=== PATIENT | male | born 1960 | race Caucasian/White ===

== ENCOUNTER 2016-10-27 21:18 | Inpatient (IN) | payer OTHER, MEDICARE ==
[~2016-10-27] VITALS: Ht 177.8 cm; Wt 82.0 kg
[~2016-10-27 21:18] MED LIST: ABIL5TAB6 PO; ACLI1AER2 INH; FENO160T PO; FURO20TA PO; GLIP10TA6 PO; INSU100V SQ; LANS30CA PO; LOPE2TAB3 PO; METF500 PO; MOBI15TA PO; OXYM20TA PO; PRAV40TA PO; TAMS5CAP PO; VENL75TA PO; VENTAER INH; ZOFR4TAB3 SL
[2016-10-27 21:38] VITALS: BP 156/78; PULSE 72; RESP 18; TEMP 97.5; O2SAT 95
--- NOTE | 2016-10-27 22:18 | PD ---
HPI Chief Complaint: Psychiatric Symptoms Time Seen by Provider: 22:15 Travel History International Travel<30 days: No Contact w/Intl Traveler<30days: No Traveled to known affect area: No History of Present Illness HPI 56-year-old male that presents to the ED for evaluation of psych. Patient was Valladares acted by police after apparently he made suicidal statements to police. Patient states that he feels that presents is taking medications but it doesn't seem to be helping. Per patient he has more stressors in his life that are worsening his depression. He states that he has a history of hypertension and diabetes. Per patient he takes medications for depression but does seem to be working any more. He also states that he abuses cocaine. He denies any recently. He has no homicidal ideation. He states that his plan is to take all his pills. He denies any recent injury. No falls. No chest pain or shortness of breath. States that his symptoms are moderate. This has been worsening for the past couple of weeks. PFSH Past Medical History Asthma: Yes Anxiety: Yes Depression: Yes Cancer: No Cardiovascular Problems: Yes High Cholesterol: Yes Diabetes: Yes (TYPE 2) Gastrointestinal Disorders: Yes (hernia repair at age 8 ) Genitourinary: No Immune Disorder: No Musculoskeletal: No Neurologic: No Psychiatric: Yes Reproductive: No Respiratory: Yes (ASTHMA) Immunizations Current: Yes Thyroid Disease: No Past Surgical History Abdominal Surgery: Yes (hernia, appendectomy) Appendectomy: Yes Other Surgery: Yes (hernia repair) Social History Alcohol Use: Yes (occasionally) Tobacco Use: Yes (1 ppd) Substance Use: No Allergies-Medications (Allergen,Severity, Reaction): Coded Allergies: Trazodone (Verified Allergy, Unknown, Swelling, 10/27/16) Reported Meds & Prescriptions Reported Meds & Active Scripts Active Loperamide (Loperamide HCl) 2 Mg Tab 2 Mg PO DIRECTED PRN One tablet after each loose stool. Not to exceed 8 tablets per day. Zofran Odt (Ondansetron Odt) 4 Mg Tab 4 Mg SL Q6HR PRN Reported Effexor (Venlafaxine HCl) 75 Mg Tab 75 Mg PO DAILY Lansoprazole 30 Mg Capdr 30 Mg PO DAILY Ventolin Hfa 18 GM Inh (Albuterol Sulfate) 90 Mcg/Act Aer 2 Puff INH Q4H PRN Pravachol (Pravastatin) 40 Mg Tab 40 Mg PO HS Opana ER (Crush Resistant) (Oxymorphone HCl) 20 Mg Tab 20 Mg PO Q12H Mobic (Meloxicam) 15 Mg Tab 15 Mg PO DAILY Glucophage (Metformin HCl) 500 Mg Tab 500 Mg PO TIDPC With meals Glipizide 10 Mg Tab 10 Mg PO BIDAC Take 30 minutes before a meal Furosemide 20 Mg Tab 20 Mg PO DAILY Flomax (Tamsulosin HCl) 0.4 Mg Cap 0.4 Mg PO HS Abilify (Aripiprazole) 5 Mg Tab 5 Mg PO DAILY Tudorza Pressair Inh (Aclidinium [place] Inh) 400 Mcg/Act Aerp 1 Puff INH BID Fenofibrate 160 Mg Tab 160 Mg PO DAILY Humalog Mix 75-25 Inj (Insulin Lispro Protam/Lispro Human) 1,000 Unit/10 Ml Susp 10 Units SQ BID Review of Systems Except as stated in HPI: all other systems reviewed are Neg Physical Exam Narrative GENERAL: SKIN: Warm and dry. HEAD: Atraumatic. Normocephalic. EYES: Pupils equal and round. No scleral icterus. No injection or drainage. ENT: No nasal bleeding or discharge. Mucous membranes pink and moist. Tongue is midline. No uvula deviation. NECK: Trachea midline. No JVD. CARDIOVASCULAR: Regular rate and rhythm. No murmurs, S3, S4. RESPIRATORY: No accessory muscle use. Clear to auscultation. Breath sounds equal bilaterally. GASTROINTESTINAL: Abdomen soft, non-tender, nondistended. Hepatic and splenic margins not palpable. MUSCULOSKELETAL: Extremities without clubbing, cyanosis, or edema. No obvious deformities. Full range of motion of the upper and lower extremities bilaterally. 2+ pulses bilaterally. NEUROLOGICAL: Awake and alert. No obvious cranial nerve deficits. Motor grossly within normal limits. Five out of 5 muscle strength in the arms and legs. Normal speech. PSYCHIATRIC: Depressed mood and affect; insight and judgment normal. Data Data Last Documented VS Vital Signs Date Time Temp Pulse Resp B/P Pulse Ox O2 Delivery O2 Flow Rate FiO2 10/27/16 21:38 97.5 72 18 156/78 95 Orders Complete Blood Count With Diff (10/27/16 21:44) Comprehensive Metabolic Panel (10/27/16 21:44) Psych Screen (10/27/16 21:44) Drug Screen, Random Urine (10/27/16 21:44) Alcohol (Ethanol) (10/27/16 21:44) Labs Laboratory Tests Test 10/27/16 22:15 White Blood Count 10.3 TH/MM3 Red Blood Count 5.06 MIL/MM3 Hemoglobin 15.0 GM/DL Hematocrit 43.6 % Mean Corpuscular Volume 86.2 FL Mean Corpuscular Hemoglobin 29.6 PG Mean Corpuscular Hemoglobin 34.4 % Concent Red Cell Distribution Width 12.9 % Platelet Count 238 TH/MM3 Mean Platelet Volume 8.2 FL Neutrophils (%) (Auto) 62.3 % Lymphocytes (%) (Auto) 27.1 % Monocytes (%) (Auto) 7.7 % Eosinophils (%) (Auto) 2.5 % Basophils (%) (Auto) 0.4 % Neutrophils # (Auto) 6.4 TH/MM3 Lymphocytes # (Auto) 2.8 TH/MM3 Monocytes # (Auto) 0.8 TH/MM3 Eosinophils # (Auto) 0.3 TH/MM3 Basophils # (Auto) 0.0 TH/MM3 CBC Comment DIFF FINAL Differential Comment Sodium Level 134 MEQ/L Potassium Level 3.7 MEQ/L Chloride Level 96 MEQ/L Carbon Dioxide Level 30.0 MEQ/L Anion Gap 8 MEQ/L Blood Urea Nitrogen 10 MG/DL Creatinine 1.00 MG/DL Estimat Glomerular Filtration 78 ML/MIN Rate Random Glucose 283 MG/DL Calcium Level 8.6 MG/DL Total Bilirubin 0.3 MG/DL Aspartate Amino Transf 15 U/L (AST/SGOT) Alanine Aminotransferase 36 U/L (ALT/SGPT) Alkaline Phosphatase 84 U/L Total Protein 7.1 GM/DL Albumin 3.9 GM/DL Ethyl Alcohol Level LESS THAN 3 MG/DL [facility] Medical Decision Making Medical Screen Exam Complete: Yes Emergency Medical Condition: Yes Medical Record Reviewed: Yes Interpretation(s) CBC & BMP Diagram 10/27/16 22:15 tox negative Differential Diagnosis Depression versus suicidal ideation versus anxiety versus adjustment disorder versus mood disorder versus bipolar disorder versus schizophrenia versus paranoid disorder versus psychosis versus substance abuse versus alcohol abuse versus alcohol induced psychosis versus homicidality addition versus cutting versus personality disorder Narrative Course 56-year-old male that presents to the ED for evaluation of psych. Patient was properly examined and was found to have signs and symptoms consistent with psychiatric illness. No sign of acute medical distress. Labs were drawn. Patient will be medically clear. Okay to be seen by psych. Mental health screening was discussed with the patient. Diagnosis Primary Impression: Depression Qualified Code: F33.1 - Moderate episode of recurrent major depressive disorder Flaco Gregg Oct 27, 2016 22:18
[2016-10-27 22:28] LABS: AUTOMATED NEUTROPHIL # 6.4 TH/MM3 (1.8-7.7); BASOPHIL % 0.4 % (0.0-2.0); EOSINOPHIL # 0.3 TH/MM3 (0-0.4); EOSINOPHIL % 2.5 % (0.0-4.0); HEMATOCRIT 43.6 % (39.0-51.0); HEMO FLAGS DIFF FINAL; LYMPH % 27.1 % (9.0-44.0); LYMPHOCYTE # 2.8 TH/MM3 (1.0-4.8); MEAN CELL VOLUME 86.2 FL (80.0-100.0); MEAN CORPUSCULAR HEMOGLOBIN 29.6 PG (27.0-34.0); MEAN CORPUSCULAR HGB CONC 34.4 % (32.0-36.0); MONO % 7.7 % (0.0-8.0); NEUT % 62.3 % (16.0-70.0); PLATELET COUNT 238 TH/MM3 (150-450); RED BLOOD COUNT 5.06 MIL/MM3 (4.50-5.90); RED CELL DISTRIBUTION WIDTH 12.9 % (11.6-17.2); WHITE BLOOD COUNT 10.3 TH/MM3 (4.0-11.0)
[2016-10-27 22:42] LABS: ANION GAP 8 MEQ/L (5-15)
[2016-10-27 22:46] LABS: ALKALINE PHOSPHATASE 84 U/L (45-117); ALT (GPT) 36 U/L (12-78); AST (GOT) 15 U/L (15-37); BLOOD UREA NITROGEN 10 MG/DL (7-18); CHLORIDE 96 MEQ/L (98-107); GLOMERULAR FILTRATION RATE 78 ML/MIN (>89); POTASSIUM 3.7 MEQ/L (3.5-5.1); SODIUM (NA) 134 MEQ/L (136-145); TOTAL BILIRUBIN ADULT 0.3 MG/DL (0.2-1.0)
[2016-10-28 00:12] LABS: AMPHETAMINE, URINE NEG (NEG); BARBITURATES, URINE NEG (NEG); COCAINE, URINE POS (NEG)
[2016-10-28 02:00] VITALS: BP 110/58; PULSE 64; RESP 18; O2SAT 97
[2016-10-28 06:13] VITALS: BP 101/51; PULSE 70; RESP 18; O2SAT 95
--- NOTE | 2016-10-28 12:29 | PD ---
History of Present Illness Chief Complaint: Psychiatric Symptoms Time Seen by Provider: 12:15 Travel History International Travel<30 Days: No Contact w/Intl Traveler<30days: No Known affected area: No Legal Status Legal Status: Valladares Act Valladares Act Signed By: Chuy Valladares Act Comment: 10/27/162039 History of Present Illness: History of Present Illness HPI 56-year-old male with history of depression possibly bipolar disorder who presents to ED under a BA initiated by [facility]. As per the report " subject is depressed and without help he will take all of his prescriptions to kill himself ". The patient reports that he feels his medications aren't working well and last night he was on the phone with his sister and " she called the police". He is vague as to why she possibly called the police and then states " possibly what I said. I don't know". He is vague and only provides minimal information. He is irritable and becomes angry when attempts are made to clarify information. From what I can gather he has been taking Effexor and Abilify for the past 6 years. He stopped taking the Abilify 4 weeks ago and for the past 3 or so weeks has been feeling more depressed with reported low energy and anhedonia, difficulty falling asleep or oversleeping as well as decreased appetite. Patient has also been using cocaine Patient was monitored in [place]. He presented no behavioral concerns besides his lack of effort at providing information. No suicidality." to help me with my depression". He went to see his psychiatrist who advised him to restart the Abilify. He is unable to tell me who the psychiatrist is although he reports he has been under his care for at least the past 2 and half years. He is alert and oriented. Mood is irritable with low frustration tolerance. Speech is clear and logical. Does not appear to be responding to internal stimuli. He continues to endorse suicidal ideation with intent to overdose on his prescription medication. he has access to multiple medications. EMR reviewed and this is his first contact with [facility] [place] [facility]. Current toxicology is positive for cocaine as well as opiates which are prescribed. PFSH Past Medical History Asthma: Yes Anxiety: Yes Depression: Yes Cancer: No Cardiovascular Problems: Yes High Cholesterol: Yes Diabetes: Yes (TYPE 2) Patient Takes Glucophage: Yes (10/27/2016 1700) Gastrointestinal Disorders: Yes (hernia repair at age 8 ) Genitourinary: No Immune Disorder: No Musculoskeletal: No Neurologic: No Psychiatric: Yes Reproductive: No Respiratory: Yes (ASTHMA) Immunizations Current: Yes Thyroid Disease: No Tetanus Vaccination: Unknown Past Surgical History Abdominal Surgery: Yes (hernia, appendectomy) Appendectomy: Yes Other Surgery: Yes (hernia repair) Psychiatric History Psychiatric History Hx Psychiatric Treatment: Reports last psychiatric hosp approximately 6 years ago in [place]. No other information is provided. History of Inpatient Treatment: Yes Guns or firearms in home: No Social History In the area x 3 years. Lives alone. On disability. Unable to obtain other information. Hx Alcohol Use: Yes (occasionally) Hx Tobacco Use: Yes (1 ppd) Hx Substance Use: Yes Substance Use Type: Benzos (Valium,Xanax), Cocaine Hx of Substance Use Treatment: No Family Psychiatric History None reported. Allergies-Medications (Allergen,Severity, Reaction): Coded Allergies: Trazodone (Verified Allergy, Unknown, Swelling, 10/27/16) Reported Meds & Prescriptions Reported Meds & Active Scripts Active Loperamide (Loperamide HCl) 2 Mg Tab 2 Mg PO DIRECTED PRN One tablet after each loose stool. Not to exceed 8 tablets per day. Zofran Odt (Ondansetron Odt) 4 Mg Tab 4 Mg SL Q6HR PRN Reported Effexor (Venlafaxine HCl) 75 Mg Tab 75 Mg PO DAILY Lansoprazole 30 Mg Capdr 30 Mg PO DAILY Ventolin Hfa 18 GM Inh (Albuterol Sulfate) 90 Mcg/Act Aer 2 Puff INH Q4H PRN Pravachol (Pravastatin) 40 Mg Tab 40 Mg PO HS Opana ER (Crush Resistant) (Oxymorphone HCl) 20 Mg Tab 20 Mg PO Q12H Mobic (Meloxicam) 15 Mg Tab 15 Mg PO DAILY Glucophage (Metformin HCl) 500 Mg Tab 500 Mg PO TIDPC With meals Glipizide 10 Mg Tab 10 Mg PO BIDAC Take 30 minutes before a meal Furosemide 20 Mg Tab 20 Mg PO DAILY Flomax (Tamsulosin HCl) 0.4 Mg Cap 0.4 Mg PO HS Abilify (Aripiprazole) 5 Mg Tab 5 Mg PO DAILY Tudorza Pressair Inh (Aclidinium [place] Inh) 400 Mcg/Act Aerp 1 Puff INH BID Fenofibrate 160 Mg Tab 160 Mg PO DAILY Humalog Mix 75-25 Inj (Insulin Lispro Protam/Lispro Human) 1,000 Unit/10 Ml Susp 10 Units SQ BID Review of Systems ROS Limitations: Uncooperative Psychiatric: COMPLAINS OF: Depression, Suicidal Ideation Exam Alert: Yes [place]: Person (ox4) Mood: Depressed, Other (irritable, easily annoyed. ) Affect: Other (congruent to mood) Speech: Clear, Logical Eye Contact: Indirect Memory Intact: Comment (poor at present. Not formally tetsted) Hallucinations: Other (negative) Delusions: No Suicidal: Plan (to overdose on his prescribed medications), Ideation Homicidal: Ideation (deneis) Insight/Judgement poor. poor MDM Medical Decision Making Medical Record Reviewed: Yes Assessment/Plan 56 year old male with history of depression , unknown to [facility] psychiatry dept, under a BA for suicidal ideation with plan of overdosing on his prescriptions. At this time patient remains guarded, evasive, irritable and only minimally cooperative. He continues to endorse suicidal ideation. Current toxicology is positive for cocaine which with reported poor medication adherence may be contributing to current presentations and symptoms.At this time increase in level of care such as inpatient psychiatric treatment is recommended in order to further evaluate, stabilize symptoms, maintain his safety and adjust medications Orders Complete Blood Count With Diff (10/27/16 21:44) Comprehensive Metabolic Panel (10/27/16 21:44) Psych Screen (10/27/16 21:44) Drug Screen, Random Urine (10/27/16 21:44) Alcohol (Ethanol) (10/27/16 21:44) Diet Diabetic (10/28/16 Breakfast) Diet Regular Basic (10/28/16 Lunch) Results Vital Signs Date Time Temp Pulse Resp B/P Pulse Ox O2 Delivery O2 Flow Rate FiO2 10/28/16 06:13 70 18 101/51 95 Room Air 10/28/16 02:00 64 18 110/58 97 Room Air 10/27/16 21:38 97.5 72 18 156/78 95 Laboratory Tests Test 10/27/16 10/27/16 22:15 23:40 White Blood Count 10.3 Red Blood Count 5.06 Hemoglobin 15.0 Hematocrit 43.6 Mean Corpuscular Volume 86.2 Mean Corpuscular Hemoglobin 29.6 Mean Corpuscular Hemoglobin 34.4 Concent Red Cell Distribution Width 12.9 Platelet Count 238 Mean Platelet Volume 8.2 Neutrophils (%) (Auto) 62.3 Lymphocytes (%) (Auto) 27.1 Monocytes (%) (Auto) 7.7 Eosinophils (%) (Auto) 2.5 Basophils (%) (Auto) 0.4 Neutrophils # (Auto) 6.4 Lymphocytes # (Auto) 2.8 Monocytes # (Auto) 0.8 Eosinophils # (Auto) 0.3 Basophils # (Auto) 0.0 CBC Comment DIFF FINAL Differential Comment Sodium Level 134 Potassium Level 3.7 Chloride Level 96 Carbon Dioxide Level 30.0 Anion Gap 8 Blood Urea Nitrogen 10 Creatinine 1.00 Estimat Glomerular Filtration 78 Rate Random Glucose 283 Calcium Level 8.6 Total Bilirubin 0.3 Aspartate Amino Transf 15 (AST/SGOT) Alanine Aminotransferase 36 (ALT/SGPT) Alkaline Phosphatase 84 Total Protein 7.1 Albumin 3.9 Ethyl Alcohol Level LESS THAN 3 Urine Opiates Screen POS Urine Barbiturates Screen NEG Urine Amphetamines Screen NEG Urine Benzodiazepines Screen NEG Urine Cocaine Screen POS Urine Cannabinoids Screen NEG Diagnosis Primary Impression: Depression Admitting Information Admitting Physician Requests: Admit Problem Qualifiers Primary Impression: Depression Qualified Code: F33.1 - Moderate episode of recurrent major depressive disorder Holly Shine Oct 28, 2016 12:29
[2016-10-28 14:00] VITALS: BP 108/53; PULSE 54; RESP 16
[2016-10-28] MEDS ORDERED: ALUMINUM/MAGNESIUM/SIMETH 30 ML CUP PO PRN (14:00)
[2016-10-28] MEDS ORDERED: MAGNESIUM HYDROXIDE SUSP 30 ML CUP PO PRN (14:00)
[2016-10-28] MEDS ORDERED: ACETAMINOPHEN 325 MG TAB PO PRN (14:00)
--- NOTE | 2016-10-28 15:18 | PD.CONS ---
HPI Service [facility] Consult Requested By Dr. Roth Reason for Consult Medical comanagement of diabetes and hypertension Primary Care Physician Non-Staff Diagnoses: History of Present Illness This is a 56-year-old male admitted to the psych unit after patient was Valladares acted for suicidal statements. Patient was taken off his antidepressants about 4 weeks ago and now, with more stressors, he is feeling depressed and would like to kill himself. Has a history of hypertension, diabetes and asthma but these have been stable. He does not his last hemoglobin A1c. Patient denies any chest pain, shortness of breath, nausea, vomiting, recent hypoglycemia, fever or lower extremity swelling. Review of Systems ROS Limitations: Other (All other pertinent systems were reviewed and are negative.) Past Family Social History Allergies: Coded Allergies: Trazodone (Verified Allergy, Unknown, Swelling, 10/27/16) Past Medical History Depression Asthma Anxiety Diabetes mellitus Dyslipidemia Past Surgical History Herniorrhaphy Appendectomy Reported Medications Loperamide (Loperamide HCl) 2 Mg Tab 2 Mg PO DIRECTED PRN One tablet after each loose stool. Not to exceed 8 tablets per day. Zofran Odt (Ondansetron Odt) 4 Mg Tab 4 Mg SL Q6HR PRN Effexor (Venlafaxine HCl) 75 Mg Tab 75 Mg PO DAILY Lansoprazole 30 Mg Capdr 30 Mg PO DAILY Ventolin Hfa 18 GM Inh (Albuterol Sulfate) 90 Mcg/Act Aer 2 Puff INH Q4H PRN Pravachol (Pravastatin) 40 Mg Tab 40 Mg PO HS Opana ER (Crush Resistant) (Oxymorphone HCl) 20 Mg Tab 20 Mg PO Q12H Mobic (Meloxicam) 15 Mg Tab 15 Mg PO DAILY Glucophage (Metformin HCl) 500 Mg Tab 500 Mg PO TIDPC With meals Glipizide 10 Mg Tab 10 Mg PO BIDAC Take 30 minutes before a meal Furosemide 20 Mg Tab 20 Mg PO DAILY Flomax (Tamsulosin HCl) 0.4 Mg Cap 0.4 Mg PO HS Abilify (Aripiprazole) 5 Mg Tab 5 Mg PO DAILY Tudorza Pressair Inh (Aclidinium [place] Inh) 400 Mcg/Act Aerp 1 Puff INH BID Fenofibrate 160 Mg Tab 160 Mg PO DAILY Humalog Mix 75-25 Inj (Insulin Lispro Protam/Lispro Human) 1,000 Unit/10 Ml Susp 10 Units SQ BID Family History No family history of diabetes or heart problems Social History Admits to using cocaine, last use was 4 days ago, allegedly does not use it often. Drinks alcohol occasionally, smokes 1 pack a day Physical Exam Vital Signs Vital Signs Date Time Temp Pulse Resp B/P Pulse Ox O2 Delivery O2 Flow Rate FiO2 10/28/16 06:13 70 18 101/51 95 Room Air 10/28/16 02:00 64 18 110/58 97 Room Air 10/27/16 21:38 97.5 72 18 156/78 95 Physical Exam Not in distress, well-nourished, looks stated age PERRL, pink conjunctiva without injection, anicteric Nose without bleeding, airway patent, oropharynx clear Supple neck, no masses or thyromegaly, trachea midline Normal rate and regular rhythm, no murmurs gallops or rubs appreciated. Clear to auscultation and symmetric bilaterally, normal respiratory effort. Normal bowel sounds, soft, non-tender, nondistended, no guarding. Extremities without clubbing, cyanosis, or edema. No rash of generalized distribution. Skin is warm and dry. AAO x3, no cranial nerve deficits, moves all 4 extremities, no focal neurologic deficits Normal mood, appropriate affect Laboratory Laboratory Tests Test 10/27/16 10/27/16 22:15 23:40 White Blood Count 10.3 Red Blood Count 5.06 Hemoglobin 15.0 Hematocrit 43.6 Mean Corpuscular Volume 86.2 Mean Corpuscular Hemoglobin 29.6 Mean Corpuscular Hemoglobin 34.4 Concent Red Cell Distribution Width 12.9 Platelet Count 238 Mean Platelet Volume 8.2 Neutrophils (%) (Auto) 62.3 Lymphocytes (%) (Auto) 27.1 Monocytes (%) (Auto) 7.7 Eosinophils (%) (Auto) 2.5 Basophils (%) (Auto) 0.4 Neutrophils # (Auto) 6.4 Lymphocytes # (Auto) 2.8 Monocytes # (Auto) 0.8 Eosinophils # (Auto) 0.3 Basophils # (Auto) 0.0 CBC Comment DIFF FINAL Differential Comment Sodium Level 134 Potassium Level 3.7 Chloride Level 96 Carbon Dioxide Level 30.0 Anion Gap 8 Blood Urea Nitrogen 10 Creatinine 1.00 Estimat Glomerular Filtration 78 Rate Random Glucose 283 Calcium Level 8.6 Total Bilirubin 0.3 Aspartate Amino Transf 15 (AST/SGOT) Alanine Aminotransferase 36 (ALT/SGPT) Alkaline Phosphatase 84 Total Protein 7.1 Albumin 3.9 Ethyl Alcohol Level LESS THAN 3 Urine Opiates Screen POS Urine Barbiturates Screen NEG Urine Amphetamines Screen NEG Urine Benzodiazepines Screen NEG Urine Cocaine Screen POS Urine Cannabinoids Screen NEG Result Diagram: 10/27/16221410/27/162214 Assessment and Plan Problem List: (1) Asthma ICD Code: J45.909 Status: Chronic (2) GERD (gastroesophageal reflux disease) ICD Code: K21.9 Status: Chronic (3) Hyperlipidemia ICD Code: E78.5 Status: Chronic (4) Diabetes ICD Code: E11.9 Status: Chronic Assessment and Plan This is a 56-year-old male with history of diabetes mellitus and dyslipidemia presenting to the hospital with suicidal ideations, admitted to the psych unit. Diabetes mellitus-restart glipizide, metformin, Humalog per home dose and sliding scale insulin, check hemoglobin A1c. Kidney function stable, on Lasix. Asthma-not in exacerbation, continue Ventolin as needed. Dyslipidemia-continue fenofibrate and pravastatin BPH-restart Flomax DVT prophylaxis: Low risk, patient ambulatory Thank you very much for this consult. We will follow along with you. Monisha Guevara MD Oct 28, 2016 15:18
[2016-10-28] MEDS ORDERED: ALBUTEROL SULFATE 90 MCG/ACT HFA 8 GM INHALER INH PRN (15:30)
[2016-10-28] MEDS ORDERED: ONDANSETRON ODT 4 MG TAB SL PRN (15:30)
[2016-10-28] MEDS ORDERED: ALBUTEROL SULFATE 90 MCG/ACT HFA 18 GM INHALER INH PRN (15:33)
[2016-10-28] MEDS ORDERED: DEXTROSE 50% IN WATER 50 ML VIAL(D50) IV PUSH PRN (15:45)
[2016-10-28] MEDS ORDERED: GLUCAGON 1 MG/ML VIAL OTHER PRN (15:45)
[2016-10-28] MEDS: glipiZIDE 10 MG TAB PO SCH (15:54)
[2016-10-28] MEDS: INSULIN ASPART SUPPLEMENTAL SCALE SQ SCH ×2 (15:58→21:14)
[2016-10-28 16:19] VITALS: BP 122/67; PULSE 54; RESP 16; TEMP 98.4; O2SAT 96
[2016-10-28] MEDS: metFORMIN HCL 500 MG TAB PO SCH (17:46)
[2016-10-28] MEDS ORDERED: INSULIN LISPRO PROTAMINE SQ SCH (21:00)
[2016-10-28] MEDS ORDERED: [UNRECOGNIZED DRUG - OTHER] SQ SCH (21:00)
[2016-10-28] MEDS ORDERED: INSULIN LISPRO SQ SCH (21:00)
[2016-10-28] MEDS ORDERED: ACLIDINIUM INH SCH (21:00)
[2016-10-28] MEDS ORDERED: ACLIDINIUM BROMIDE INH SCH (21:00)
[2016-10-28] MEDS: OXYMORPHONE 10 MG E.R. TAB PO SCH (21:12)
[2016-10-28] MEDS: PRAVASTATIN SOD 40 MG TAB PO SCH (21:15)
[2016-10-28] MEDS: TAMSULOSIN HCL 0.4 MG CAP PO SCH (21:15)
[2016-10-29 06:00] VITALS: BP 124/62; PULSE 5; RESP 17; TEMP 97.3; O2SAT 98
[2016-10-29] MEDS: INSULIN ASPART SUPPLEMENTAL SCALE SQ SCH ×4 (06:21→22:26)
[2016-10-29] MEDS: glipiZIDE 10 MG TAB PO SCH ×2 (06:22→16:12)
[2016-10-29] MEDS ORDERED: NON-FORMULARY DRUG (Fenofibrate 160 MG) PO SCH (09:00)
[2016-10-29] MEDS ORDERED: NON-FORMULARY DRUG (Lansoprazole 30 MG) PO SCH (09:00)
[2016-10-29] MEDS: metFORMIN HCL 500 MG TAB PO SCH ×3 (09:34→18:54)
[2016-10-29] MEDS: MELOXICAM 15 MG TAB PO SCH (09:34)
[2016-10-29] MEDS: FENOFIBRATE 145 MG TAB PO SCH (09:35)
[2016-10-29] MEDS: FUROSEMIDE 20 MG TAB PO SCH (09:35)
[2016-10-29] MEDS: PANTOPRAZOLE SOD 40 MG DELAYED RELEASE TAB PO SCH (09:35)
[2016-10-29 09:39] LABS: ANION GAP 5 MEQ/L (5-15); BICARBONATE 31.4 MEQ/L (21.0-32.0); BLOOD UREA NITROGEN 12 MG/DL (7-18); CHLORIDE 103 MEQ/L (98-107); GLOMERULAR FILTRATION RATE 99 ML/MIN (>89); HDL CHOLESTEROL 39.5 MG/DL (40.0-60.0); LDL CHOLESTEROL 55 MG/DL (0-99); SODIUM (NA) 139 MEQ/L (136-145)
[2016-10-29 11:02] LABS: HEMOGLOBIN A1a 1.3 %; HEMOGLOBIN A1b 2.3 %; HEMOGLOBIN Ao 80.7 %; HEMOGLOBIN LA1C 1.9 %; HEMOGLOBIN P3 4.1 %
[2016-10-29] MEDS: OXYMORPHONE 10 MG E.R. TAB PO SCH ×2 (12:57→21:00)
--- NOTE | 2016-10-29 14:29 | HHI.HP ---
Provisional Diagnosis Admission Date Oct 28, 2016 at 13:11 [place] I. Major depressive disorder, recurrent, severe, without psychosis, cocaine use disorder [place] II. Deferred [place] III. Diabetes mellitus Certification of Person's Competence To Provide Express and Informed Consent I have personally examined Ruperto Longoria , a person being served at [facility] on, Oct 29, 2016 14:24. Express and informed consent means consent voluntarily given in writing, by a competent person, after sufficient explanation and disclosure of the subject matter involved to enable the person to make a knowing and willful decision without any element of force, fraud, deceit, duress, or other form of constraint or coercion. This person is 18 years of age or older, is not now known to be incompetent to consent to treatment with a guardian advocate, and does not have a health care surrogate or proxy currently making medical treatment decisions. I have found this person to be one of the following: [X] Competent to provide express and informed consent, as defined above, for voluntary admission to this facility and is competent to provide express and informed consent for treatment. He/she has the consistent capacity to make well reasoned, willful, and knowing decisions concerning his or her medical or mental health treatment. The person fully and consistently understands the purpose of the admission for examination/placement and is fully capable of personally exercising all rights [place] Incompetent to provide express and informed consent to voluntary admission, and this is incompetent to provide express and informed consent to treatment. The person must be transferred to involuntary status and a petition for a guardian advocate filed with the Circuit Court. [] Refusing to provide express and informed consent to voluntary admission but is competent to provide express and informed consent for treatment. The person must be discharged or transferred to involuntary status. Form shall be completed within 24 hours of a person's arrival at the receiving facility and filed in the clinical record of each person: 1. Admitted on a voluntary basis 2. Permitted to provide express and informed consent to his/her own treatment 3. Allowed to transfer from involuntary to voluntary status 4. Prior to permitting a person to consent to his or her own treatment after having been previously found incompetent to consent to treatment. History of Present Illness Capacity: Has Capacity HPI As per Ms. Shine documentation: 56-year-old male with history of depression possibly bipolar disorder who presents to ED under a BA initiated by [facility]. As per the report " subject is depressed and without help he will take all of his prescriptions to kill himself". The patient reports that he feels his medications aren't working well and last night he was on the phone with his sister and " she called the police". He is vague as to why she possibly called the police and then states " possibly what I said. I don't know". He is vague and only provides minimal information. He is irritable and becomes angry when attempts are made to clarify information. From what I can gather he has been taking Effexor and Abilify for the past 6 years. He stopped taking the Abilify 4 weeks ago and for the past 3 or so weeks has been feeling more depressed with reported low energy and anhedonia, difficulty falling asleep or oversleeping as well as decreased appetite. Patient has also been using cocaine Patient was monitored in J pod. He presented no behavioral concerns besides his lack of effort at providing information. No suicidality." to help me with my depression ". He went to see his psychiatrist who advised him to restart the Abilify. He is unable to tell me who the psychiatrist is although he reports he has been under his care for at least the past 2 and half years. He is alert and oriented. Mood is irritable with low frustration tolerance. Speech is clear and logical. Does not appear to be responding to internal stimuli. He continues to endorse suicidal ideation with intent to overdose on his prescription medication. he has access to multiple medications. The patient is a 56-year-old man, domiciled alone in [place], single, unemployed, on disability, with psychiatric history of depression, numerous psychiatric hospitalizations, no previous suicidal attempts, he is on Abilify 50 mg and Effexor 150 mg prescribed by PCP, hasn't been taking the medication for the last 2 or 3 weeks, significant medical history of diabetes mellitus, brought to the hospital under Valladares act due to depression and suicidal ideation. Today a psychiatric evaluation the 2600 units patient is found in his bed, he seems to be objectively depressed, with marked psychomotor recommendation, speech latency, he says that the reason he is here is because he feels very depressed and he feels that he is giving up and he cannot take to live anymore. Patient states that he has been having frequent thoughts of committing suicide by overdosing with his pill. Patient hasn't been taking her psychotropics for a few days now. He feels that his functional levels are decreasing, he reports increased anhedonia, hopelessness, helplessness, decreased energy and appetite, increased necessity to sleep and avoid the reality and generalized pessimism. He has ambivalent suicidal ideation, no plan. He denies homicidal ideation, he denies visual and auditory hallucinations. Patient is logical, coherent and relevant in his conversation. No paranoia, no delusions, no ideas of reference, no flight of ideas, agitation or disorganized behavior are present. Patient is oriented 3, no gross cognitive impairment observed. Patient reports the use of cocaine occasionally and marijuana everyday, he denies the use of alcohol. Review of Systems Constitutional: DENIES: Diaphoretic episodes, Fatigue, Fever, Weight gain, Weight loss, Chills, Dizziness, Change in appetite, Night Sweats Endocrine: DENIES: Heat/cold intolerance, Polydipsia, Polyuria, Polyphagia Eyes: DENIES: Blurred vision, Diplopia, Eye inflammation, Eye pain, Vision loss , Photosensitivity, Double Vision Ears, nose, mouth, throat: DENIES: Tinnitus, Hearing loss, Vertigo, Nasal discharge, Oral lesions, Throat pain, Hoarseness, Ear Pain, Running Nose, Epistaxis, Sinus Pain, Toothache, Odynophagia Respiratory: DENIES: Apneas, Cough, Snoring, Wheezing, Hemoptysis, Sputum production, Shortness of breath Genitourinary: DENIES: Sexual dysfunction, Urinary frequency, Urinary incontinence, Urgency, Hematuria, Dysuria, Nocturia, Penile Discharge, Testicular Pain, Testicular Swelling Musculoskeletal: DENIES: Joint pain, Muscle aches, Stiffness, Joint Swelling, Back pain, Neck pain Integumentary: DENIES: Abnormal pigmentation, Nail changes, Pruritus, Rash Immunologic/allergic: DENIES: Eczema, Urticaria Neurologic: DENIES: Abnormal gait, Headache, Localized weakness, Paresthesias, Seizures, Speech Problems, Tremor, Poor Balance Psychiatric: DENIES: Anxiety, Confusion, Mood changes, Depression, Hallucinations, Agitation, Suicidal Ideation, Homicidal Ideation, Delusions Past Psych History Violence risk - self (6 mos) Is increased Substance Abuse History Drugs/Alcohol past 12 months Patient reports occasional use cocaine, daily use of marijuana Past Family Social History Coded Allergies: Trazodone (Verified Allergy, Unknown, Swelling, 10/27/16) Active Scripts Loperamide 2 Mg Tab2 Mg PO DIRECTED PRN (DIARRHEA) #10 TAB Ref 0 One tablet after each loose stool. Not to exceed 8 tablets per day. Prov:Paty Falcon MD 05/24/16 Ondansetron Odt (Zofran Odt)4 Mg Tab4 Mg SL Q6HR PRN (Nausea/Vomiting) #15 TAB Ref 0 Prov:Paty Falcon MD 05/24/16 Reported Medications Venlafaxine (Effexor)75 Mg Tab75 Mg PO DAILY #30 TAB Ref 0 05/24/16 Lansoprazole 30 Mg Capdr30 Mg PO DAILY Ref 0 05/24/16 Albuterol 18 GM Inh (Ventolin Hfa 18 GM Inh)90 Mcg/Act Aer2 Puff INH Q4H PRN ( SHORTNESS OF BREATH) Ref 0 05/24/16 Pravastatin (Pravachol)40 Mg Tab40 Mg PO HS #30 TAB Ref 0 05/24/16 Oxymorphone ER 12 HR (Opana ER (Crush Resistant))20 Mg Tab20 Mg PO Q12H Ref 0 05/24/16 Meloxicam (Mobic)15 Mg Tab15 Mg PO DAILY Ref 0 05/24/16 Metformin (Glucophage)500 Mg Qso200 Mg PO TIDPC #90 TAB Ref 0 With meals 05/24/16 Glipizide 10 Mg Tab10 Mg PO BIDAC #60 TAB Ref 0 Take 30 minutes before a meal 05/24/16 Furosemide 20 Mg Tab20 Mg PO DAILY #30 TAB Ref 0 05/24/16 Tamsulosin (Flomax)0.4 Mg Cap0.4 Mg PO HS Ref 0 05/24/16 Aripiprazole (Abilify)5 Mg Tab5 Mg PO DAILY #30 TAB Ref 0 05/24/16 Aclidinium Aurora Inh (Tudorza Pressair Inh)400 Mcg/Act Aerp1 Puff INH BID #1 INHALER Ref 0 05/24/16 Fenofibrate 160 Mg Ytj744 Mg PO DAILY #30 TAB Ref 0 05/24/16 Insulin Lispro Protamine-Lispro 75-25 Inj (Humalog Mix 75-25 Inj)1,000 Unit/10 Ml Susp10 Units SQ BID Ref 0 05/24/16 Current Medications Medications (Trade) Dose Ordered Sig/Luca Route Start Time Stop Time Status Last Admin (Tylenol) 650 mg Q4H PRN PO 10/28/16 14:00 (Milk Of Magnesia Liq) 30 ml DAILY PRN PO 10/28/16 14:00 (Mag-Al Plus Susp Liq) 30 ml Q6H PRN PO 10/28/16 14:00 (Lasix) 20 mg DAILY PO 10/29/16 09:00 10/29/16 09:35 (Glucotrol) 10 mg BIDAC PO 10/28/16 16:00 10/29/16 06:22 (Mobic) 15 mg DAILY PO 10/29/16 09:00 10/29/16 09:34 (Glucophage) 500 mg TIDPC PO 10/28/16 18:30 10/29/16 13:54 (Zofran Odt) 4 mg Q6HR PRN SL 10/28/16 15:30 (Opana Er) 20 mg Q12H PO 10/28/16 21:00 10/29/16 12:57 (Pravachol) 40 mg HS PO 10/28/16 21:00 10/28/16 21:15 (Flomax) 0.4 mg HS PO 10/28/16 21:00 10/28/16 21:15 (Ventolin Hfa Inh) 2 puff Q4H PRN INH 10/28/16 15:33 (D50w (Vial) Inj) 25 ml UNSCH PRN IV PUSH 10/28/16 15:45 (Glucagon Inj) 1 mg UNSCH PRN OTHER 10/28/16 15:45 (Tricor) 145 mg DAILY PO 10/29/16 09:00 10/29/16 09:35 (Protonix) 40 mg DAILY PO 10/29/16 09:00 10/29/16 09:35 Patient Own Medication PT OWN MED: ALONDRA... BID SQ 10/28/16 21:00 Hold (Effexor Xr) 37.5 mg DAILY PO 10/29/16 14:30 Family History He denies Social History Patient was born and raised in [place], he is in [place] alone, single , unemployed, supported by [facility], his highest level of education is 12th grade Physical Exam Vital Signs Vital Signs Date Time Temp Pulse Resp B/P Pulse Ox O2 Delivery O2 Flow Rate FiO2 10/29/16 06:00 97.3 5 17 124/62 98 10/28/16 14:00 Room Air Mental Status Examination Appearance man, age appearing, good hygiene, irritable, guarded superficially cooperative Speech: Hesitant, Slow Orientation: x3 Memory: Unremarkable Thought Process: Logical Thought Content: Unremarkable Hallucination Type: None Attention and Concentration: Abnormal Suicidal Ideation: Yes Previous Suicide Attempts: No Homicidal Ideation: No Previous Homicide Attempts: No Judgment: Poor Affect: Irritable Mood: Oppositional Motor Activity: Normal gait Assessment & Plan Problem List: (1) Depression Assessment & Plan: The patient is a 56-year-old man, domiciled alone in [place], single, unemployed, on disability, with psychiatric history of depression, numerous psychiatric hospitalizations, no previous suicidal attempts, he is on Abilify 50 mg and Effexor 150 mg prescribed by PCP, hasn't been taking the medication for the last 2 or 3 weeks, significant medical history of diabetes mellitus, brought to the hospital under Valladares act due to depression and suicidal ideation. On psychiatric evaluation the patient presents symptomatology of severe depression in the context of multiple psychosocial stressors and noncompliant with medications. Patient also reports suicidal ideation without any plan at this moment. No protective factors identified, several risk factors are present. Patient meets criteria for psychiatric hospitalization. I will start slowly his medications, Effexor 37.5 mg for the depression. Patient will be admitted in voluntarily basis. used building materials yard worker intervention to complete psychosocial assessment, potential collateral information, and also to start discharge planning. Extensive psychoeducation, supportive motivation provided. ICD Code: F32.9 Assessment & Plan Estimated LOS: days Problem Qualifiers (1) Depression: Rod Hunt MD Oct 29, 2016 14:29
[2016-10-29] MEDS: VENLAFAXINE HCL XR 37.5 MG CAP PO SCH (16:12)
[2016-10-29 18:08] VITALS: BP 122/61; PULSE 63; RESP 18; TEMP 98.2; O2SAT 97
[2016-10-29] MEDS: TAMSULOSIN HCL 0.4 MG CAP PO SCH (21:00)
[2016-10-29] MEDS: PRAVASTATIN SOD 40 MG TAB PO SCH (21:00)
[2016-10-30 05:28] VITALS: BP 128/80; PULSE 79; RESP 18; TEMP 98.2; O2SAT 96
[2016-10-30] MEDS: INSULIN ASPART SUPPLEMENTAL SCALE SQ SCH ×4 (06:02→21:00)
[2016-10-30] MEDS: glipiZIDE 10 MG TAB PO SCH ×2 (06:02→16:23)
[2016-10-30] MEDS: metFORMIN HCL 500 MG TAB PO SCH ×3 (09:11→19:24)
[2016-10-30] MEDS: MELOXICAM 15 MG TAB PO SCH (09:11)
[2016-10-30] MEDS: FENOFIBRATE 145 MG TAB PO SCH (09:11)
[2016-10-30] MEDS: FUROSEMIDE 20 MG TAB PO SCH (09:11)
[2016-10-30] MEDS: VENLAFAXINE HCL XR 37.5 MG CAP PO SCH (09:12)
[2016-10-30] MEDS: PANTOPRAZOLE SOD 40 MG DELAYED RELEASE TAB PO SCH (09:12)
[2016-10-30] MEDS: OXYMORPHONE 10 MG E.R. TAB PO SCH ×2 (09:12→21:01)
[2016-10-30 18:00] VITALS: BP 145/76; PULSE 76; RESP 18; TEMP 97.1; O2SAT 97
[2016-10-30] MEDS: TAMSULOSIN HCL 0.4 MG CAP PO SCH (21:01)
[2016-10-30] MEDS: PRAVASTATIN SOD 40 MG TAB PO SCH (21:01)
--- NOTE | 2016-10-30 21:33 | HHI.PYPN ---
Subjective Remarks Pt seen and discussed with staff. He remains depressed but reports mood is a bit improved. When asked about SI, he states "I don't know". He has been compliant with treatment but has been seclusive to room. No medication side effects. Objective Alert: Yes [place]: Person, Place, Date, Situation Mood: Depressed Affect: Blunted Memory Intact: Immediate, Recent, Remote Hallucinations: Other (none) Delusions: No Delusion Type: Other (none) Suicidal: Ideation (states that he doesn't know) Homicidal: Ideation (deneis) Insight/Judgment poor Vitals/IOs Vital Signs Date Time Temp Pulse Resp B/P Pulse Ox O2 Delivery O2 Flow Rate FiO2 10/30/16 18:00 97.1 76 18 145/76 97 10/28/16 14:00 Room Air Assessment & Plan Problem List: (1) Depression ICD Code: F32.9 Assessment & Plan Continue current tx plan. Estimated LOS: days Justification for Cont. Inpt. impairments in safety Problem Qualifiers (1) Depression: Keturah Justin MD Oct 30, 2016 21:32
[2016-10-31] MEDS: INSULIN ASPART SUPPLEMENTAL SCALE SQ SCH ×4 (07:00→21:41)
[2016-10-31] MEDS: glipiZIDE 10 MG TAB PO SCH ×2 (07:00→16:30)
[2016-10-31 07:24] VITALS: BP 132/72; PULSE 72; RESP 18; TEMP 97.9; O2SAT 96
[2016-10-31] MEDS: MELOXICAM 15 MG TAB PO SCH (09:00)
[2016-10-31] MEDS: FUROSEMIDE 20 MG TAB PO SCH (09:00)
[2016-10-31] MEDS: FENOFIBRATE 145 MG TAB PO SCH (09:00)
[2016-10-31] MEDS: PANTOPRAZOLE SOD 40 MG DELAYED RELEASE TAB PO SCH (09:00)
[2016-10-31] MEDS: VENLAFAXINE HCL XR 37.5 MG CAP PO SCH (09:00)
[2016-10-31] MEDS: OXYMORPHONE 10 MG E.R. TAB PO SCH ×2 (09:00→21:42)
[2016-10-31] MEDS: metFORMIN HCL 500 MG TAB PO SCH ×3 (09:30→18:30)
--- NOTE | 2016-10-31 14:15 | HHI.PR ---
Subjective Remarks Follow-up visit HTN, DM 2. Patient seen and examined. Reports is doing well. Denies pain and discomfort. Denies SOB/ dyspnea. Denies chest pain, palpitations, headaches, dizziness. Denies fevers, chills, n/v/d. Objective Vitals Vital Signs Date Time Temp Pulse Resp B/P Pulse Ox O2 Delivery O2 Flow Rate FiO2 10/31/16 07:24 97.9 72 18 132/72 96 10/30/16 18:00 97.1 76 18 145/76 97 I/O 10/30/16 10/30/16 10/30/16 10/31/16 10/31/16 10/31/16 07:00 15:00 23:00 07:00 15:00 23:00 Intake Total 480 ml Balance 480 ml Intake Oral 480 ml Result Diagram: 10/27/16 2215 10/29/16 0820 Objective Remarks GENERAL: This is a well-nourished, well-developed patient, in no apparent distress. SKIN: Warm and dry. HEENT: Normocephalic. Pupils equal round and reactive. Nose without bleeding. Airway patent. NECK: Trachea midline. No JVD. Supple. CARDIOVASCULAR: Regular rate and rhythm without murmurs, gallops, or rubs. RESPIRATORY: Clear to auscultation. Breath sounds equal bilaterally. No wheezes , rales, or rhonchi. GASTROINTESTINAL: Abdomen soft, non-tender, nondistended. Bowel Sounds normoactive x4. MUSCULOSKELETAL: Extremities without clubbing, cyanosis, or edema. NEUROLOGICAL: Awake and alert. Oriented x 3. No focal neuro deficit. OLIVA. Normal speech. A/P Problem List: (1) Asthma ICD Code: J45.909 Status: Chronic (2) GERD (gastroesophageal reflux disease) ICD Code: K21.9 Status: Chronic (3) Hyperlipidemia ICD Code: E78.5 Status: Chronic (4) Diabetes ICD Code: E11.9 Status: Chronic Assessment and Plan This is a 56-year-old male with history of diabetes mellitus and dyslipidemia presenting to the hospital with suicidal ideations, admitted to the psych unit. Diabetes mellitus-restart glipizide, metformin, Humalog per home dose and sliding scale insulin, check hemoglobin A1c. Kidney function stable, on Lasix. - Hemoglobin A1c 9.5 - Patient's blood glucose on Accu-Chek have been less than 182. - Discussed with patient that he needs to be compliant with his diet when he is gets to be discharged. Hemoglobin A1c is most probably reflective of his dietary noncompliance and possible noncompliance of medication. Patient's blood glucose is well controlled in the unit. Asthma-not in exacerbation, continue Ventolin as needed. Dyslipidemia-continue fenofibrate and pravastatin BPH-restart Flomax DVT prophylaxis: Low risk, patient ambulatory Stable from Hospitalist standpoint. We will sign off. Reconsult as needed. Written by Vicky Mcguire, acting as scribe for Dr. Guevara on 10/31/16 at 16: 27. This note was transcribed by scribe Vicky Mcguire. I, Dr. Monisha Guevara personally performed the history, physical exam, and medical decision making; and confirmed the accuracy of the information in the transcribed note. Authenticated by Dr. Monisha Guevara, on 10/31/16 at 16:27. Vicky Portillo Oct 31, 2016 14:15 Monisha Guevara MD Oct 31, 2016 16:29
--- NOTE | 2016-10-31 15:57 | HHI.PYPN ---
Subjective Remarks Patient discussed with treatment team, patient seen in his room nurse Deena, patient is alert calm no quite vague and evasive and all his responses answering I don't know, or I can't remember, a lighted to asked that, most of my questions when asked about his positive urine toxicology he minimizes it says he only use with cocaine to treat his depression. Though he did reluctantly acknowledge that he is on probation for fleeing an eluding. That he has a lodge officer. That he needs to do her yard drop in each meeting was lodge officer. I question this might be part of the motivation for this hospitalization. Patient also gives a litany her various medical issues. Though he does acknowledge having a place to stay when he leaves here. I do question this gentleman's motivation for this hospitalization. We'll continue to observe for a brief period of time we'll attempt to refrain from any substances of abuse with him Review of Systems Except as stated in HPI: all other systems reviewed are Neg Objective Alert: Yes [place]: Person, Place, Date, Situation Mood: Depressed Affect: Blunted Memory Intact: Immediate, Recent, Remote Hallucinations: Other (none) Delusions: No Delusion Type: Other (none) Suicidal: Ideation (states that he doesn't know) Homicidal: Ideation (deneis) Insight/Judgment Poor Vitals/IOs Vital Signs Date Time Temp Pulse Resp B/P Pulse Ox O2 Delivery O2 Flow Rate FiO2 10/31/16 07:24 97.9 72 18 132/72 96 10/28/16 14:00 Room Air Intake and Output 10/30/16 10/30/16 10/31/16 08:00 16:00 00:00 Intake Total 480 ml Balance 480 ml Assessment & Plan Problem List: (1) Depression ICD Code: F32.9 Assessment & Plan Estimated LOS: days patient appears somewhat depressed and anxious though it may be related to the possible issues related to his positive urine toxicology. For now continue treatment Justification for Cont. Inpt. At this time patient will decompensate if placed in a lower level of care Discharge Planning To be determined Problem Qualifiers (1) Depression: Ronaldo Steiner MD Oct 31, 2016 15:57
[2016-10-31 20:39] VITALS: BP 132/88; PULSE 75; RESP 18; TEMP 97.3; O2SAT 97
[2016-10-31] MEDS: TAMSULOSIN HCL 0.4 MG CAP PO SCH (21:42)
[2016-10-31] MEDS: PRAVASTATIN SOD 40 MG TAB PO SCH (21:42)
[2016-11-01 06:10] VITALS: BP 113/70; PULSE 91; RESP 18; TEMP 98; O2SAT 96
[2016-11-01] MEDS: INSULIN ASPART SUPPLEMENTAL SCALE SQ SCH (06:38)
[2016-11-01] MEDS: glipiZIDE 10 MG TAB PO SCH (06:38)
[2016-11-01] MEDS: metFORMIN HCL 500 MG TAB PO SCH (09:06)
[2016-11-01] MEDS: FUROSEMIDE 20 MG TAB PO SCH (09:06)
[2016-11-01] MEDS: VENLAFAXINE HCL XR 37.5 MG CAP PO SCH (09:07)
[2016-11-01] MEDS: OXYMORPHONE 10 MG E.R. TAB PO SCH (09:07)
[2016-11-01] MEDS: MELOXICAM 15 MG TAB PO SCH (09:07)
[2016-11-01] MEDS: PANTOPRAZOLE SOD 40 MG DELAYED RELEASE TAB PO SCH (09:07)
[2016-11-01] MEDS: FENOFIBRATE 145 MG TAB PO SCH (09:07)
[2016-11-01] MEDS ORDERED: Venlafaxine Xr PO (11:29)
[2016-11-01] MEDS ORDERED: METF500 PO (11:29)
[2016-11-01] MEDS ORDERED: FENO145T2 PO (11:29)
[2016-11-01] MEDS ORDERED: GLIP10TA6 PO (11:29)
[2016-11-01] MEDS ORDERED: MELO-1 PO (11:29)
[2016-11-01] MEDS ORDERED: FURO20TA PO (11:29)
[2016-11-01] MEDS ORDERED: TAMS5CAP PO (11:29)
[2016-11-01] MEDS ORDERED: PRAV40TA PO (11:29)
[2016-11-01] MEDS ORDERED: OXYM10TA PO (11:29)
[2016-11-01] MEDS ORDERED: PANT40TA3 PO (11:29)
--- NOTE | 2016-11-01 11:42 | HHI.DS ---
Psychiatry Discharge Summary Inpatient Psychiatric care?: Yes Advance Directive: No Reason Not Provided: Due to Patient Condition Mental Health AdvanceDirective: No Health Care Proxy: No Admission Admission Date Oct 28, 2016 at 13:11 Admission Diagnosis: (1) Malingering ICD Code: Z76.5 (2) Major depressive disorder, recurrent episode, moderate with anxious distress ICD Code: F33.1 Brief History As per Ms. Shine documentation: 56-year-old male with history of depression possibly bipolar disorder who presents to ED under a BA initiated by GLADYS. As per the report " subject is depressed and without help he will take all of his prescriptions to kill himself". The patient reports that he feels his medications aren't working well and last night he was on the phone with his sister and " she called the police". He is vague as to why she possibly called the police and then states " possibly what I said. I don't know". He is vague and only provides minimal information. He is irritable and becomes angry when attempts are made to clarify information. From what I can gather he has been taking Effexor and Abilify for the past 6 years. He stopped taking the Abilify 4 weeks ago and for the past 3 or so weeks has been feeling more depressed with reported low energy and anhedonia, difficulty falling asleep or oversleeping as well as decreased appetite. Patient has also been using cocaine Patient was monitored in J pod. He presented no behavioral concerns besides his lack of effort at providing information. No suicidality." to help me with my depression ". He went to see his psychiatrist who advised him to restart the Abilify. He is unable to tell me who the psychiatrist is although he reports he has been under his care for at least the past 2 and half years. He is alert and oriented. Mood is irritable with low frustration tolerance. Speech is clear and logical. Does not appear to be responding to internal stimuli. He continues to endorse suicidal ideation with intent to overdose on his prescription medication. he has access to multiple medications. The patient is a 56-year-old man, domiciled alone in [place], single, unemployed, on disability, with psychiatric history of depression, numerous psychiatric hospitalizations, no previous suicidal attempts, he is on Abilify 50 mg and Effexor 150 mg prescribed by PCP, hasn't been taking the medication for the last 2 or 3 weeks, significant medical history of diabetes mellitus, brought to the hospital under Valladares act due to depression and suicidal ideation. Today a psychiatric evaluation the 2600 units patient is found in his bed, he seems to be objectively depressed, with marked psychomotor recommendation, speech latency, he says that the reason he is here is because he feels very depressed and he feels that he is giving up and he cannot take to live anymore. Patient states that he has been having frequent thoughts of committing suicide by overdosing with his pill. Patient hasn't been taking her psychotropics for a few days now. He feels that his functional levels are decreasing, he reports increased anhedonia, hopelessness, helplessness, decreased energy and appetite, increased necessity to sleep and avoid the reality and generalized pessimism. He has ambivalent suicidal ideation, no plan. He denies homicidal ideation, he denies visual and auditory hallucinations. Patient is logical, coherent and relevant in his conversation. No paranoia, no delusions, no ideas of reference, no flight of ideas, agitation or disorganized behavior are present. Patient is oriented 3, no gross cognitive impairment observed. Patient reports the use of cocaine occasionally and marijuana everyday, he denies the use of alcohol. Tobacco Use In Past 30 Days: 5 or More Cigarettes/Day Alcohol Use: Never Hospital Course Patient's hospital course was significant for his non-participation in the milieu is staying in his room and sleeping. Is somewhat subtle drug-seeking. He was also consistently evasive, ambiguous, about past history, mental illness , substance abuse history, and legal issues. Attempts to discuss discharge plans were met with resistance and manipulation. Attempted to discuss his legal issues and how his positive urine toxicology on admission may be detrimental to his compliance with his mounted police officer. It appears he is appointment with that person soon though he is ambiguous about this also. I discussed possible discharge with him yesterday he did acknowledge having a place to go. And follow-up. Today he is saying that his patient stay has no electricity he is listing multiple somatic problems all I feel are an attempt to extend his hospitalization. There appears to be a marked degree of manipulation and perhaps malingering related to this. Patient will be discharged today with 1 month supply of his scheduled medications. He'll be referred to [facility] for outpatient medication services, outpatient voluntary substance abuse assessment. Also be referred to NA. Patient was upset by this making statements that he would go directly to the emergency room upon discharged to be readmitted he told them he does have the right to get repeat assessment if he so desires but that he would be discharged today as mentioned above Results Blood Pressure 113 / 70 Vital Signs Date Time Temp Pulse Resp B/P Pulse Ox O2 Delivery O2 Flow Rate FiO2 11/01/16 06:10 98.0 91 18 113/70 96 10/28/16 14:00 Room Air Laboratory Results Test 10/29/16 08:20 Hemoglobin A1c 9.5 % (4.3-6.0) Triglycerides Level 167 MG/DL (42-150) Cholesterol Level 128 MG/DL (120-200) LDL Cholesterol 55 MG/DL (0-99) HDL Cholesterol 39.5 MG/DL (40.0-60.0) Summary of Procedures None done Pending results at discharge: No Medications # of Antipsychotic meds at D/C: 0 Approp Antipsych med options 1 - Minimum of three failed multiple trials of monotherapy. 2 - Documented plan to taper to monotherapy due to previous use of multiple meds OR cross-taper in progress at D/C. 3 - Documentation of augmentation of Clozapine. 4 - Justification other than those listed in allowable values 1-3, document here : Discharge Discharge Date: Nov 01, 2016 Discharge Diagnosis: (1) Major depressive disorder, recurrent episode, moderate with anxious distress Diagnosis: Principal ICD Code: F33.1 (2) Malingering Diagnosis: Principal ICD Code: Z76.5 Mental Status Exam at Disch Alert oriented angry irritable manipulative white male appears stated age. He has normal active. His mood is euthymic to angry irritable and dysphoric, affect is increased range and intensity. Speech rate and rhythm are increased he is somewhat tangential and circumstantial. There are no auditory or visual hallucinations no delusions noted insight and judgment is poor cognition grossly intact patient did make vague suicidal ideation statements though I feel this is also a manipulation in an attempt to prolong his hospitalization. That would be untherapeutic for him to be retained Pt Condition on Discharge: Stable Discharge Disposition: Discharge Home Discharge Instructions Diet Instructions: As Tolerated, No Restrictions Activities you can perform: Regular-No Restrictions Scheduled Appointment: Chinmay Lunsford (also referred to NA, voluntary assessment outpatient Chinmay Marchman act substance abuse) Discharge Time > 30 minutes Discharge/Advance Care Plan Health Problems: (1) Depression Goals to promote your health * To prevent worsening of your condition and complications * To maintain your health at the optimal level Directions to meet your goals Take your medications as prescribed Follow your dietary instruction Follow activity as directed Keep your appointments as scheduled Take your immunizations and boosters as scheduled If your symptoms worsen call your PCP, if no PCP go to Urgent Care Center or Emergency Room For 06/02 questions related to your inpatient stay or results of tests pending at discharge, please contact Dr. Ronaldo Steiner at Smoking is Dangerous to Your Health. Avoid second hand smoking Ronaldo Steiner MD Nov 01, 2016 11:42
== END 2016-11-01 13:35 | disposition home or self-care (01) | DRG 885 ==
LOC: NEPJ 21:18 → NEDA 10-28 13:11 → H260 10-28 15:17
PROVIDERS: ADMIT Psychiatry & Neurology Psychiatry; ATTEND Psychiatry & Neurology Psychiatry
DX: F33.1 Major depressive disorder, recurrent, moderate (principal); R45.851 Suicidal ideations; E11.9 Type 2 diabetes mellitus without complications; I10 Essential (primary) hypertension; J45.909 Unspecified asthma, uncomplicated; E78.5 Hyperlipidemia, unspecified; K21.9 Gastro-esophageal reflux disease without esophagitis; N40.0 Benign prostatic hyperplasia without lower urinary tract symptoms; F12.90 Cannabis use, unspecified, uncomplicated; F14.10 Cocaine abuse, uncomplicated; F17.210 Nicotine dependence, cigarettes, uncomplicated; Z76.5 Malingerer [conscious simulation]; Z79.4 Long term (current) use of insulin; Z91.11 Patient's noncompliance with dietary regimen; Z91.14 Patient's other noncompliance with medication regimen
CPT/HCPCS: 80048; 80053; 80061; 80307; 82948; 83036; 85025; 99284; J1815

== ENCOUNTER 2016-11-14 10:55 | Emergency (ER) | payer MEDICARE, OTHER ==
[~2016-11-14 10:55] MED LIST changes: +FENO145T2 PO; -FENO160T PO; -LANS30CA PO; +MELO-1 PO; -MOBI15TA PO; +OXYM10TA PO; -OXYM20TA PO; +PANT40TA3 PO; +Venlafaxine Xr PO
[2016-11-14 10:58] VITALS: BP 158/95; PULSE 64; RESP 16; TEMP 98.9; O2SAT 100
[2016-11-14] MEDS ORDERED: METOCLOPRAMIDE HCL 10 MG/2 ML VIAL IV PUSH ONE (11:15)
[2016-11-14] MEDS ORDERED: SODIUM CHLOR 0.9% 1000 ML INJ 1,000 ML IV ONE (11:15)
--- NOTE | 2016-11-14 11:17 | PD ---
HPI Chief Complaint: GI Complaint Time Seen by Provider: 11:01 Travel History International Travel<30 days: No Contact w/Intl Traveler<30days: No Traveled to known affect area: No History of Present Illness HPI 56-year-old male presents with nonbloody emesis and diarrhea and general ill feeling over the past couple days. He arrives by ambulance and received IV fluids and Zofran in route. He states he still having persistent nausea. He denies any abdominal pain fever or other concurrent complaints. His sugar in the ambulance was in the 300s. PFSH Past Medical History Asthma: Yes ("never uses" inhaler) Anxiety: Yes Depression: Yes Cancer: No Cardiovascular Problems: Yes High Cholesterol: Yes Diabetes: Yes Patient Takes Glucophage: Yes Gastrointestinal Disorders: Yes (hernia repair at age 8 ) Genitourinary: No Headaches: No Immune Disorder: No Musculoskeletal: Yes Neurologic: No Psychiatric: Yes (Hx of treatment for depression) Reproductive: No Respiratory: Yes (ASTHMA) Immunizations Current: Yes Thyroid Disease: No Past Surgical History Abdominal Surgery: Yes (hernia) Appendectomy: Yes Other Surgery: Yes (hernia repair) Social History Alcohol Use: Yes (occasionally) Tobacco Use: Yes (1 ppd) Substance Use: Yes (HX OF +cocaine, DENIES TODAY) Allergies-Medications (Allergen,Severity, Reaction): Coded Allergies: Trazodone (Verified Allergy, Unknown, Swelling, 11/14/16) Reported Meds & Prescriptions Reported Meds & Active Scripts Active Phenergan (Promethazine HCl) 25 Mg Tab 25 Mg PO Q6H PRN [Venlafaxine Xr] 37.5 MG Caper 37.5 Mg PO DAILY Flomax (Tamsulosin HCl) 0.4 Mg Cap 0.4 Mg PO HS Pravachol (Pravastatin) 40 Mg Tab 40 Mg PO HS Pantoprazole (Pantoprazole Sodium) 40 Mg Tab 40 Mg PO DAILY Oxymorphone ER 12 HR (Oxymorphone HCl) 10 Mg Tab 20 Mg PO Q12H Glucophage (Metformin HCl) 500 Mg Tab 500 Mg PO TIDPC Meloxicam 15 Mg Tab 15 Mg PO DAILY Glipizide 10 Mg Tab 10 Mg PO BIDAC Furosemide 20 Mg Tab 20 Mg PO DAILY Fenofibrate 145 Mg Tab 145 Mg PO DAILY Loperamide (Loperamide HCl) 2 Mg Tab 2 Mg PO DIRECTED PRN One tablet after each loose stool. Not to exceed 8 tablets per day. Zofran Odt (Ondansetron Odt) 4 Mg Tab 4 Mg SL Q6HR PRN Reported Effexor (Venlafaxine HCl) 75 Mg Tab 75 Mg PO DAILY Ventolin Hfa 18 GM Inh (Albuterol Sulfate) 90 Mcg/Act Aer 2 Puff INH Q4H PRN Abilify (Aripiprazole) 5 Mg Tab 5 Mg PO DAILY Tudorza Pressair Inh (Aclidinium [place] Inh) 400 Mcg/Act Aerp 1 Puff INH BID Humalog Mix 75-25 Inj (Insulin Lispro Protam/Lispro Human) 1,000 Unit/10 Ml Susp 10 Units SQ BID Review of Systems Except as stated in HPI: all other systems reviewed are Neg Physical Exam Narrative GENERAL: Well-nourished, well-developed patient. SKIN: Warm and dry. HEAD: Normocephalic and atraumatic. EYES: No injection or drainage. ENT: No nasal drainage noted. NECK: Supple, trachea midline. CARDIOVASCULAR: Regular rate and rhythm RESPIRATORY: Breath sounds equal bilaterally. No accessory muscle use. GASTROINTESTINAL: Abdomen soft, non-tender, nondistended. EXTREMITIES: No edema. NEUROLOGICAL: Awake and alert. Motor and sensory grossly within normal limits. Normal speech. Data Data Last Documented VS Vital Signs Date Time Temp Pulse Resp B/P Pulse Ox O2 Delivery O2 Flow Rate FiO2 11/14/16 10:58 98.9 64 16 158/95 100 Orders Complete Blood Count With Diff (11/14/16 11:01) Comprehensive Metabolic Panel (11/14/16 11:01) Iv Access Insert/Monitor (11/14/16 11:01) Sodium Chlor 0.9% 1000 Ml Inj (Ns 1000 M (11/14/16 11:15) Metoclopramide Inj (Reglan Inj) (11/14/16 11:15) Labs Laboratory Tests Test 11/14/16 11:15 White Blood Count 16.5 TH/MM3 Red Blood Count 5.45 MIL/MM3 Hemoglobin 15.8 GM/DL Hematocrit 46.6 % Mean Corpuscular Volume 85.6 FL Mean Corpuscular Hemoglobin 29.1 PG Mean Corpuscular Hemoglobin 34.0 % Concent Red Cell Distribution Width 12.7 % Platelet Count 323 TH/MM3 Mean Platelet Volume 8.4 FL Neutrophils (%) (Auto) 86.2 % Lymphocytes (%) (Auto) 8.3 % Monocytes (%) (Auto) 2.5 % Eosinophils (%) (Auto) 0.0 % Basophils (%) (Auto) 3.0 % Neutrophils # (Auto) 14.2 TH/MM3 Lymphocytes # (Auto) 1.4 TH/MM3 Monocytes # (Auto) 0.4 TH/MM3 Eosinophils # (Auto) 0.0 TH/MM3 Basophils # (Auto) 0.5 TH/MM3 CBC Comment DIFF FINAL Differential Comment Sodium Level 137 MEQ/L Potassium Level 4.3 MEQ/L Chloride Level 97 MEQ/L Carbon Dioxide Level 28.3 MEQ/L Anion Gap 12 MEQ/L Blood Urea Nitrogen 18 MG/DL Creatinine 1.10 MG/DL Estimat Glomerular Filtration 69 ML/MIN Rate Random Glucose 320 MG/DL Calcium Level 9.1 MG/DL Total Bilirubin 0.4 MG/DL Aspartate Amino Transf 22 U/L (AST/SGOT) Alanine Aminotransferase 37 U/L (ALT/SGPT) Alkaline Phosphatase 85 U/L Total Protein 7.3 GM/DL Albumin 4.1 GM/DL [facility] Medical Decision Making Medical Screen Exam Complete: Yes Emergency Medical Condition: Yes Medical Record Reviewed: Yes (pmh confirmed) Interpretation(s) CBC & BMP Diagram 11/14/16 11:15 Differential Diagnosis gastroenteritis, acute renal failure, electrolyte deficiency Narrative Course Will check blood work and dose with IV fluids and Reglan and reevaluate Labs with elevation in white blood cell count, repeat abdominal exam is benign and patient again denies abdominal pain. He agrees to supportive care and to return if he develops abdominal pain, persistent vomiting, fever or other concerns and at that time he should have CT imaging. He agrees to hold on it now to limit radiation exposure given he has no abdominal pain, no emesis here Diagnosis Primary Impression: Vomiting and diarrhea Patient Instructions: General Instructions Additional Instructions: return as needed, follow with primary tommorrow, phenergan as needed, keep hydrated Med/Other Pt SpecificInfo: Prescription(s) given Scripts Promethazine (Phenergan)25 Mg Tab25 Mg PO Q6H PRN (NAUSEA OR VOMITING) #15 TAB Prov:Kavya Herrera MD 11/14/16 Disposition: 01 DISCHARGE HOME Condition: Stable Kavya Herrera MD November 14, 2016 11:17
[2016-11-14 11:27] LABS: AUTOMATED NEUTROPHIL # 14.2 TH/MM3 (1.8-7.7); BASOPHIL # 0.5 TH/MM3 (0-0.2); HEMATOCRIT 46.6 % (39.0-51.0); HEMO FLAGS DIFF FINAL; LYMPH % 8.3 % (9.0-44.0); LYMPHOCYTE # 1.4 TH/MM3 (1.0-4.8); MEAN CELL VOLUME 85.6 FL (80.0-100.0); MEAN CORPUSCULAR HEMOGLOBIN 29.1 PG (27.0-34.0); MONO % 2.5 % (0.0-8.0); NEUT % 86.2 % (16.0-70.0); PLATELET COUNT 323 TH/MM3 (150-450); RED BLOOD COUNT 5.45 MIL/MM3 (4.50-5.90); RED CELL DISTRIBUTION WIDTH 12.7 % (11.6-17.2); WHITE BLOOD COUNT 16.5 TH/MM3 (4.0-11.0)
[2016-11-14 11:36] LABS: CHLORIDE 97 MEQ/L (98-107); POTASSIUM 4.3 MEQ/L (3.5-5.1); SODIUM (NA) 137 MEQ/L (136-145)
[2016-11-14 11:40] LABS: ANION GAP 12 MEQ/L (5-15); BICARBONATE 28.3 MEQ/L (21.0-32.0); BLOOD UREA NITROGEN 18 MG/DL (7-18)
[2016-11-14 11:43] LABS: ALT (GPT) 37 U/L (12-78); AST (GOT) 22 U/L (15-37); GLOMERULAR FILTRATION RATE 69 ML/MIN (>89)
[2016-11-14 11:45] LABS: TOTAL BILIRUBIN ADULT 0.4 MG/DL (0.2-1.0)
[2016-11-14 11:46] LABS: ALKALINE PHOSPHATASE 85 U/L (45-117)
[2016-11-14] MEDS ORDERED: PROM25TA5 PO (11:51)
== END 2016-11-14 12:10 | disposition home or self-care (01) ==
LOC: PHED 10:55
DX: R11.2 Nausea with vomiting, unspecified (principal); R19.7 Diarrhea, unspecified
CPT/HCPCS: 80053; 85025; 96374; 99284; J2765; J7030

== ENCOUNTER 2016-12-11 14:52 | Emergency (ER) | payer MEDICARE, OTHER ==
[~2016-12-11] VITALS: Ht 177.8 cm; Wt 90.0 kg
[~2016-12-11 14:52] MED LIST changes: +PROM25TA5 PO
[2016-12-11 15:02] VITALS: BP 128/80; PULSE 87; RESP 20; TEMP 98.6; O2SAT 98
--- NOTE | 2016-12-11 15:03 | PD ---
HPI . Valladares Act Chief Complaint: Suicidal ideation Time Seen by Provider: 15:00 Travel History International Travel<30 days: No Contact w/Intl Traveler<30days: No History of Present Illness HPI Patient presents to us as a Valladares act because of suicidal ideation. He has sent a 1 text message today stating that he wanted to kill himself. The patient is now adamantly denying suicidal ideation. PFSH Past Medical History Asthma: Yes ("never uses" inhaler) Anxiety: Yes Depression: Yes Cancer: No Cardiovascular Problems: Yes High Cholesterol: Yes Diabetes: Yes Gastrointestinal Disorders: Yes (hernia repair at age 8 ) Genitourinary: No Headaches: No Immune Disorder: No Musculoskeletal: Yes Neurologic: No Psychiatric: Yes (Hx of treatment for depression) Reproductive: No Respiratory: Yes (ASTHMA) Immunizations Current: Yes Thyroid Disease: No Past Surgical History Abdominal Surgery: Yes (hernia) Appendectomy: Yes Other Surgery: Yes (hernia repair) Social History Alcohol Use: Yes (occasionally) Tobacco Use: Yes (1 ppd) Substance Use: Yes (HX OF +cocaine, DENIES TODAY) Allergies-Medications (Allergen,Severity, Reaction): Coded Allergies: Trazodone (Verified Allergy, Unknown, Swelling, 12/11/16) Reported Meds & Prescriptions Reported Meds & Active Scripts Active Flomax (Tamsulosin HCl) 0.4 Mg Cap 0.4 Mg PO HS Pravachol (Pravastatin) 40 Mg Tab 40 Mg PO HS Oxymorphone ER 12 HR (Oxymorphone HCl) 10 Mg Tab 20 Mg PO Q12H Glucophage (Metformin HCl) 500 Mg Tab 500 Mg PO TIDPC Glipizide 10 Mg Tab 10 Mg PO BIDAC Fenofibrate 145 Mg Tab 145 Mg PO DAILY Reported Mobic (Meloxicam) 15 Mg Tab 15 Mg PO DAILY Abilify (Aripiprazole) 5 Mg Tablet 5 Mg PO DAILY Effexor (Venlafaxine HCl) 75 Mg Tab 75 Mg PO DAILY Ventolin Hfa 18 GM Inh (Albuterol Sulfate) 90 Mcg/Act Aer 2 Puff INH Q4H PRN Humalog Mix 75-25 Inj (Insulin Lispro Protam/Lispro Human) 1,000 Unit/10 Ml Susp 15 Units SQ BID Review of Systems ROS Limitations: Uncooperative Physical Exam Narrative GENERAL: Awake and alert and in no acute distress. SKIN: Warm and dry. HEAD: Atraumatic. Normocephalic. EYES: Pupils equal and round. NECK: Trachea midline. CARDIOVASCULAR: Regular rate and rhythm. RESPIRATORY: No accessory muscle use. MUSCULOSKELETAL: No obvious deformities. No edema. NEUROLOGICAL: Awake and alert. No obvious cranial nerve deficits. Motor grossly within normal limits. Normal speech. PSYCHIATRIC: Very angry. Judgment poor. Data Data Last Documented VS Vital Signs Date Time Temp Pulse Resp B/P Pulse Ox O2 Delivery O2 Flow Rate FiO2 12/11/16 15:02 98.6 87 20 128/80 98 Orders Psych Screen (12/11/16 15:00) Drug Screen, Random Urine (12/11/16 15:00) Diet Regular Basic (12/11/16 Dinner) Labs Laboratory Tests Test 12/11/16 15:05 Urine Opiates Screen NEG Urine Barbiturates Screen NEG Urine Amphetamines Screen NEG Urine Benzodiazepines Screen NEG Urine Cocaine Screen NEG Urine Cannabinoids Screen NEG MDM Medical Decision Making Medical Screen Exam Complete: Yes Emergency Medical Condition: Yes Differential Diagnosis Differential diagnosis includes but is not limited to depression with suicidal gesture, suicide attempt, suicidal ideation, attention seeking behavior. Narrative Course Patient presents to us as a Valladares act because of suicidal ideation. Medical clearance exam has been initiated. He will then have a psych triage exam. The patient refused blood work. The J pod was consulted. They were agreeable to take the patient with only a drug screen. The drug screen has been done and is negative. The patient is now medically clear for a psychiatric evaluation. Diagnosis Primary Impression: Suicidal ideation Condition: Stable Corie Perkins MD December 11, 2016 15:03
[2016-12-11] MEDS ORDERED: ABIL15TA2 PO (15:05)
[2016-12-11] MEDS ORDERED: MOBI15TA PO (15:34)
[2016-12-11] MEDS ORDERED: ABIL5TAB7 PO (15:34)
[2016-12-11 16:24] LABS: AMPHETAMINE, URINE NEG (NEG); BARBITURATES, URINE NEG (NEG); COCAINE, URINE NEG (NEG)
[2016-12-11 22:07] VITALS: BP 121/63; PULSE 75; RESP 18; O2SAT 97
[2016-12-12 02:25] VITALS: BP 128/81; PULSE 76; RESP 19; O2SAT 95
[2016-12-12 06:29] VITALS: BP 125/75; PULSE 77; RESP 19; O2SAT 98
[2016-12-12 10:00] VITALS: BP 127/69; PULSE 78
--- NOTE | 2016-12-12 12:06 | PD ---
History of Present Illness Chief Complaint: Psychiatric Symptoms Time Seen by Provider: 10:50 Travel History International Travel<30 Days: No Contact w/Intl Traveler<30days: No Known affected area: No Legal Status Legal Status: Valladares Act Valladares Act Signed By: Chuy Nash History of Present Illness: History of Present Illness HPI Patient is a 56 jennifer old male with history of depression presents to us as a Valladares act initiated by GLADYS. BA sates that the family contacted the police after the patient sent messages via text threatening to kill himself. he deneid having sent the messages when the police arrived. EMR is reviewed. He was hospitalized at [facility] [place] for symptoms of depression. Reports he is medication compliant. Patient was monitored in J pod and presented no suicidality. The patient is alert and oriented. he states " I don't know why i am here. When further asked he states " I wanted to get some attention from my family and they were not answering my messages so I said I was going to kill myself". He denies any suicidality. PFSH Past Medical History Asthma: Yes Anxiety: Yes Depression: Yes Cancer: No Cardiovascular Problems: Yes High Cholesterol: Yes Diabetes: Yes Patient Takes Glucophage: Yes Gastrointestinal Disorders: Yes (hernia repair at age 8 ) Genitourinary: No Headaches: No Immune Disorder: No Musculoskeletal: Yes Neurologic: No Psychiatric: Yes (Hx of treatment for depression) Reproductive: No Respiratory: Yes (ASTHMA) Immunizations Current: Yes Thyroid Disease: No Tetanus Vaccination: < 5 Years Past Surgical History Abdominal Surgery: Yes (hernia) Appendectomy: Yes Other Surgery: Yes (hernia repair) Psychiatric History Psychiatric History Hx Psychiatric Treatment: [place] analy several years ago [facility] [place] History of Inpatient Treatment: Yes Guns or firearms in home: No Social History Single male. Lives by himself. On disability. Hx Alcohol Use: Yes (occasionally) Hx Tobacco Use: Yes (1 ppd) Hx Substance Use: No Substance Use Type: Benzos (Valium,Xanax), Cocaine Hx of Substance Use Treatment: No Family Psychiatric History negative Allergies-Medications (Allergen,Severity, Reaction): Coded Allergies: Trazodone (Verified Allergy, Unknown, Swelling, 12/11/16) Reported Meds & Prescriptions Reported Meds & Active Scripts Active Flomax (Tamsulosin HCl) 0.4 Mg Cap 0.4 Mg PO HS Pravachol (Pravastatin) 40 Mg Tab 40 Mg PO HS Oxymorphone ER 12 HR (Oxymorphone HCl) 10 Mg Tab 20 Mg PO Q12H Glucophage (Metformin HCl) 500 Mg Tab 500 Mg PO TIDPC Glipizide 10 Mg Tab 10 Mg PO BIDAC Fenofibrate 145 Mg Tab 145 Mg PO DAILY Reported Mobic (Meloxicam) 15 Mg Tab 15 Mg PO DAILY Abilify (Aripiprazole) 5 Mg Tablet 5 Mg PO DAILY Effexor (Venlafaxine HCl) 75 Mg Tab 75 Mg PO DAILY Ventolin Hfa 18 GM Inh (Albuterol Sulfate) 90 Mcg/Act Aer 2 Puff INH Q4H PRN Humalog Mix 75-25 Inj (Insulin Lispro Protam/Lispro Human) 1,000 Unit/10 Ml Susp 15 Units SQ BID Review of Systems Except as stated in HPI: all other systems reviewed are Neg Exam Alert: Yes [place]: Person (ox4) Mood: Calm Affect: Appropriate Speech: Clear, Logical Eye Contact: Normal Memory Intact: Comment (no impairmetn) Hallucinations: Other (negative) Delusions: No Suicidal: Ideation (deneis any) Homicidal: Ideation (deneis any) Insight/Judgement poor. not impaired. MDM Medical Decision Making Medical Record Reviewed: Yes Assessment/Plan 56 year old male with hx of depression who sent messages to his family stating he was going to kill himself because they were not responding to his calls. At this time the patient does not endorse any suicidal ideation.Does not meet BA criteria Orders Psych Screen (12/11/16 15:00) Drug Screen, Random Urine (12/11/16 15:00) Diet Regular Basic (12/11/16 Dinner) Diet 1800 Ada Cons Carb (12/12/16 Breakfast) Diet Regular Basic (12/12/16 Lunch) Results Vital Signs Date Time Temp Pulse Resp B/P Pulse Ox O2 Delivery O2 Flow Rate FiO2 12/12/16 10:00 78 127/69 Room Air 12/12/16 06:29 77 19 125/75 98 5/29/17 02:25 76 19 128/81 95 12/11/16 22:07 75 18 121/63 97 Room Air 12/11/16 15:02 98.6 87 20 128/80 98 Laboratory Tests Test 12/11/16 15:05 Urine Opiates Screen NEG Urine Barbiturates Screen NEG Urine Amphetamines Screen NEG Urine Benzodiazepines Screen NEG Urine Cocaine Screen NEG Urine Cannabinoids Screen NEG Diagnosis Primary Impression: Major depressive disorder, recurrent episode, moderate with anxious distress Ruled Out: Suicidal ideation Psychiatrically Cleared: Yes Referrals: [facility] (Out patient) call for appointment Departure Forms: Tests/Procedures Patient Instructions: General Instructions, Stress (ED) Med/ Other Pt Specific Info: No Change to Meds Disposition: 01 DISCHARGE HOME Condition: Stable Holly Shine December 12, 2016 12:06
== END 2016-12-12 12:24 | disposition home or self-care (01) ==
LOC: NEPE 14:52 → NEPJ 12-12 12:24
DX: F33.1 Major depressive disorder, recurrent, moderate (principal); E11.9 Type 2 diabetes mellitus without complications; F17.200 Nicotine dependence, unspecified, uncomplicated; Z79.4 Long term (current) use of insulin; Z79.84 Long term (current) use of oral hypoglycemic drugs; Z79.899 Other long term (current) drug therapy
CPT/HCPCS: 80307; 99284

== ENCOUNTER 2017-01-14 09:30 | Emergency (ER) | payer OTHER ==
[~2017-01-14] VITALS: Ht 177.8 cm; Wt 80.0 kg
[~2017-01-14 09:30] MED LIST changes: -ABIL5TAB6 PO; +ABIL5TAB7 PO; -ACLI1AER2 INH; -FURO20TA PO; -LOPE2TAB3 PO; -MELO-1 PO; +MOBI15TA PO; -PANT40TA3 PO; -PROM25TA5 PO; -Venlafaxine Xr PO; -ZOFR4TAB3 SL
[2017-01-14 09:43] VITALS: BP 139/75; PULSE 88; RESP 18; TEMP 98.4; O2SAT 99
[2017-01-14] MEDS ORDERED: regular insulin SQ (09:43)
--- NOTE | 2017-01-14 09:54 | PD ---
HPI Chief Complaint: Psychiatric Symptoms Time Seen by Provider: 09:49 Travel History International Travel<30 days: No Contact w/Intl Traveler<30days: No Traveled to known affect area: No History of Present Illness HPI Patient is a 56-year-old male presenting to emergency Department under Valladares acted for suicidal ideations. Patient said multiple text messages to his sister yesterday stating that he no longer wanted to live, begging for help. He also stated in the text messages that he would smoke crack until his heart exploded. Sister emailed authorities the text messages that he sent her. She lives in [place] and was concerned and notified authorities. Patient reports depression, sleeping all day and feeling alienated from his family. He does report a history of crack cocaine use, when asked how long he had been clean for he stated that he didn't know. He denies any previous suicide attempt. He does report chronic back and neck pain but did not elaborate on whether or not it was related to an injury. Patient is a type II diabetic, on insulin, metformin and glipizide. He endorses tobacco use but denies any alcohol use. PFSH Past Medical History Asthma: Yes Anxiety: Yes Depression: Yes Cancer: No Cardiovascular Problems: Yes High Cholesterol: Yes Diabetes: Yes Patient Takes Glucophage: Yes Genitourinary: No Headaches: No Hypertension: No Immune Disorder: No Implanted Vascular Access Dvce: No Musculoskeletal: Yes (chronic back and neck pain) Neurologic: No Reproductive: No Immunizations Current: Yes Thyroid Disease: No Past Surgical History Abdominal Surgery: Yes (hernia) Appendectomy: Yes Social History Alcohol Use: Yes (occasionally) Tobacco Use: Yes (1 ppd) Substance Use: Yes (history of crack cocaine use) Allergies-Medications (Allergen,Severity, Reaction): Coded Allergies: Trazodone (Verified Allergy, Unknown, Swelling, 12/11/16) Reported Meds & Prescriptions Reported Meds & Active Scripts Active Flomax (Tamsulosin HCl) 0.4 Mg Cap 0.4 Mg PO HS Pravachol (Pravastatin) 40 Mg Tab 40 Mg PO HS Oxymorphone ER 12 HR (Oxymorphone HCl) 10 Mg Tab 20 Mg PO Q12H Glucophage (Metformin HCl) 500 Mg Tab 500 Mg PO TIDPC Glipizide 10 Mg Tab 10 Mg PO BIDAC Fenofibrate 145 Mg Tab 145 Mg PO DAILY Reported [regular insulin] 20 SQ DAILY Mobic (Meloxicam) 15 Mg Tab 15 Mg PO DAILY Abilify (Aripiprazole) 5 Mg Tablet 5 Mg PO DAILY Effexor (Venlafaxine HCl) 75 Mg Tab 75 Mg PO DAILY Ventolin Hfa 18 GM Inh (Albuterol Sulfate) 90 Mcg/Act Aer 2 Puff INH Q4H PRN Review of Systems Except as stated in HPI: all other systems reviewed are Neg Psychiatric: Positive: Depression, Suicidal Ideations, Substance Abuse Physical Exam Narrative GENERAL: Well-developed, well-nourished, alert male. Resting comfortably in no acute distress. SKIN: Focused skin assessment warm/dry. HEAD: Atraumatic. Normocephalic. EYES: Pupils equal and round. No scleral icterus. No injection or drainage. ENT: No nasal bleeding or discharge. Mucous membranes pink and moist. NECK: Trachea midline. No JVD. CARDIOVASCULAR: Regular rate and rhythm. No murmur appreciated. RESPIRATORY: No accessory muscle use. Clear to auscultation. Breath sounds equal bilaterally. GASTROINTESTINAL: Abdomen soft, non-tender, nondistended. Hepatic and splenic margins not palpable. MUSCULOSKELETAL: No obvious deformities. No clubbing. No cyanosis. No edema. NEUROLOGICAL: Awake and alert. No obvious cranial nerve deficits. Motor grossly within normal limits. Normal speech. PSYCHIATRIC: Depressed mood with flat affect; insight and judgment normal. Data Data Last Documented VS Vital Signs Date Time Temp Pulse Resp B/P Pulse Ox O2 Delivery O2 Flow Rate FiO2 01/14/17 10:05 88 18 01/14/17 09:43 98.4 139/75 99 Orders Complete Blood Count With Diff (01/14/17 09:47) Comprehensive Metabolic Panel (01/14/17 09:47) Thyroid Stimulating Hormone (01/14/17 09:47) Urinalysis - C+S If Indicated (01/14/17 09:47) Psych Screen (01/14/17 09:47) Drug Screen, Random Urine (01/14/17 09:47) Alcohol (Ethanol) (01/14/17 09:47) Salicylates (Aspirin) (01/14/17 09:47) Tylenol (Acetaminophen) (01/14/17 09:47) Diet 1999 Ada Cons Carb (01/14/17 Breakfast) Blood Glucose (01/14/17 09:47) Hemoglobin (Hgb) A1c (01/14/17 09:47) Labs Laboratory Tests Test 01/14/17 01/14/17 01/14/17 09:17 09:57 12:10 Salicylates Level 4.5 MG/DL White Blood Count 9.0 TH/MM3 Red Blood Count 5.36 MIL/MM3 Hemoglobin 16.0 GM/DL Hematocrit 45.2 % Mean Corpuscular Volume 84.3 FL Mean Corpuscular Hemoglobin 29.8 PG Mean Corpuscular Hemoglobin 35.4 % Concent Red Cell Distribution Width 13.0 % Platelet Count 290 TH/MM3 Mean Platelet Volume 8.1 FL Neutrophils (%) (Auto) 65.1 % Lymphocytes (%) (Auto) 25.5 % Monocytes (%) (Auto) 7.7 % Eosinophils (%) (Auto) 1.5 % Basophils (%) (Auto) 0.2 % Neutrophils # (Auto) 5.9 TH/MM3 Lymphocytes # (Auto) 2.3 TH/MM3 Monocytes # (Auto) 0.7 TH/MM3 Eosinophils # (Auto) 0.1 TH/MM3 Basophils # (Auto) 0.0 TH/MM3 CBC Comment DIFF FINAL Differential Comment Sodium Level 136 MEQ/L Potassium Level 4.0 MEQ/L Chloride Level 101 MEQ/L Carbon Dioxide Level 28.0 MEQ/L Anion Gap 7 MEQ/L Blood Urea Nitrogen 17 MG/DL Creatinine 0.90 MG/DL Estimat Glomerular Filtration 88 ML/MIN Rate Random Glucose 208 MG/DL Calcium Level 8.5 MG/DL Total Bilirubin 0.4 MG/DL Aspartate Amino Transf 8 U/L (AST/SGOT) Alanine Aminotransferase 27 U/L (ALT/SGPT) Alkaline Phosphatase 89 U/L Total Protein 6.8 GM/DL Albumin 3.6 GM/DL Thyroid Stimulating Hormone 1.310 uIU/ML 3rd Gen Acetaminophen Level LESS THAN 2.0 MCG/ML Ethyl Alcohol Level LESS THAN 3 MG/DL Urine Color YELLOW Urine Turbidity CLEAR Urine pH 7.0 Urine Specific [place] 1.010 Urine Protein NEG mg/dL Urine Glucose (UA) TRACE mg/dL Urine Ketones NEG mg/dL Urine Occult Blood NEG Urine Nitrite NEG Urine Bilirubin NEG Urine Urobilinogen LESS THAN 2.0 MG/DL Urine Leukocyte Esterase NEG Urine RBC LESS THAN 1 /hpf Urine WBC 1 /hpf Microscopic Urinalysis Comment CULT NOT INDICATED Urine Opiates Screen NEG Urine Barbiturates Screen NEG Urine Amphetamines Screen NEG Urine Benzodiazepines Screen NEG Urine Cocaine Screen NEG Urine Cannabinoids Screen NEG MDM Medical Decision Making Medical Screen Exam Complete: Yes Emergency Medical Condition: Yes Interpretation(s) Vital Signs Date Time Temp Pulse Resp B/P Pulse Ox O2 Delivery O2 Flow Rate FiO2 01/14/17 09:43 98.4 88 18 139/75 99 Differential Diagnosis Depression versus suicidal ideations versus substance abuse versus psychosis versus other Narrative Course Patient is a 56-year-old male presenting under Valladares act due to to suicidal ideations. Mental health screening discussed with the patient. Psychiatric screen ordered. We'll also check hemoglobin A1c as patient is diabetic and would likely benefit from inpatient care at this time. Patient's vital signs are stable, labs ordered and pending. Diet ordered. CBC, chemistry, urinalysis, urine drug screen, salicylate level, acetaminophen level, alcohol level reviewed in no acute issues have been identified. Patient is medically cleared for psychiatric evaluation at this time. Diagnosis Primary Impression: Medical clearance for psychiatric admission Additional Impressions: Depression Qualified Code: F32.9 - Depression, unspecified depression type Diabetes Qualified Code: E11.9 - Type 2 diabetes mellitus without complication, unspecified long term acute care registered nurse insulin use status Suicidal ideation Condition: Stable Marian Araujo Jan 14, 2017 09:54
[2017-01-14 10:09] LABS: AUTOMATED NEUTROPHIL # 5.9 TH/MM3 (1.8-7.7); BASOPHIL % 0.2 % (0.0-2.0); EOSINOPHIL # 0.1 TH/MM3 (0-0.4); EOSINOPHIL % 1.5 % (0.0-4.0); HEMATOCRIT 45.2 % (39.0-51.0); HEMO FLAGS DIFF FINAL; LYMPH % 25.5 % (9.0-44.0); LYMPHOCYTE # 2.3 TH/MM3 (1.0-4.8); MEAN CELL VOLUME 84.3 FL (80.0-100.0); MEAN CORPUSCULAR HEMOGLOBIN 29.8 PG (27.0-34.0); MEAN CORPUSCULAR HGB CONC 35.4 % (32.0-36.0); MONO % 7.7 % (0.0-8.0); NEUT % 65.1 % (16.0-70.0); PLATELET COUNT 290 TH/MM3 (150-450); RED BLOOD COUNT 5.36 MIL/MM3 (4.50-5.90)
[2017-01-14 10:25] LABS: ALT (GPT) 27 U/L (12-78); ANION GAP 7 MEQ/L (5-15); AST (GOT) 8 U/L (15-37); BLOOD UREA NITROGEN 17 MG/DL (7-18); CHLORIDE 101 MEQ/L (98-107); GLOMERULAR FILTRATION RATE 88 ML/MIN (>89); SODIUM (NA) 136 MEQ/L (136-145)
[2017-01-14 10:35] LABS: ACETAMINOPHEN LESS THAN 2.0 MCG/ML (10.0-30.0); ALKALINE PHOSPHATASE 89 U/L (45-117); TOTAL BILIRUBIN ADULT 0.4 MG/DL (0.2-1.0)
[2017-01-14 12:29] LABS: BLOOD, URINE NEG (NEG); GLUCOSE,URINE TRACE mg/dL (NEG); KETONE, URINE NEG (NEG); NITRITE,URINE NEG (NEG); URINE COLOR YELLOW (YELLW/STRAW)
[2017-01-14 12:31] LABS: AMPHETAMINE, URINE NEG (NEG); BARBITURATES, URINE NEG (NEG); COCAINE, URINE NEG (NEG)
[2017-01-14 12:34] LABS: COMMENT (UR) CULT NOT INDICATED; CULTURE IF INDICATED CULT NOT INDICATED
--- NOTE | 2017-01-14 19:29 | PD ---
History of Present Illness Chief Complaint: Psychiatric Symptoms Time Seen by Provider: 18:45 Travel History International Travel<30 Days: No Contact w/Intl Traveler<30days: No Known affected area: No Legal Status Legal Status: Valladares Act Valladares Act Signed By: Chuy Nash History of Present Illness: 56-year-old male, former drug addict, admitted under a Valladares act for repeatedly threatening suicide to his sister. This physician read the patient's multiple text messages, indicating he no longer wished to live if he did not receive help from her. Patient was distressed when initially seen by this physician but did calm down and provided information. Apparently he was feeling distraught due to financial difficulties. He has not been using alcohol or drugs recently and his toxicology screen was negative. He understands that he "went overboard" and trying to obtain financial assistance from his sister. He is denying any suicidal or homicidal ideation, plan or intent at this time. In fact, his cognition is intact and he demonstrates no psychotic symptoms. He is therefore competent to verbally contract for safety. PFSH Past Medical History Asthma: Yes Anxiety: Yes Depression: Yes Cancer: No Cardiovascular Problems: Yes High Cholesterol: Yes Diabetes: Yes Patient Takes Glucophage: Yes Genitourinary: No Headaches: No Hypertension: No Immune Disorder: No Implanted Vascular Access Dvce: No Musculoskeletal: Yes (chronic back and neck pain) Neurologic: No Reproductive: No Immunizations Current: Yes Thyroid Disease: No Past Surgical History Abdominal Surgery: Yes (hernia) Appendectomy: Yes Psychiatric History Psychiatric History Hx Psychiatric Treatment: Hx: depression/ anxiety History of Inpatient Treatment: Yes Guns or firearms in home: No Social History Hx Alcohol Use: Yes (occasionally) Hx Tobacco Use: Yes (1 ppd) Hx Substance Use: No Substance Use Type: Nicotine/Cigarettes Other Substances Used: pack a day Hx of Substance Use Treatment: No Allergies-Medications (Allergen,Severity, Reaction): Coded Allergies: Trazodone (Verified Allergy, Unknown, Swelling, 12/11/16) Reported Meds & Prescriptions Reported Meds & Active Scripts Active Flomax (Tamsulosin HCl) 0.4 Mg Cap 0.4 Mg PO HS Pravachol (Pravastatin) 40 Mg Tab 40 Mg PO HS Oxymorphone ER 12 HR (Oxymorphone HCl) 10 Mg Tab 20 Mg PO Q12H Glucophage (Metformin HCl) 500 Mg Tab 500 Mg PO TIDPC Glipizide 10 Mg Tab 10 Mg PO BIDAC Fenofibrate 145 Mg Tab 145 Mg PO DAILY Reported [regular insulin] 20 SQ DAILY Mobic (Meloxicam) 15 Mg Tab 15 Mg PO DAILY Abilify (Aripiprazole) 5 Mg Tablet 5 Mg PO DAILY Effexor (Venlafaxine HCl) 75 Mg Tab 75 Mg PO DAILY Ventolin Hfa 18 GM Inh (Albuterol Sulfate) 90 Mcg/Act Aer 2 Puff INH Q4H PRN Review of Systems Except as stated in HPI: all other systems reviewed are Neg Exam Alert: Yes Vincent: Person, Place, Date, Situation Mood: Anxious, Calm Affect: Appropriate Speech: Clear, Logical Eye Contact: Normal Memory Intact: Immediate, Recent, Remote Insight/Judgement Adequate MDM Medical Decision Making Medical Record Reviewed: Yes Assessment/Plan This is a 56-year-old man brought in under a Valladares act for suicidal ideation and threats. This physician spoke to the patient's nurse repeatedly regarding his behavior and interviewed the patient separately. The patient is no longer expressing any suicidal or homicidal ideation, plan or intent. He does acknowledge that his text messages were designed to obtain money from his sister , for financial reasons. He does not actually exhibit objective significant symptoms of major depressive disorder. 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 At this time , however, the patient does not meet criteria for Valladares act or inpatient psychiatric hospitalization. This physician feels he can be treated on an outpatient basis should he wish to do so. Finally, this physician feels the patient's history of diabetes and vacillating blood sugars contributes to his emotional lability. Orders Complete Blood Count With Diff (01/14/17 09:47) Comprehensive Metabolic Panel (01/14/17 09:47) Thyroid Stimulating Hormone (01/14/17 09:47) Urinalysis - C+S If Indicated (01/14/17 09:47) Psych Screen (01/14/17 09:47) Drug Screen, Random Urine (01/14/17 09:47) Alcohol (Ethanol) (01/14/17 09:47) Salicylates (Aspirin) (01/14/17 09:47) Tylenol (Acetaminophen) (01/14/17 09:47) Diet 1999 Ada Cons Carb (01/14/17 Breakfast) Blood Glucose (01/14/17 09:47) Hemoglobin (Hgb) A1c (01/14/17 09:47) Results Vital Signs Date Time Temp Pulse Resp B/P Pulse Ox O2 Delivery O2 Flow Rate FiO2 01/14/17 10:05 88 18 01/14/17 09:43 98.4 88 18 139/75 99 Laboratory Tests Test 01/14/17 01/14/17 01/14/17 09:17 09:57 12:10 Salicylates Level 4.5 White Blood Count 9.0 Red Blood Count 5.36 Hemoglobin 16.0 Hematocrit 45.2 Mean Corpuscular Volume 84.3 Mean Corpuscular Hemoglobin 29.8 Mean Corpuscular Hemoglobin 35.4 Concent Red Cell Distribution Width 13.0 Platelet Count 290 Mean Platelet Volume 8.1 Neutrophils (%) (Auto) 65.1 Lymphocytes (%) (Auto) 25.5 Monocytes (%) (Auto) 7.7 Eosinophils (%) (Auto) 1.5 Basophils (%) (Auto) 0.2 Neutrophils # (Auto) 5.9 Lymphocytes # (Auto) 2.3 Monocytes # (Auto) 0.7 Eosinophils # (Auto) 0.1 Basophils # (Auto) 0.0 CBC Comment DIFF FINAL Differential Comment Sodium Level 136 Potassium Level 4.0 Chloride Level 101 Carbon Dioxide Level 28.0 Anion Gap 7 Blood Urea Nitrogen 17 Creatinine 0.90 Estimat Glomerular Filtration 88 Rate Random Glucose 208 Calcium Level 8.5 Total Bilirubin 0.4 Aspartate Amino Transf 8 (AST/SGOT) Alanine Aminotransferase 27 (ALT/SGPT) Alkaline Phosphatase 89 Total Protein 6.8 Albumin 3.6 Thyroid Stimulating Hormone 1.310 3rd Gen Acetaminophen Level LESS THAN 2.0 Ethyl Alcohol Level LESS THAN 3 Urine Color YELLOW Urine Turbidity CLEAR Urine pH 7.0 Urine Specific Winter 1.010 Urine Protein NEG Urine Glucose (UA) TRACE Urine Ketones NEG Urine Occult Blood NEG Urine Nitrite NEG Urine Bilirubin NEG Urine Urobilinogen LESS THAN 2.0 Urine Leukocyte Esterase NEG Urine RBC LESS THAN 1 Urine WBC 1 Microscopic Urinalysis Comment CULT NOT INDICATED Urine Opiates Screen NEG Urine Barbiturates Screen NEG Urine Amphetamines Screen NEG Urine Benzodiazepines Screen NEG Urine Cocaine Screen NEG Urine Cannabinoids Screen NEG Diagnosis Primary Impression: Adjustment disorder with mixed disturbance of emotions and conduct Additional Impression: Diabetes Departure Forms: Tests/Procedures Patient Instructions: General Instructions, Depression (ED), Suicide Prevention for Adults (ED) Additional Instructions: PLEASE RETURN TO ED IF SYMPTOMS REAPPEAR PLEASE CALL LAW ENFORCEMENT IF SUICIDAL IDEATION RETURNS CALL OUTPATIENT PSYCHIATRIST FOR MEDICATION ADJUSTMENT Disposition: 01 DISCHARGE HOME Condition: Stable Problem Qualifiers Additional Impression: Diabetes Qualified Code: E11.9 - Type 2 diabetes mellitus without complication, unspecified oil heaterman insulin use status Harrison Munson MD Jan 14, 2017 19:29
[2017-01-15 14:33] LABS: HEMOGLOBIN A1a 1.4 %; HEMOGLOBIN A1b 2.5 %; HEMOGLOBIN Ao 80.6 %; HEMOGLOBIN LA1C 2.1 %; HEMOGLOBIN P3 4.4 %
== END 2017-01-14 18:55 | disposition home or self-care (01) ==
LOC: NEPD 09:30 → NEPJ 18:55
DX: Z02.89 Encounter for other administrative examinations (principal); F32.9 Major depressive disorder, single episode, unspecified; F43.25 Adjustment disorder with mixed disturbance of emotions and conduct; E11.9 Type 2 diabetes mellitus without complications; R45.851 Suicidal ideations; E78.00 Pure hypercholesterolemia, unspecified; F17.200 Nicotine dependence, unspecified, uncomplicated; Z79.4 Long term (current) use of insulin; Z79.899 Other long term (current) drug therapy; Z87.39 Personal history of other diseases of the musculoskeletal system and connective tissue; Z87.09 Personal history of other diseases of the respiratory system; Z86.59 Personal history of other mental and behavioral disorders; Z86.79 Personal history of other diseases of the circulatory system
CPT/HCPCS: 80053; 80307; 81001; 83036; 84443; 85025; 99284

== ENCOUNTER 2017-01-15 16:26 | Observation (INO) | payer OTHER ==
[2017-01-15] VITALS (8 sets, daily range): BP systolic 100–127; BP diastolic 63–79; PULSE 66–86; RESP 17–20; TEMP 97.9–98.3; O2SAT 95–97
[~2017-01-15] VITALS: Ht 175.3 cm; Wt 85.0 kg
[~2017-01-15 16:26] MED LIST changes: -INSU100V SQ; +regular insulin SQ
[2017-01-15] MEDS ORDERED: SODIUM CHLORIDE 0.9% FLUSH 10 ML FLUSH IVF PRN (16:45)
[2017-01-15] MEDS ORDERED: NITROGLYCERIN 0.4 MG SL 25 TABS/BTL SL ONE (16:45)
--- NOTE | 2017-01-15 17:19 | RADRPT ---
EXAM DATE/TIME: 01/15/2017 16:45 [facility] COMPARISON: No previous studies available for comparison. INDICATIONS : Chest pain. MEDICAL HISTORY : None. SURGICAL HISTORY : None. ENCOUNTER: Initial ACUITY: 1 day PAIN SCORE: 5/10 LOCATION: Bilateral chest FINDINGS: The heart size is normal. There is increased density at the right upper chest in the region of the fi rst costochondral junction. It's uncertain if this is related o a bony density or underlying pulmonar y process. The lungs are otherwise clear. No effusion is seen. CONCLUSION: Focal density in the right upper chest. This could relate to prominent first costochondral junction o r an underlying pulmonary process. This can be further evaluatedsome point within PA and apical lordo tic chest x-ray. Ronaldo Cantrell MD on January 15, 2017 at 17:14 Board Certified Radiologist. This report was verified electronically.
[2017-01-15 17:23] LABS: AUTOMATED NEUTROPHIL # 7.5 TH/MM3 (1.8-7.7); BASOPHIL % 0.3 % (0.0-2.0); EOSINOPHIL % 0.3 % (0.0-4.0); HEMATOCRIT 43.4 % (39.0-51.0); HEMO FLAGS DIFF FINAL; LYMPH % 19.3 % (9.0-44.0); MEAN CELL VOLUME 85.3 FL (80.0-100.0); MEAN CORPUSCULAR HEMOGLOBIN 30.3 PG (27.0-34.0); MEAN CORPUSCULAR HGB CONC 35.5 % (32.0-36.0); MONO % 6.4 % (0.0-8.0); NEUT % 73.7 % (16.0-70.0); PLATELET COUNT 273 TH/MM3 (150-450); RED BLOOD COUNT 5.09 MIL/MM3 (4.50-5.90); RED CELL DISTRIBUTION WIDTH 12.9 % (11.6-17.2); WHITE BLOOD COUNT 10.2 TH/MM3 (4.0-11.0)
[2017-01-15] MEDS ORDERED: ALPRAZolam 1 MG TAB PO ONE ×2 (17:30→18:00)
[2017-01-15 17:44] LABS: ALKALINE PHOSPHATASE 87 U/L (45-117); ALT (GPT) 27 U/L (12-78); ANION GAP 11 MEQ/L (5-15); AST (GOT) 16 U/L (15-37); BICARBONATE 22.5 MEQ/L (21.0-32.0); BLOOD UREA NITROGEN 16 MG/DL (7-18); CHLORIDE 100 MEQ/L (98-107); GLOMERULAR FILTRATION RATE 90 ML/MIN (>89); SODIUM (NA) 133 MEQ/L (136-145); TOTAL BILIRUBIN ADULT 0.4 MG/DL (0.2-1.0)
--- NOTE | 2017-01-15 18:22 | PD ---
HPI Chief Complaint: Chest Pain Time Seen by Provider: 16:38 Travel History International Travel<30 days: No Contact w/Intl Traveler<30days: No Traveled to known affect area: No History of Present Illness HPI This is a 56-year-old male who presents the emergency department with one hour of chest pressure in the left side of his chest, constant, moderate severity with no associated nausea, or diaphoresis. He has had some shortness of breath but denies any palpitations. He was just seen here yesterday in the emergency department for depression. He has a history of diabetes and smoking. He has a remote history of crack cocaine use. He denies any recent use. PFSH Past Medical History Asthma: Yes Anxiety: Yes Depression: Yes Cancer: No Cardiovascular Problems: Yes High Cholesterol: Yes Diabetes: Yes Patient Takes Glucophage: Yes (01/15/17 0900) Diminished Hearing: No Genitourinary: No Headaches: No Hypertension: No Immune Disorder: No Implanted Vascular Access Dvce: No Musculoskeletal: Yes (chronic back and neck pain) Neurologic: No Reproductive: No Immunizations Current: Yes Thyroid Disease: No Tetanus Vaccination: Unknown Influenza Vaccination: No ?: Not Past Surgical History Abdominal Surgery: Yes (hernia) Appendectomy: Yes Other Surgery: Yes (hernia repair) Social History Alcohol Use: Yes (occasionally) Tobacco Use: Yes (1 ppd) Substance Use: No Allergies-Medications (Allergen,Severity, Reaction): Coded Allergies: Trazodone (Verified Allergy, Unknown, Swelling, 12/11/16) Reported Meds & Prescriptions Reported Meds & Active Scripts Active Flomax (Tamsulosin HCl) 0.4 Mg Cap 0.4 Mg PO HS Pravachol (Pravastatin) 40 Mg Tab 40 Mg PO HS Oxymorphone ER 12 HR (Oxymorphone HCl) 10 Mg Tab 20 Mg PO Q12H Glucophage (Metformin HCl) 500 Mg Tab 500 Mg PO TIDPC Glipizide 10 Mg Tab 10 Mg PO BIDAC Fenofibrate 145 Mg Tab 145 Mg PO DAILY Reported [regular insulin] 20 SQ DAILY Mobic (Meloxicam) 15 Mg Tab 15 Mg PO DAILY Effexor (Venlafaxine HCl) 75 Mg Tab 75 Mg PO DAILY Ventolin Hfa 18 GM Inh (Albuterol Sulfate) 90 Mcg/Act Aer 2 Puff INH Q4H PRN Review of Systems Except as stated in HPI: all other systems reviewed are Neg Physical Exam Narrative GENERAL:Well appearing, no acute distress SKIN: Focused skin assessment warm and dry. HEAD: Atraumatic. Normocephalic. EYES: Pupils equal and round. No injection or drainage. ENT: Moist mucous membranes NECK: Trachea midline. CARDIOVASCULAR: Regular rate and rhythm. No murmur appreciated. RESPIRATORY: Clear to auscultation. Breath sounds equal bilaterally. GASTROINTESTINAL: Abdomen soft, non-tender, nondistended. MUSCULOSKELETAL: No obvious deformities. NEUROLOGICAL: Awake and alert. No obvious cranial nerve deficits. Moving all extremities. PSYCHIATRIC: Appropriate mood and affect; insight and judgment normal. Data Data Last Documented VS Vital Signs Date Time Temp Pulse Resp B/P Pulse Ox O2 Delivery O2 Flow Rate FiO2 01/15/17 17:30 85 17 123/72 95 Room Air 01/15/17 16:33 98.0 Orders Electrocardiogram (01/15/17 ) Electrocardiogram (01/15/17 16:43) Complete Blood Count With Diff (01/15/17 16:43) Comprehensive Metabolic Panel (01/15/17 16:43) Troponin I (01/15/17 16:43) Chest, Single Ap (01/15/17 16:43) Ecg Monitoring (01/15/17 16:43) Bilateral Bp Monitoring (01/15/17 16:43) Iv Access Insert/Monitor (01/15/17 16:43) Oximetry (01/15/17 16:43) Oxygen Administration (01/15/17 16:43) Sodium Chloride 0.9% Flush (Ns Flush) (01/15/17 16:45) Nitroglycerin Sl (Nitrostat Sl) (01/15/17 16:45) Alprazolam (Xanax) (01/15/17 17:30) Chest, Pa&Lat W/Apical Lord (01/15/17 ) Alprazolam (Xanax) (01/15/17 18:00) Admit Order (Ed Use Only) (01/15/17 17:57) Labs Laboratory Tests Test 01/15/17 16:57 White Blood Count 10.2 TH/MM3 Red Blood Count 5.09 MIL/MM3 Hemoglobin 15.4 GM/DL Hematocrit 43.4 % Mean Corpuscular Volume 85.3 FL Mean Corpuscular Hemoglobin 30.3 PG Mean Corpuscular Hemoglobin 35.5 % Concent Red Cell Distribution Width 12.9 % Platelet Count 273 TH/MM3 Mean Platelet Volume 8.5 FL Neutrophils (%) (Auto) 73.7 % Lymphocytes (%) (Auto) 19.3 % Monocytes (%) (Auto) 6.4 % Eosinophils (%) (Auto) 0.3 % Basophils (%) (Auto) 0.3 % Neutrophils # (Auto) 7.5 TH/MM3 Lymphocytes # (Auto) 2.0 TH/MM3 Monocytes # (Auto) 0.7 TH/MM3 Eosinophils # (Auto) 0.0 TH/MM3 Basophils # (Auto) 0.0 TH/MM3 CBC Comment DIFF FINAL Differential Comment Sodium Level 133 MEQ/L Potassium Level 4.0 MEQ/L Chloride Level 100 MEQ/L Carbon Dioxide Level 22.5 MEQ/L Anion Gap 11 MEQ/L Blood Urea Nitrogen 16 MG/DL Creatinine 0.88 MG/DL Estimat Glomerular Filtration 90 ML/MIN Rate Random Glucose 219 MG/DL Calcium Level 8.4 MG/DL Total Bilirubin 0.4 MG/DL Aspartate Amino Transf 16 U/L (AST/SGOT) Alanine Aminotransferase 27 U/L (ALT/SGPT) Alkaline Phosphatase 87 U/L Troponin I LESS THAN 0.02 NG/ML Total Protein 6.5 GM/DL Albumin 3.6 GM/DL MDM Medical Decision Making Medical Screen Exam Complete: Yes Emergency Medical Condition: Yes Medical Record Reviewed: Yes (patient was seen here yesterday in the emergency department in the setting of depression.) Interpretation(s) EKG: Normal sinus rhythm, left axis deviation, no ST changes No leukocytosis Mild hyponatremia Mild hyperglycemia Troponin is 0.02 Last 24 hours Impressions Chest X-Ray 01/15/17 1643 Signed Impressions: Service Date/Time: Sunday, January 15, 2017 16:45 - CONCLUSION: Focal density in the right upper chest. This could relate to prominent first costochondral junction or an underlying pulmonary process. This can be further evaluatedsome point within PA and apical lordotic chest x-ray. Ronaldo Cantrell MD Differential Diagnosis Acute coronary syndrome, pulmonary embolism, pneumonia, costochondritis, depression Narrative Course This is a 56-year-old male who presents to the emergency department with chest discomfort that started 1 hour prior to arrival. He's never had chest pain like this before. He is a diabetic and also has a significant smoking history. EKG is nonischemic. He was given aspirin with EMS and he received nitroglycerin here in the emergency department. He is also very anxious and received Xanax. Labs were obtained which are reassuring including a normal troponin. Chest x-ray demonstrates a possible focal density in the right upper chest. PA and apical chest x-ray were ordered and will be followed. Patient will be admitted to the chest pain center for serial cardiac enzymes and risk stratification. Diagnosis Primary Impression: Chest pain Qualified Code: R07.9 - Chest pain, unspecified type Admitting Information Admitting Physician Requests: Paty Ruff MD Jan 15, 2017 18:22
[2017-01-15] MEDS ORDERED: SODIUM CHLORIDE 0.9% FLUSH 10 ML FLUSH PRN (18:30)
[2017-01-15] MEDS ORDERED: ALPRAZolam 1 MG TAB PO PRN (18:30)
--- NOTE | 2017-01-15 18:55 | RADRPT ---
EXAM DATE/TIME: 01/15/2017 18:14 [facility] COMPARISON: No previous studies available for comparison. INDICATIONS : Right Apical abnormality as seen on prior AP chest X-Ray. MEDICAL HISTORY : None. SURGICAL HISTORY : None. ENCOUNTER: Subsequent ACUITY: 1 day PAIN SCORE: 1/10 LOCATION: Bilateral chest FINDINGS: The density in the right upper chest appears to parallel the first costochondral junction on all imag es. CONCLUSION: Asymmetric hypertrophic change at the right first costochondral junction. Ronaldo Cantrell MD on January 15, 2017 at 18:49 Board Certified Radiologist. This report was verified electronically.
[2017-01-15] MEDS: SODIUM CHLORIDE 0.9% FLUSH 10 ML FLUSH IV FLUSH SCH (20:24)
[2017-01-15 21:00] LABS: CREATINE KINASE 51 U/L (39-308)
[2017-01-15] MEDS ORDERED: ACETAMINOPHEN 500 MG CPLT PO PRN (23:45)
[2017-01-15] MEDS ORDERED: TEMAZEPAM 15 MG CAP PO PRN (23:45)
[2017-01-15] MEDS ORDERED: MORPHINE SULFATE 4 MG/ML INJ IV PRN (23:45)
[2017-01-15] MEDS ORDERED: PANTOPRAZOLE SOD 20 MG DELAYED RELEASE TAB PO ONE (23:45)
[2017-01-15] MEDS ORDERED: PANTOPRAZOLE SOD 20 MG DELAYED RELEASE TAB PO SCH (23:55)
[2017-01-16 01:10] LABS: CREATINE KINASE 45 U/L (39-308)
[2017-01-16 04:00] VITALS: PULSE 69
[2017-01-16 04:15] VITALS: BP 99/65; PULSE 82; RESP 20; TEMP 97.8; O2SAT 97
[2017-01-16] MEDS ORDERED: glipiZIDE 10 MG TAB PO SCH (07:00)
[2017-01-16 07:20] VITALS: PULSE 66
[2017-01-16 08:05] VITALS: BP 103/60; PULSE 72; RESP 16; TEMP 97.3; O2SAT 95
[2017-01-16] MEDS ORDERED: PANTOPRAZOLE SOD 20 MG DELAYED RELEASE TAB PO SCH (09:00)
--- NOTE | 2017-01-16 09:11 | HHI.HP ---
[facility] Primary Care Physician Dr. Fagan Chief Complaint Chest pain History of Present Illness 56-year-old male with history of diabetes, hyperlipidemia, and current smoker presents to emergency room for further evaluation of chest pain. Onset yesterday afternoon while watching TV. Location substernal. Characterized as pressure. No radiation of pain. Duration lasted approximately 2 hours. No associated symptoms of nausea, vomiting, diaphoresis, or shortness of breath. Precipitating factors he states may be due to stress. No known relieving factors. No recent illness, cough, or sputum production. Currently he is chest pain-free. Denies any similar pain in the past. Review of Systems General: No fatigue,weakness, fever, chills, recent illness, or change in appetite. Has been his general state of health. Endorses he was seen in the hospital yesterday for depression but states "I'm fine now." HEENT: No [place], no vision changes, no nasal congestion or drainage, no dysphasia CV: As stated above. Denies any current chest pain or pressure. RESP: No SOB, cough, wheeze, recent URI, or sputum production. History of asthma, GI: No nausea, vomiting, bowel changes, diarrhea, constipation, pain. No unintentional weight gain or weight loss : No dysuria, urgency, or frequency EXT: No lower leg edema, no paraesthesias MS: No discomfort or change in ROM NEURO: No difficulty with balance, LOC, motor/sensory deficits PSYCH: History of major depressive disorder and anxiety. Denies suicidal ideation. Seen yesterday in [place] ER or depression. Endorses situational stress. SKIN: No rashes, no concerning lesions Past Family Social History Allergies: Coded Allergies: Trazodone (Verified Allergy, Unknown, Swelling, 12/11/16) Past Medical History Diabetes type 2, hyperlipidemia, asthma, major depressive disorder, chronic back and neck pain Past Surgical History Appendectomy, hernia repair Reported Medications Active Flomax (Tamsulosin HCl) 0.4 Mg Cap 0.4 Mg PO HS Pravachol (Pravastatin) 40 Mg Tab 40 Mg PO HS Oxymorphone ER 12 HR (Oxymorphone HCl) 10 Mg Tab 20 Mg PO Q12H Glucophage (Metformin HCl) 500 Mg Tab 500 Mg PO TIDPC Glipizide 10 Mg Tab 10 Mg PO BIDAC Fenofibrate 145 Mg Tab 145 Mg PO DAILY [regular insulin] 20 SQ DAILY Mobic (Meloxicam) 15 Mg Tab 15 Mg PO DAILY Effexor (Venlafaxine HCl) 75 Mg Tab 75 Mg PO DAILY Ventolin Hfa 18 GM Inh (Albuterol Sulfate) 90 Mcg/Act Aer 2 Puff INH Q4H PRN Active Ordered Medications Current Medications Medications (Trade) Dose Ordered Sig/Luca Route Start Time Stop Time Status Last Admin (Xanax) 1 mg Q8HR PRN PO 01/15/17 18:30 (Glucotrol) 10 mg BIDAC PO 01/16/17 07:00 (Glucophage) 500 mg TIDPC PO 01/16/17 09:30 (Restoril) 15 mg HS PRN PO 01/15/17 23:45 01/16/17 00:05 (Morphine Inj) 4 mg Q4H PRN IV 01/15/17 23:45 (Tylenol) 500 mg Q4H PRN PO 01/15/17 23:45 (Protonix) 20 mg DAILY PO 01/16/17 09:00 Family History Noncontributory for early onset cardiovascular disease Social History Known diabetes and hyperlipidemia. No known hypertension or personal coronary artery disease. Lifelong smoker 1 pack daily. Denies any alcohol or illegal drug use. Past cardiac testing No recent stress testing. Endorses years ago had a exercise stress test is unremarkable. Physical Exam Vital Signs Vital Signs Date Time Temp Pulse Resp B/P Pulse Ox O2 Delivery O2 Flow Rate FiO2 01/16/17 08:05 97.3 72 16 103/60 95 01/16/17 04:15 97.8 82 20 99/65 97 01/16/17 04:00 69 01/15/17 23:42 97.9 86 20 120/68 96 01/15/17 23:35 81 01/15/17 21:00 85 01/15/17 19:59 98.3 66 20 100/63 97 01/15/17 18:17 78 19 122/75 96 Room Air 01/15/17 17:30 85 17 123/72 95 Room Air 01/15/17 16:54 95 Room Air 01/15/17 16:33 98.0 79 17 127/79 97 Physical Exam GENERAL: Alert WN, WD, NAD, pleasant, male who appears older than stated age HEAD: NC, AT NECK: Supple, no masses, trachea midline CV: RRR, without murmur, rub, gallop, no JVD, S1-S2 no S3-S4. No carotid bruits. RESP: Clear lungs throughout bilateral, no crackles, wheeze, rhonchi, symmetrical chest rise, nonlabored, able to speak in full sentences ABD: Soft, NT, ND, no masses, positive bowel tones EXT: Pulses +24, no dependent edema MS: Normal tone 4 extremities, nontender, no obvious deformities, full range of motion NEURO: CN II through CN XII grossly intact, motor strength 5/5, gait WNL PSYCH: A+O 3, flat affect, appropriate speech, appropriate mood and affect, insight and judgment SKIN: Normal turgor, normal texture, no lesions, no rashes, brisk cap refill, even hair distribution Laboratory Laboratory Tests Test 01/15/17 01/15/17 01/16/17 16:57 20:10 00:15 White Blood Count 10.2 Red Blood Count 5.09 Hemoglobin 15.4 Hematocrit 43.4 Mean Corpuscular Volume 85.3 Mean Corpuscular Hemoglobin 30.3 Mean Corpuscular Hemoglobin 35.5 Concent Red Cell Distribution Width 12.9 Platelet Count 273 Mean Platelet Volume 8.5 Neutrophils (%) (Auto) 73.7 Lymphocytes (%) (Auto) 19.3 Monocytes (%) (Auto) 6.4 Eosinophils (%) (Auto) 0.3 Basophils (%) (Auto) 0.3 Neutrophils # (Auto) 7.5 Lymphocytes # (Auto) 2.0 Monocytes # (Auto) 0.7 Eosinophils # (Auto) 0.0 Basophils # (Auto) 0.0 CBC Comment DIFF FINAL Differential Comment Sodium Level 133 Potassium Level 4.0 Chloride Level 100 Carbon Dioxide Level 22.5 Anion Gap 11 Blood Urea Nitrogen 16 Creatinine 0.88 Estimat Glomerular Filtration 90 Rate Random Glucose 219 Calcium Level 8.4 Total Bilirubin 0.4 Aspartate Amino Transf 16 (AST/SGOT) Alanine Aminotransferase 27 (ALT/SGPT) Alkaline Phosphatase 87 Troponin I LESS THAN 0.02 LESS THAN 0.02 LESS THAN 0.02 Total Protein 6.5 Albumin 3.6 Total Creatine Kinase 51 45 Result Diagram: 01/15/17165601/15/171656 Imaging Last Impressions Myocardial Perfusion Scan Nuc Med 01/16/17 0000 Signed Impressions: Service Date/Time: Monday, January 16, 2017 09:59 - CONCLUSION: 1. Unremarkable myocardial perfusion scan. RISK CATEGORY: Low (<1%% Annual Mortality Rate ) Dewey Nunez MD Chest X-Ray 01/15/17 1643 Signed Impressions: Service Date/Time: Sunday, January 15, 2017 16:45 - CONCLUSION: Focal density in the right upper chest. This could relate to prominent first costochondral junction or an underlying pulmonary process. This can be further evaluatedsome point within PA and apical lordotic chest x-ray. Ronaldo Cantrell MD Apical Lordotic X-Ray 01/15/17 0000 Signed Impressions: Service Date/Time: Sunday, January 15, 2017 18:14 - CONCLUSION: Asymmetric hypertrophic change at the right first costochondral junction. Ronaldo Cantrell MD Course EKG Normal sinus rhythm, left axis deviation, incomplete right bundle branch block, no ST changes Assessment and Plan Assessment and Plan #1 Chest painadmitted to chest pain center. Ruled out with 3 sets of EKGs, serial cardiac enzymes, and monitored overnight. Seen and evaluated by Dr. Dewey Holloway. Chemical stress test this a.m. If unremarkable, discharged this afternoon. Patient agreeable to plan of care. #2 Diabetescontinue metformin #3 AnxietyXanax 1 mg when necessary #4 Tobacco usecounseled on health risks of tobacco use. Encouraged to quit smoking. No changes will be made upon discharge of home medication regimen. Follow-up with PCP. Miryam Castillo Jan 16, 2017 09:11
[2017-01-16] MEDS: metFORMIN HCL 500 MG TAB PO SCH ×2 (09:26→13:30)
[2017-01-16] MEDS: SODIUM CHLORIDE 0.9% FLUSH 10 ML FLUSH IV FLUSH SCH (09:26)
[2017-01-16] MEDS ORDERED: REGADENOSON INJ 0.4 MG/5 ML SYR ONE (11:01)
--- NOTE | 2017-01-16 12:07 | RADRPT ---
EXAM DATE/TIME: 01/16/2017 09:59 [place] COMPARISON: No previous studies available for comparison. INDICATIONS : Chest pain and dyspnea. Angina. DOSE: 27.3 mCi Tc99m Myoview at stress. 8.8 mCi Tc99m Myoview at rest. 0.4 mg Lexiscan STRESS SYMPTOMS: Weird feeling. EJECTION FRACTION: 60% MEDICAL HISTORY : Diabetes mellitus type 2. Smoker. Polysubstance abuse. SURGICAL HISTORY : Umbilical hernia repair. Appendectomy. ENCOUNTER: Initial ACUITY: 1 day PAIN SCALE: 0/10 LOCATION: Left chest TECHNIQUE: The patient underwent pharmacologic stress with infusion of prescribed dose. Continuous ECG tracing was monitored during stress. Gated SPECT imaging was performed after stress and conventional SPECT i maging was performed at rest. The examination was performed on a SPECT/CT scanner, both attenuation and non-corrected datasets were reviewed. FINDINGS: DISTRIBUTION: The maximum perfused segment at stress is in the lateral wall. PERFUSION STUDY: The pattern of perfusion at stress is within normal limits. GATED STUDY: There is intact wall motion and thickening without hypokinetic or dyskinetic segments. CONCLUSION: 1. Unremarkable myocardial perfusion scan. RISK CATEGORY: Low (<1% Annual Mortality Rate) Dewey Nunez MD on January 16, 2017 at 12:01 Board Certified Radiologist. This report was verified electronically.
--- NOTE | 2017-01-16 12:23 | HHI.DCPOC ---
Discharge Care Plan Diagnosis: (1) Atypical chest pain (2) Tobacco abuse Goals to Promote Your Health * To prevent worsening of your condition and complications * To maintain your health at the optimal level Directions to Meet Your Goals Take your medications as prescribed Follow your dietary instruction Follow activity as directed Keep your appointments as scheduled Take your immunizations and boosters as scheduled If your symptoms worsen call your PCP, if no PCP go to Urgent Care Center or Emergency Room Smoking is Dangerous to Your Health. Avoid second hand smoke Call the 24-hour hour crisis hotline for domestic abuse at Miryam Castillo Jan 16, 2017 12:23
[2017-01-16 12:38] VITALS: BP 114/66; PULSE 74; RESP 17; TEMP 97.9; O2SAT 96
[2017-01-17] MEDS ORDERED: XANA2TAB2 PO (15:39)
[2017-01-17] MEDS ORDERED: XANA1TAB2 PO (16:23)
--- NOTE | 2017-01-18 07:31 | EKG ---
Date Performed: 01/16/2017 Time Performed: 00:09:36 PTAGE: 56 years EKG: Sinus rhythm INCOMPLETE RIGHT BUNDLE BRANCH BLOCK LEFT ANTERIOR FASCICULAR BLOCK ABNORMAL ECG PREVIOUS TRACING : 01/15/2017 17.48 Since previous tracing, no significant change noted DOCTOR: Dewey Holloway Interpretating Date/Time 01/18/2017 07:28:54
--- NOTE | 2017-01-18 07:32 | EKG ---
Date Performed: 01/15/2017 Time Performed: 17:48:29 PTAGE: 56 years EKG: Sinus rhythm MARKED LEFT AXIS DEVIATION INCOMPLETE RIGHT BUNDLE BRANCH BLOCK ABNORMAL ECG NO PREVIOUS TRACING DOCTOR: Dewey Holloway Interpretating Date/Time 01/18/2017 07:29:18
--- NOTE | 2017-01-18 07:32 | EKG ---
Date Performed: 01/15/2017 Time Performed: 16:35:17 PTAGE: 56 years EKG: Sinus rhythm MARKED LEFT AXIS DEVIATION INCOMPLETE RIGHT BUNDLE BRANCH BLOCK ABNORMAL ECG PREVIOUS TRACING : 04/15/2016 22.53 Since previous tracing, no significant change noted DOCTOR: Dewey Holloway Interpretating Date/Time 01/18/2017 07:29:30
--- NOTE | 2017-01-18 07:36 | TR ---
Date Performed: 01/16/2017 Time Performed: 11:04:48 DOCTOR: Dewey Holloway DRUG LIST: CLINICAL HISTORY: REASON FOR TEST: REASON FOR ENDING: OBSERVATION: CONCLUSION: Lexiscan stress test was performed under standard four minute protocol. Radionuclid e was injected one minute prior to ending the test. No electrocardiographic abormalities were present to suggest ischemia. Nuclear imaging and interpretation are pending. COMMENTS:
== END 2017-01-16 15:25 | disposition home or self-care (01) ==
LOC: NEPE 16:26 → NEDA 17:59 → NEPGCP 19:54
PROVIDERS: ADMIT Internal Medicine Interventional Cardiology; ATTEND Internal Medicine Interventional Cardiology
DX: R07.89 Other chest pain (principal); E87.1 Hypo-osmolality and hyponatremia; E11.65 Type 2 diabetes mellitus with hyperglycemia; R94.31 Abnormal electrocardiogram [ECG] [EKG]; I44.4 Left anterior fascicular block; R06.02 Shortness of breath; I20.9 Angina pectoris, unspecified; R06.00 Dyspnea, unspecified; R91.8 Other nonspecific abnormal finding of lung field; I45.10 Unspecified right bundle-branch block; E78.5 Hyperlipidemia, unspecified; E78.00 Pure hypercholesterolemia, unspecified; J45.909 Unspecified asthma, uncomplicated; F41.9 Anxiety disorder, unspecified; F32.9 Major depressive disorder, single episode, unspecified; M54.9 Dorsalgia, unspecified; M54.2 Cervicalgia; G89.29 Other chronic pain; F17.200 Nicotine dependence, unspecified, uncomplicated; Z79.899 Other long term (current) drug therapy; Z79.84 Long term (current) use of oral hypoglycemic drugs
CPT/HCPCS: 71010; 71021; 78452; 80053; 82550; 82948; 84484; 85025; 93005; 93017; 99285; A9502; G0378; J2785

== ENCOUNTER 2017-01-17 14:37 | Emergency (ER) | payer OTHER ==
[~2017-01-17] VITALS: Ht 180.3 cm; Wt 85.8 kg
[2017-01-17 14:50] VITALS: BP 122/81; PULSE 95; RESP 16; TEMP 98; O2SAT 95
[2017-01-17] MEDS ORDERED: XANA2TAB2 PO (15:39)
[2017-01-17] MEDS ORDERED: ALPRAZolam 0.5 MG TAB PO ONE (16:15)
[2017-01-17] MEDS ORDERED: ALPRAZolam 1 MG TAB PO ONE (16:15)
[2017-01-17] MEDS ORDERED: XANA1TAB2 PO (16:23)
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
[2017-01-17 16:31] VITALS: BP 136/89; PULSE 80; RESP 16; O2SAT 97
== END 2017-01-17 16:38 | disposition home or self-care (01) ==
LOC: PHED 14:37
DX: F41.9 Anxiety disorder, unspecified (principal); E78.00 Pure hypercholesterolemia, unspecified; E11.9 Type 2 diabetes mellitus without complications; F17.210 Nicotine dependence, cigarettes, uncomplicated; Z76.0 Encounter for issue of repeat prescription
CPT/HCPCS: 99283

== ENCOUNTER 2017-05-26 18:16 | Emergency (ER) | payer OTHER ==
[~2017-05-26] VITALS: Ht 177.8 cm; Wt 85.8 kg
[~2017-05-26 18:16] MED LIST changes: -ABIL5TAB7 PO; +XANA1TAB2 PO; +XANA2TAB2 PO
[2017-05-26 18:19] VITALS: BP 180/89; PULSE 67; RESP 18; TEMP 97.5; O2SAT 98
--- NOTE | 2017-05-26 18:47 | PD ---
HPI Chief Complaint: Dizziness Time Seen by Provider: 18:40 Travel History International Travel<30 days: No Contact w/Intl Traveler<30days: No Traveled to known affect area: No History of Present Illness HPI This patient complains of feeling lightheaded. Duration is 2 hours. Severity is mild to moderate. It's hard for him to explain, he apologizes for being vague. He's had no chest pain or shortness of breath or fever or headache or syncope. He just doesn't feel right. He is an insulin-dependent diabetic, Accu -Chek now is 213. He reports compliance. Denies stroke symptoms. No alleviating factors. No Exacerbating factors. No palpitation PFSH Past Medical History Asthma: Yes Anxiety: Yes Depression: Yes Cancer: No Cardiovascular Problems: Yes High Cholesterol: Yes Diabetes: Yes Diminished Hearing: No Gastrointestinal Disorders: Yes (hernia repair at age 8 ) Genitourinary: No Headaches: No Hypertension: No Immune Disorder: No Implanted Vascular Access Dvce: No Musculoskeletal: Yes (chronic back and neck pain) Neurologic: No Reproductive: No Immunizations Current: Yes Thyroid Disease: No Past Surgical History Abdominal Surgery: Yes (hernia) Appendectomy: Yes Other Surgery: Yes (hernia repair) Social History Alcohol Use: Yes (occasionally) Tobacco Use: Yes (1/2 ppd) Substance Use: No Allergies-Medications (Allergen,Severity, Reaction): Coded Allergies: trazodone (Unverified Allergy, Unknown, Swelling, 05/26/17) Reported Meds & Prescriptions Reported Meds & Active Scripts Active Xanax (Alprazolam) 1 Mg Tab 1 Mg PO Q8H PRN 3 Days Flomax (Tamsulosin HCl) 0.4 Mg Cap 0.4 Mg PO HS Pravachol (Pravastatin) 40 Mg Tab 40 Mg PO HS Oxymorphone ER 12 HR (Oxymorphone HCl) 10 Mg Tab 20 Mg PO Q12H Glucophage (Metformin HCl) 500 Mg Tab 500 Mg PO TIDPC Glipizide 10 Mg Tab 10 Mg PO BIDAC Fenofibrate 145 Mg Tab 145 Mg PO DAILY Reported Xanax (Alprazolam) 2 Mg Tab 2 Mg PO BID PRN [regular insulin] 20 SQ DAILY Mobic (Meloxicam) 15 Mg Tab 15 Mg PO DAILY Effexor (Venlafaxine HCl) 75 Mg Tab 75 Mg PO DAILY Ventolin Hfa 18 GM Inh (Albuterol Sulfate) 90 Mcg/Act Aer 2 Puff INH Q4H PRN Review of Systems General / Constitutional: No: Fever Eyes: No: Visual changes HENT: Positive: Lightheadedness, No: Headaches Cardiovascular: No: Chest Pain or Discomfort Respiratory: No: Shortness of Breath Gastrointestinal: No: Abdominal Pain Genitourinary: No: Dysuria Musculoskeletal: No: Pain Skin: No Rash Neurologic: No: Weakness Psychiatric: No: Depression Endocrine: No: Polydipsia Hematologic/Lymphatic: No: Easy Bruising Physical Exam Narrative GENERAL: Well-nourished, well-developed patient in no apparent distress. SKIN: Focused skin assessment reveals no rash and nodules. Skin is Warm and dry. HEAD: Atraumatic. Normocephalic. EYES: Pupils equal and round. No scleral icterus. No injection or drainage. ENT: No nasal bleeding or discharge. Mucous membranes pink and moist. NECK: Trachea midline. No JVD. CARDIOVASCULAR: Regular rate and rhythm. No murmur appreciated. RESPIRATORY: No accessory muscle use. Clear to auscultation. Breath sounds equal bilaterally. GASTROINTESTINAL: Abdomen soft, non-tender, nondistended. Hepatic and splenic margins not palpable. MUSCULOSKELETAL: No obvious deformities. No clubbing. No cyanosis. No edema. NEUROLOGICAL: Awake and alert. No obvious cranial nerve deficits. Motor grossly within normal limits. Normal speech. PSYCHIATRIC: Appropriate mood and affect; insight and judgment normal. Data Data Last Documented VS Vital Signs Date Time Temp Pulse Resp B/P (MAP) Pulse Ox O2 Delivery O2 Flow Rate FiO2 05/26/17 18:19 97.5 67 18 180/89 (119) 98 Orders Orders Prototype Sewer / Telemetry APOLONIA.Q8H (05/26/17 18:40) Electrocardiogram (05/26/17 ) Iv Access Insert/Monitor (05/26/17 18:40) Blood Glucose (05/26/17 18:40) Complete Blood Count With Diff (05/26/17 18:40) Basic Metabolic Panel (Bmp) (05/26/17 18:40) [facility] Medical Decision Making Medical Screen Exam Complete: Yes Emergency Medical Condition: Yes Medical Record Reviewed: Yes Differential Diagnosis Hyperglycemia, DKA, vasovagal episode, hypertensive urgency Narrative Course I have reviewed the patient's electronic medical record. Patient was seen here January 2017 for anxiety Patient denies feeling anxious or panicky today Etiology is unclear, he is very vague. He is neurologically intact. Accu-Chek 213 and blood pressure 163/84 No symptoms consistent with acute CVA or ACS I've ordered a workup to include EKG and telemetry monitoring and labs studies Case will be checked out to nighttime physician to assist with disposition. Diagnosis Primary Impression: Lightheadedness Additional Impression: Hyperglycemia Piero Jeff MD May 26, 2017 18:47
[2017-05-26 18:55] LABS: AUTOMATED NEUTROPHIL # 8.7 TH/MM3 (1.8-7.7); BASOPHIL # 0.3 TH/MM3 (0-0.2); BASOPHIL % 2.3 % (0.0-2.0); EOSINOPHIL # 0.1 TH/MM3 (0-0.4); EOSINOPHIL % 1.1 % (0.0-4.0); HEMATOCRIT 43.8 % (39.0-51.0); LYMPHOCYTE # 1.7 TH/MM3 (1.0-4.8); MEAN CELL VOLUME 85.2 FL (80.0-100.0); MEAN CORPUSCULAR HGB CONC 34.1 % (32.0-36.0); MONO % 7.1 % (0.0-8.0); NEUT % 74.5 % (16.0-70.0); PLATELET COUNT 281 TH/MM3 (150-450); RED BLOOD COUNT 5.14 MIL/MM3 (4.50-5.90); RED CELL DISTRIBUTION WIDTH 11.9 % (11.6-17.2); WHITE BLOOD COUNT 11.6 TH/MM3 (4.0-11.0)
[2017-05-26 18:58] LABS: HEMO FLAGS DIFF FINAL
[2017-05-26] MEDS ORDERED: SODIUM CHLOR 0.9% 1000 ML INJ 1,000 ML IV ONE (19:00)
[2017-05-26 19:03] LABS: CHLORIDE 100 MEQ/L (98-107); POTASSIUM 3.5 MEQ/L (3.5-5.1); SODIUM (NA) 134 MEQ/L (136-145)
[2017-05-26 19:06] LABS: ANION GAP 7 MEQ/L (5-15); BICARBONATE 27.1 MEQ/L (21.0-32.0); BLOOD UREA NITROGEN 8 MG/DL (7-18)
[2017-05-26 19:09] LABS: GLOMERULAR FILTRATION RATE 96 ML/MIN (>89)
--- NOTE | 2017-05-26 19:26 | PD ---
Data Data Last Documented VS Vital Signs Date Time Temp Pulse Resp B/P (MAP) Pulse Ox O2 Delivery O2 Flow Rate FiO2 05/26/17 18:19 97.5 67 18 180/89 (119) 98 Orders Orders Nickel Operator / Telemetry APOLONIA.Q8H (05/26/17 18:40) Electrocardiogram (05/26/17 ) Iv Access Insert/Monitor (05/26/17 18:40) Blood Glucose (05/26/17 18:40) Complete Blood Count With Diff (05/26/17 18:40) Basic Metabolic Panel (Bmp) (05/26/17 18:40) Sodium Chlor 0.9% 1000 Ml Inj (Ns 1000 M (05/26/17 19:00) Labs Laboratory Tests Test 05/26/17 18:43 White Blood Count 11.6 TH/MM3 Red Blood Count 5.14 MIL/MM3 Hemoglobin 14.9 GM/DL Hematocrit 43.8 % Mean Corpuscular Volume 85.2 FL Mean Corpuscular Hemoglobin 29.0 PG Mean Corpuscular Hemoglobin Concent 34.1 % Red Cell Distribution Width 11.9 % Platelet Count 281 TH/MM3 Mean Platelet Volume 8.4 FL Neutrophils (%) (Auto) 74.5 % Lymphocytes (%) (Auto) 15.0 % Monocytes (%) (Auto) 7.1 % Eosinophils (%) (Auto) 1.1 % Basophils (%) (Auto) 2.3 % Neutrophils # (Auto) 8.7 TH/MM3 Lymphocytes # (Auto) 1.7 TH/MM3 Monocytes # (Auto) 0.8 TH/MM3 Eosinophils # (Auto) 0.1 TH/MM3 Basophils # (Auto) 0.3 TH/MM3 CBC Comment DIFF FINAL Differential Comment Blood Urea Nitrogen 8 MG/DL Creatinine 0.83 MG/DL Random Glucose 220 MG/DL Calcium Level 8.8 MG/DL Sodium Level 134 MEQ/L Potassium Level 3.5 MEQ/L Chloride Level 100 MEQ/L Carbon Dioxide Level 27.1 MEQ/L Anion Gap 7 MEQ/L Estimat Glomerular Filtration Rate 96 ML/MIN [facility] Supervised Visit with TRINY: Yes Interpretation(s) EKG: sinus bradycardia, left axis deviation, no st changes mild leukocytosis 74% neutrophils mild hyperglycemia Differential Diagnosis Dehydration, hyperglycemia, viral syndrome, arrhythmia Narrative Course This is a 57-year-old male who presents to the emergency department with vague symptoms of lightheadedness and not feeling himself. EKG was obtained which is reassuring. Labs were obtained which demonstrates mild hyperglycemia but are otherwise normal. Patient has no chest pain, shortness of breath or other symptoms to suggest an emergent etiology of his presentation. I urged him that if his symptoms worsen over the weekend he should return to the emergency department for reevaluation and he should follow up with his primary care physician on Monday. Diagnosis Primary Impression: Lightheadedness Additional Impression: Hyperglycemia Patient Instructions: General Instructions Additional Instruction: If you develop severe chest pain, shortness of breath, sweating, lightheadedness , dizziness or difficulty breathing return to the emergency department immediately. Followup with your primary care physician in 2-3 days if your symptoms are not resolved. Med/Other Pt SpecificInfo: No Change to Meds Disposition: 01 DISCHARGE HOME Condition: Stable Paty Falcon MD May 26, 2017 19:26
[2017-05-26 19:45] VITALS: BP 143/81
--- NOTE | 2017-05-27 12:15 | EKG ---
Date Performed: 05/26/2017 Time Performed: 19:33:09 PTAGE: 57 years EKG: Sinus rhythm WITH SINUS ARRHYTHMIA BORDERLINE LEFT AXIS DEVIATION MODERATE INTRAVENTRICULAR CONDUCTION DELAY [facility] ECG INTERPRETATION BASED ON A DEFAULT AGE OF 40 YEARS PREVIOUS TRACING : 05/26/2017 19.06 Since previous tracing, no significant change. DOCTOR: Harrison Werner Interpretating Date/Time 05/27/2017 12:13:48
== END 2017-05-26 19:56 | disposition home or self-care (01) ==
LOC: PHED 18:16
DX: R42 Dizziness and giddiness (principal); E11.65 Type 2 diabetes mellitus with hyperglycemia; R53.81 Other malaise; R94.31 Abnormal electrocardiogram [ECG] [EKG]; E78.00 Pure hypercholesterolemia, unspecified; F17.200 Nicotine dependence, unspecified, uncomplicated; Z79.4 Long term (current) use of insulin; Z87.09 Personal history of other diseases of the respiratory system; Z86.59 Personal history of other mental and behavioral disorders; Z86.79 Personal history of other diseases of the circulatory system; Z87.19 Personal history of other diseases of the digestive system; Z87.39 Personal history of other diseases of the musculoskeletal system and connective tissue
CPT/HCPCS: 80048; 84484; 85025; 93005; 96360; 99284; J7030

== ENCOUNTER 2017-05-26 23:23 | Emergency (ER) | payer OTHER ==
[~2017-05-26] VITALS: Ht 180.3 cm; Wt 86.4 kg
[2017-05-26 23:25] VITALS: BP 192/90; PULSE 89; RESP 18; TEMP 86.4; TEMP 98.4; O2SAT 92
[2017-05-27 00:41] LABS: ALT (GPT) 26 U/L (12-78); AST (GOT) 10 U/L (15-37)
[2017-05-27 00:43] LABS: INDIRECT BILIRUBIN 0.3 MG/DL (0.0-0.8); TOTAL BILIRUBIN ADULT 0.4 MG/DL (0.2-1.0)
[2017-05-27 00:44] LABS: ALKALINE PHOSPHATASE 69 U/L (45-117)
[2017-05-27] MEDS ORDERED: ALPRAZolam 1 MG TAB PO ONE ×2 (00:45)
[2017-05-27] MEDS ORDERED: ALPRAZolam 0.5 MG TAB PO ONE (00:45)
[2017-05-27 01:30] VITALS: BP 163/88; PULSE 66; RESP 18; O2SAT 95
--- NOTE | 2017-05-27 01:49 | PD ---
HPI Chief Complaint: Chest Pain Time Seen by Provider: 23:40 Travel History International Travel<30 days: No Contact w/Intl Traveler<30days: No Traveled to known affect area: No History of Present Illness HPI This is a 57-year-old male who presents to the emergency department for the second time today. He currently is reporting pressure in the upper abdomen, constant, mild that's been present all day. He denies any fevers or chills. He denies any vomiting or diarrhea. He was seen earlier today by Dr. Jeff and by me. At that time he was not complaining of pain but reported lightheadedness and not feeling himself. He had basic labs which were reassuring. He does acknowledge that he has a history of anxiety and he thinks that maybe what is going on. PFSH Past Medical History Asthma: Yes Anxiety: Yes Depression: Yes Cancer: No Cardiovascular Problems: Yes High Cholesterol: Yes Diabetes: Yes Patient Takes Glucophage: Yes Diminished Hearing: No Gastrointestinal Disorders: Yes (hernia repair at age 8 ) Genitourinary: No Headaches: No Hypertension: No Immune Disorder: No Implanted Vascular Access Dvce: No Musculoskeletal: Yes (chronic back and neck pain) Neurologic: No Psychiatric: Yes (Hx of treatment for depression) Reproductive: No Respiratory: Yes (ASTHMA) Immunizations Current: Yes Thyroid Disease: No Tetanus Vaccination: Unknown Influenza Vaccination: No Past Surgical History Abdominal Surgery: Yes (hernia) Appendectomy: Yes Other Surgery: Yes (hernia repair) Social History Alcohol Use: Yes (occasionally) Tobacco Use: Yes (1 ppd) Substance Use: No Allergies-Medications (Allergen,Severity, Reaction): Coded Allergies: trazodone (Unverified Allergy, Unknown, Swelling, 05/26/17) Reported Meds & Prescriptions Reported Meds & Active Scripts Active Flomax (Tamsulosin HCl) 0.4 Mg Cap 0.4 Mg PO HS Pravachol (Pravastatin) 40 Mg Tab 40 Mg PO HS Oxymorphone ER 12 HR (Oxymorphone HCl) 10 Mg Tab 20 Mg PO Q12H Glucophage (Metformin HCl) 500 Mg Tab 500 Mg PO TIDPC Glipizide 10 Mg Tab 10 Mg PO BIDAC Fenofibrate 145 Mg Tab 145 Mg PO DAILY Reported Xanax (Alprazolam) 2 Mg Tab 2 Mg PO BID PRN [regular insulin] 20 SQ DAILY Mobic (Meloxicam) 15 Mg Tab 15 Mg PO DAILY Effexor (Venlafaxine HCl) 75 Mg Tab 75 Mg PO DAILY Ventolin Hfa 18 GM Inh (Albuterol Sulfate) 90 Mcg/Act Aer 2 Puff INH Q4H PRN Review of Systems Except as stated in HPI: all other systems reviewed are Neg Physical Exam Narrative GENERAL:Well appearing, no acute distress SKIN: Focused skin assessment warm and dry. HEAD: Atraumatic. Normocephalic. EYES: Pupils equal and round. No injection or drainage. ENT: Moist mucous membranes NECK: Trachea midline. CARDIOVASCULAR: Regular rate and rhythm. No murmur appreciated. RESPIRATORY: Clear to auscultation. Breath sounds equal bilaterally. GASTROINTESTINAL: Abdomen soft, mildly tender to palpation in the epigastrium with no rebound or guarding. MUSCULOSKELETAL: No obvious deformities. NEUROLOGICAL: Awake and alert. No obvious cranial nerve deficits. Moving all extremities. PSYCHIATRIC: Appropriate mood and affect; insight and judgment normal. Data Data Last Documented VS Vital Signs Date Time Temp Pulse Resp B/P (MAP) Pulse Ox O2 Delivery O2 Flow Rate FiO2 05/26/17 23:43 74 16 95 Room Air 05/26/17 23:37 (124) 05/26/17 23:25 86.4 Orders Orders Troponin I (05/26/17 23:51) Hepatic Functional Panel (05/26/17 23:51) Lipase (05/26/17 23:51) Alprazolam (Xanax) (05/27/17 00:45) Alprazolam (Xanax) (05/27/17 00:45) Troponin I (05/27/17 01:13) Labs Laboratory Tests Test 05/26/17 23:55 Total Bilirubin 0.4 MG/DL Direct Bilirubin 0.1 MG/DL Indirect Bilirubin 0.3 MG/DL Aspartate Amino Transf (AST/SGOT) 10 U/L Alanine Aminotransferase (ALT/SGPT) 26 U/L Alkaline Phosphatase 69 U/L Troponin I LESS THAN 0.02 NG/ML Total Protein 6.8 GM/DL Albumin 3.6 GM/DL Lipase 106 U/L MDM Medical Decision Making Medical Screen Exam Complete: Yes Emergency Medical Condition: Yes Medical Record Reviewed: Yes (patient had a low probability stress test on January 16, 2017) Interpretation(s) ekg: nsr, left axis deviation, no st changes Mild leukocytosis from earlier today LFTs are normal Troponin is negative at 7 PM and again at midnight Differential Diagnosis Acute coronary syndrome, gastritis, peptic ulcer disease, cholelithiasis, cholecystitis Narrative Course This is a 57-year-old male who presents to the emergency department with epigastric discomfort in the setting of lightheadedness. This is his second visit to the emergency department. He is a very flat affect and is somewhat a poor historian. EKG is reassuring and unchanged from earlier. Labs were obtained earlier today and I added LFTs and a lipase which were normal. Troponin was repeated which was normal over a 5 hour period. Patient had a normal stress test on January 16 of this year. I don't think the patient has a life -threatening etiology of his symptoms and I think he's safe to follow-up with his primary care physician. I do think the underlying driving factor of his presentations may be anxiety. Diagnosis Primary Impression: Epigastric discomfort Patient Instructions: General Instructions Additional Instructions: If you develop severe chest pain, shortness of breath, sweating, lightheadedness , dizziness or difficulty breathing return to the emergency department immediately. Followup with your primary care physician in 2-3 days if your symptoms are not resolved. Med/Other Pt SpecificInfo: No Change to Meds Disposition: 01 DISCHARGE HOME Condition: Stable Paty Falcon MD May 27, 2017 01:49
[2017-05-27 02:00] VITALS: BP 155/85; PULSE 84; RESP 18; O2SAT 98
[2017-05-27 02:45] VITALS: BP 125/78; PULSE 64; RESP 18; TEMP 98; O2SAT 96
--- NOTE | 2017-05-27 12:15 | EKG ---
Date Performed: 05/26/2017 Time Performed: 23:38:15 PTAGE: 57 years EKG: Sinus rhythm MARKED LEFT AXIS DEVIATION MODERATE INTRAVENTRICULAR CONDUCTION DELAY ABNORMAL ECG PREVIOUS TRACING : 05/26/2017 19.33 Since previous tracing, no significant change. DOCTOR: Harrison Werner Interpretating Date/Time 05/27/2017 12:14:02
== END 2017-05-27 03:10 | disposition home or self-care (01) ==
LOC: PHED 23:23
DX: R10.13 Epigastric pain (principal); D72.829 Elevated white blood cell count, unspecified; R94.31 Abnormal electrocardiogram [ECG] [EKG]; E11.9 Type 2 diabetes mellitus without complications; E78.00 Pure hypercholesterolemia, unspecified; F17.200 Nicotine dependence, unspecified, uncomplicated; Z79.4 Long term (current) use of insulin; Z86.59 Personal history of other mental and behavioral disorders; Z87.09 Personal history of other diseases of the respiratory system; Z86.79 Personal history of other diseases of the circulatory system; Z87.19 Personal history of other diseases of the digestive system; Z87.39 Personal history of other diseases of the musculoskeletal system and connective tissue
CPT/HCPCS: 80076; 83690; 84484; 93005; 99283

== ENCOUNTER 2017-05-29 21:06 | Emergency (ER) | payer OTHER ==
[~2017-05-29] VITALS: Ht 177.8 cm; Wt 75.0 kg
[~2017-05-29 21:06] MED LIST changes: -XANA1TAB2 PO
[2017-05-29 21:14] VITALS: BP 137/75; PULSE 66; RESP 16; TEMP 98.3; O2SAT 98
[2017-05-29 21:25] VITALS: BP 140/79; PULSE 63; RESP 18; TEMP 98.5; O2SAT 98
[2017-05-29] MEDS ORDERED: SODIUM CHLORIDE 0.9% FLUSH 10 ML FLUSH IV FLUSH PRN (21:30)
[2017-05-29] MEDS ORDERED: SODIUM CHLOR 0.9% 1000 ML INJ 1,000 ML IV ONE (21:30)
--- NOTE | 2017-05-29 21:32 | PD ---
HPI Chief Complaint: Chest Pain Time Seen by Provider: 21:15 Travel History International Travel<30 days: No Contact w/Intl Traveler<30days: No Traveled to known affect area: No History of Present Illness HPI 57-year-old male presents to the emergency department via EMS for evaluation of generalized weakness, epigastric pain. Patient was seen 3 days ago at [facility] for the same issue. Patient states he has continued. No fevers or chills. No syncope. First, patient states he has chest heaviness, but points to epigastric region. Upon further questioning, he denies any chest pain or shortness of breath. He denies any nausea or vomiting. No diarrhea or constipation. He reports history diabetes, hypertension, depression. No exacerbating or alleviating factors. Severity is mild. PFSH Past Medical History Asthma: Yes Anxiety: Yes Depression: Yes Cancer: No Cardiovascular Problems: Yes High Cholesterol: Yes Diabetes: Yes Patient Takes Glucophage: No Diminished Hearing: No Gastrointestinal Disorders: Yes (hernia repair at age 8 ) Genitourinary: No Headaches: No Hypertension: No Immune Disorder: No Implanted Vascular Access Dvce: No Musculoskeletal: Yes (chronic back and neck pain) Neurologic: No Psychiatric: Yes (Hx of treatment for depression) Reproductive: No Respiratory: Yes Immunizations Current: Yes Thyroid Disease: No Past Surgical History Abdominal Surgery: Yes (hernia) Appendectomy: Yes Other Surgery: Yes (hernia repair) Social History Alcohol Use: Yes ("NOT REALLY") Tobacco Use: Yes (1 ppd) Substance Use: No Allergies-Medications (Allergen,Severity, Reaction): Coded Allergies: trazodone (Unverified Allergy, Unknown, Swelling, 05/29/17) Reported Meds & Prescriptions Reported Meds & Active Scripts Active Flomax (Tamsulosin HCl) 0.4 Mg Cap 0.4 Mg PO HS Pravachol (Pravastatin) 40 Mg Tab 40 Mg PO HS Oxymorphone ER 12 HR (Oxymorphone HCl) 10 Mg Tab 20 Mg PO Q12H Glucophage (Metformin HCl) 500 Mg Tab 500 Mg PO TIDPC Glipizide 10 Mg Tab 10 Mg PO BIDAC Fenofibrate 145 Mg Tab 145 Mg PO DAILY Reported Xanax (Alprazolam) 2 Mg Tab 2 Mg PO BID PRN [regular insulin] 20 SQ DAILY Mobic (Meloxicam) 15 Mg Tab 15 Mg PO DAILY Effexor (Venlafaxine HCl) 75 Mg Tab 75 Mg PO DAILY Ventolin Hfa 18 GM Inh (Albuterol Sulfate) 90 Mcg/Act Aer 2 Puff INH Q4H PRN Review of Systems Except as stated in HPI: all other systems reviewed are Neg Physical Exam Narrative GENERAL: Well-nourished, well-developed male patient, ambulatory. Afebrile. SKIN: Focused skin assessment warm/dry. HEAD: Normocephalic. Atraumatic EYES: No scleral icterus. No injection or drainage. NECK: Supple, trachea midline. No JVD or lymphadenopathy. CARDIOVASCULAR: Regular rate and rhythm without murmurs, gallops, or rubs. RESPIRATORY: Breath sounds equal bilaterally. No accessory muscle use. Lungs sounds are clear to auscultation. GASTROINTESTINAL: Abdomen soft, non-tender, nondistended. No epigastric or abdominal tenderness to palpation. MUSCULOSKELETAL: No cyanosis, or edema. Bilateral upper and lower extremity strength 5/5. All extremities are neurovascularly intact. BACK: Nontender without obvious deformity. No CVA tenderness. Data Data Last Documented VS Vital Signs Date Time Temp Pulse Resp B/P (MAP) Pulse Ox O2 Delivery O2 Flow Rate FiO2 05/29/17 21:25 98.5 63 18 140/79 (99) 98 Room Air Orders Orders Complete Blood Count With Diff (05/29/17 21:20) Comprehensive Metabolic Panel (05/29/17 21:20) Lipase (05/29/17 21:20) Urinalysis - C+S If Indicated (05/29/17 21:20) Iv Access Insert/Monitor (05/29/17 21:20) Ecg Monitoring (05/29/17 21:20) Oximetry (05/29/17 21:20) Sodium Chloride 0.9% Flush (Ns Flush) (05/29/17 21:30) Electrocardiogram (05/29/17 21:20) Chest, Single Ap (05/29/17 ) Creatine Kinase (Cpk) (05/29/17 21:20) Troponin I (05/29/17 21:20) Sodium Chlor 0.9% 1000 Ml Inj (Ns 1000 M (05/29/17 21:30) CKMB (05/29/17 21:20) CKMB% (05/29/17 21:20) Pantoprazole Inj (Protonix Inj) (05/29/17 22:45) Labs Laboratory Tests Test 05/29/17 21:20 White Blood Count 12.1 TH/MM3 Red Blood Count 4.39 MIL/MM3 Hemoglobin 13.0 GM/DL Hematocrit 37.9 % Mean Corpuscular Volume 86.5 FL Mean Corpuscular Hemoglobin 29.7 PG Mean Corpuscular Hemoglobin Concent 34.3 % Red Cell Distribution Width 12.9 % Platelet Count 233 TH/MM3 Mean Platelet Volume 8.5 FL Neutrophils (%) (Auto) 72.3 % Lymphocytes (%) (Auto) 17.7 % Monocytes (%) (Auto) 7.9 % Eosinophils (%) (Auto) 1.7 % Basophils (%) (Auto) 0.4 % Neutrophils # (Auto) 8.7 TH/MM3 Lymphocytes # (Auto) 2.1 TH/MM3 Monocytes # (Auto) 1.0 TH/MM3 Eosinophils # (Auto) 0.2 TH/MM3 Basophils # (Auto) 0.1 TH/MM3 CBC Comment DIFF FINAL Differential Comment Blood Urea Nitrogen 10 MG/DL Creatinine 0.89 MG/DL Random Glucose 143 MG/DL Total Protein 6.4 GM/DL Albumin 3.5 GM/DL Calcium Level 8.7 MG/DL Alkaline Phosphatase 67 U/L Aspartate Amino Transf (AST/SGOT) 29 U/L Alanine Aminotransferase (ALT/SGPT) 26 U/L Total Bilirubin 0.5 MG/DL Sodium Level 133 MEQ/L Potassium Level 4.0 MEQ/L Chloride Level 99 MEQ/L Carbon Dioxide Level 24.2 MEQ/L Anion Gap 10 MEQ/L Estimat Glomerular Filtration Rate 88 ML/MIN Total Creatine Kinase 317 U/L Creatine Kinase MB 4.7 NG/ML Creatine Kinase MB % 1.5 % Troponin I LESS THAN 0.02 NG/ML Lipase 177 U/L MDM Medical Decision Making Medical Screen Exam Complete: Yes Emergency Medical Condition: Yes Medical Record Reviewed: Yes Differential Diagnosis GERD versus pancreatitis versus ACS Narrative Course 57-year-old male presents to the emergency department for evaluation of feeling weak and having epigastric "heaviness". Abdominal exam is benign with no tenderness to palpation. Patient was just recently evaluated for the same. Patient had normal stress test done on January 16, 2017. EKG, CBC, CMP, CK, troponin, lipase, UA are ordered and pending. Chest x-ray is ordered and pending. Patient is given normal saline 1 L IV bolus. EKG shows sinus rhythm, heart rate 66, no acute ST changes. CBC shows slight leukocytosis 12.1. CMP shows no acute abnormality. Lipase is 177. CK is 317. Troponin is less than 0.02. Chest x-ray shows no acute abnormality. Patient is given Protonix 40 mg IV. He will be discharged with a prescription for omeprazole. Patient is instructed to follow up with his primary care physician. Diagnosis Primary Impression: Epigastric heaviness Referrals: Primary Care Physician 2 days Patient Instructions: Epigastric Pain (ED), General Instructions Additional Instructions: Take omeprazole as directed. Follow-up with your primary care physician. Return to the emergency department for any acute worsening of symptoms. Med/Other Pt SpecificInfo: Prescription(s) given Scripts Omeprazole (Omeprazole) 40 Mg Cap 40 MG PO DAILY, #30 CAP 0 Refills Prov: Serenity Romo 05/29/17 Disposition: 01 DISCHARGE HOME Condition: Stable Serenity Romo May 29, 2017 21:32
[2017-05-29 22:02] LABS: AUTOMATED NEUTROPHIL # 8.7 TH/MM3 (1.8-7.7); BASOPHIL # 0.1 TH/MM3 (0-0.2); BASOPHIL % 0.4 % (0.0-2.0); EOSINOPHIL # 0.2 TH/MM3 (0-0.4); EOSINOPHIL % 1.7 % (0.0-4.0); HEMATOCRIT 37.9 % (39.0-51.0); HEMO FLAGS DIFF FINAL; LYMPH % 17.7 % (9.0-44.0); LYMPHOCYTE # 2.1 TH/MM3 (1.0-4.8); MEAN CELL VOLUME 86.5 FL (80.0-100.0); MEAN CORPUSCULAR HEMOGLOBIN 29.7 PG (27.0-34.0); MEAN CORPUSCULAR HGB CONC 34.3 % (32.0-36.0); MONO % 7.9 % (0.0-8.0); NEUT % 72.3 % (16.0-70.0); PLATELET COUNT 233 TH/MM3 (150-450); RED BLOOD COUNT 4.39 MIL/MM3 (4.50-5.90); RED CELL DISTRIBUTION WIDTH 12.9 % (11.6-17.2); WHITE BLOOD COUNT 12.1 TH/MM3 (4.0-11.0)
[2017-05-29 22:19] LABS: ALT (GPT) 26 U/L (12-78)
[2017-05-29 22:20] LABS: ANION GAP 10 MEQ/L (5-15); AST (GOT) 29 U/L (15-37); BICARBONATE 24.2 MEQ/L (21.0-32.0); BLOOD UREA NITROGEN 10 MG/DL (7-18); CHLORIDE 99 MEQ/L (98-107); GLOMERULAR FILTRATION RATE 88 ML/MIN (>89); SODIUM (NA) 133 MEQ/L (136-145)
[2017-05-29 22:24] LABS: ALKALINE PHOSPHATASE 67 U/L (45-117); CREATINE KINASE 317 U/L (39-308); TOTAL BILIRUBIN ADULT 0.5 MG/DL (0.2-1.0)
[2017-05-29 22:37] LABS: CKMB 4.7 NG/ML (0.5-3.6)
[2017-05-29] MEDS ORDERED: PANTOPRAZOLE SODIUM 40 MG VIAL IV PUSH ONE (22:45)
[2017-05-29] MEDS ORDERED: OMEP40CA2 PO (22:48)
--- NOTE | 2017-05-29 22:48 | RADRPT ---
EXAM DATE/TIME: 05/29/2017 21:35 [facility] COMPARISON: CHEST PA&LAT W/APICAL LORDOTIC, January 15, 2017, 18:14. CHEST SINGLE AP, January 15, 2017, 16:45. INDICATIONS : Chest pressure. MEDICAL HISTORY : None. SURGICAL HISTORY : None. ENCOUNTER: Initial ACUITY: 1 day PAIN SCORE: 3/10 LOCATION: Bilateral chest FINDINGS: The heart size is normal. The lungs are clear. There is asymmetric hypertrophic change at the first c ostochondral junction. CONCLUSION: No acute disease. Ronaldo Cantrell MD on May 29, 2017 at 22:45 Board Certified Radiologist. This report was verified electronically.
[2017-05-29 22:49] LABS: BLOOD, URINE NEG (NEG); GLUCOSE,URINE NEG (NEG); KETONE, URINE NEG (NEG); MUCUS URINE FEW /lpf (OCC); NITRITE,URINE NEG (NEG); PH, URINE 5.5 (5.0-8.5); SQUAMOUS EPITHELIAL CELL URINE <1 /hpf (0-5); URINE COLOR YELLOW (YELLW/STRAW)
[2017-05-29 22:51] LABS: COMMENT (UR) CULT NOT INDICATED; CULTURE IF INDICATED CULT NOT INDICATED
[2017-05-29 23:09] VITALS: BP 126/76; PULSE 67; RESP 18; O2SAT 98
--- NOTE | 2017-05-30 14:14 | EKG ---
Date Performed: 05/29/2017 Time Performed: 21:35:57 PTAGE: 57 years EKG: Sinus rhythm BORDERLINE LEFT AXIS DEVIATION MODERATE INTRAVENTRICULAR CONDUCTION DELAY BORDERLINE ECG PREVIOUS TRACING : 05/26/2017 23.38 Compared to prior tracing no significant change DOCTOR: Hawk James Interpretating Date/Time 05/30/2017 14:09:30
== END 2017-05-29 23:20 | disposition home or self-care (01) ==
LOC: NEPC 21:06
DX: R10.13 Epigastric pain (principal); R94.31 Abnormal electrocardiogram [ECG] [EKG]; E11.9 Type 2 diabetes mellitus without complications; F17.210 Nicotine dependence, cigarettes, uncomplicated
CPT/HCPCS: 71010; 80053; 81001; 82550; 82552; 83690; 84484; 85025; 93005; 96361; 96374; 99285; C9113; J7030

== ENCOUNTER 2017-06-04 21:28 | Emergency (ER) | payer OTHER ==
[~2017-06-04] VITALS: Ht 180.3 cm; Wt 83.4 kg
[~2017-06-04 21:28] MED LIST changes: +OMEP40CA2 PO
[2017-06-04 21:55] VITALS: BP 169/90; PULSE 62; RESP 20; TEMP 98.1; O2SAT 98
[2017-06-04] MEDS ORDERED: SODIUM CHLOR 0.9% 1000 ML INJ 1,000 ML IV SCH (22:19)
--- NOTE | 2017-06-04 22:24 | PD ---
HPI Chief Complaint: GI Complaint Time Seen by Provider: 22:03 Travel History International Travel<30 days: No Contact w/Intl Traveler<30days: No Traveled to known affect area: No History of Present Illness HPI The patient is a 57-year-old male who presents emergency department for nausea, vomiting, and epigastric discomfort. The patient states his symptoms started yesterday, complains of nausea, vomiting, and mild discomfort in the epigastrium after vomiting. He denies any actual abdominal pain. The patient had 2 previous visits this month with similar symptoms, however, he states he was here for anxiety at that time. The patient states every several days he will get these symptoms. The patient denies any fever, chills, or sweats. He does have a history of appendectomy, denies any known history of pancreatitis or biliary colic. The patient's symptoms are moderate, there are currently no alleviating or exacerbating factors. He denies any chest pain or shortness of breath. PFSH Past Medical History Asthma: Yes Anxiety: Yes Depression: Yes Cancer: No Cardiovascular Problems: Yes High Cholesterol: Yes Diabetes: Yes Patient Takes Glucophage: Yes Diminished Hearing: No Gastrointestinal Disorders: Yes (hernia repair at age 8 ) Genitourinary: No Headaches: No Hypertension: No Immune Disorder: No Implanted Vascular Access Dvce: No Musculoskeletal: Yes (chronic back and neck pain) Neurologic: No Psychiatric: Yes (Hx of treatment for depression) Reproductive: No Respiratory: Yes Immunizations Current: Yes Thyroid Disease: No ?: Not Past Surgical History Abdominal Surgery: Yes (hernia) Appendectomy: Yes Other Surgery: Yes (hernia repair) Social History Alcohol Use: Yes ("NOT REALLY") Tobacco Use: Yes (1 ppd) Substance Use: No Allergies-Medications (Allergen,Severity, Reaction): Coded Allergies: trazodone (Unverified Allergy, Unknown, Swelling, 05/29/17) Reported Meds & Prescriptions Reported Meds & Active Scripts Active Omeprazole 40 Mg Cap 40 Mg PO DAILY Flomax (Tamsulosin HCl) 0.4 Mg Cap 0.4 Mg PO HS Pravachol (Pravastatin) 40 Mg Tab 40 Mg PO HS Oxymorphone ER 12 HR (Oxymorphone HCl) 10 Mg Tab 20 Mg PO Q12H Glucophage (Metformin HCl) 500 Mg Tab 500 Mg PO TIDPC Glipizide 10 Mg Tab 10 Mg PO BIDAC Fenofibrate 145 Mg Tab 145 Mg PO DAILY Reported Xanax (Alprazolam) 2 Mg Tab 2 Mg PO BID PRN [regular insulin] 20 SQ DAILY Mobic (Meloxicam) 15 Mg Tab 15 Mg PO DAILY Effexor (Venlafaxine HCl) 75 Mg Tab 75 Mg PO DAILY Ventolin Hfa 18 GM Inh (Albuterol Sulfate) 90 Mcg/Act Aer 2 Puff INH Q4H PRN Review of Systems Except as stated in HPI: all other systems reviewed are Neg General / Constitutional: No: Fever Cardiovascular: No: Chest Pain or Discomfort Gastrointestinal: Positive: Nausea, Vomiting, Abdominal Pain, No: Diarrhea Musculoskeletal: No: Weakness Psychiatric: Positive: Anxiety Physical Exam Narrative GENERAL: Awake, alert, nontoxic-appearing 57-year-old male who appears his stated age and is in no acute respiratory distress. SKIN: Focused skin assessment warm/dry. HEAD: Atraumatic. Normocephalic. EYES: Pupils equal and round. No scleral icterus. No injection or drainage. ENT: No nasal bleeding or discharge. Mucous membranes pink and moist. NECK: Trachea midline. No JVD. CARDIOVASCULAR: Regular rate and rhythm. No murmur appreciated. RESPIRATORY: No accessory muscle use. Clear to auscultation. Breath sounds equal bilaterally. GASTROINTESTINAL: Abdomen soft, non-tender, nondistended. Negative Pryor's. No epigastric tenderness. No guarding or rigidity. MUSCULOSKELETAL: No obvious deformities. No clubbing. No cyanosis. No edema. NEUROLOGICAL: Awake and alert. No obvious cranial nerve deficits. Motor grossly within normal limits. Normal speech. PSYCHIATRIC: Appropriate mood and affect; insight and judgment normal. Data Data Last Documented VS Vital Signs Date Time Temp Pulse Resp B/P (MAP) Pulse Ox O2 Delivery O2 Flow Rate FiO2 06/04/17 21:55 98.1 62 20 169/90 (116) 98 Orders Orders Complete Blood Count With Diff (06/04/17 22:19) Comprehensive Metabolic Panel (06/04/17 22:19) Lipase (06/04/17 22:19) Lactic Acid (06/04/17 22:19) Iv Access Insert/Monitor (06/04/17 22:19) Ecg Monitoring (06/04/17 22:19) Oximetry (06/04/17 22:19) Morphine Inj (Morphine Inj) (06/04/17 22:30) Ondansetron Inj (Zofran Inj) (06/04/17 22:30) Sodium Chlor 0.9% 1000 Ml Inj (Ns 1000 M (06/04/17 22:19) Sodium Chloride 0.9% Flush (Ns Flush) (06/04/17 22:30) Famotidine Inj (Pepcid Inj) (06/04/17 22:30) Al-Mag Hy-Si 40-40-4 Mg/Ml Liq (Mag-Al P (06/04/17 22:30) Lidocaine 2% Viscous (Xylocaine 2% Visco (06/04/17 22:30) Sodium Chlor 0.9% 1000 Ml Inj (Ns 1000 M (06/04/17 23:00) Labs Laboratory Tests Test 06/04/17 22:30 White Blood Count 13.1 TH/MM3 Red Blood Count 5.27 MIL/MM3 Hemoglobin 15.3 GM/DL Hematocrit 46.0 % Mean Corpuscular Volume 87.3 FL Mean Corpuscular Hemoglobin 29.1 PG Mean Corpuscular Hemoglobin Concent 33.3 % Red Cell Distribution Width 12.0 % Platelet Count 299 TH/MM3 Mean Platelet Volume 8.3 FL Neutrophils (%) (Auto) 84.9 % Lymphocytes (%) (Auto) 8.0 % Monocytes (%) (Auto) 4.1 % Eosinophils (%) (Auto) 0.2 % Basophils (%) (Auto) 2.8 % Neutrophils # (Auto) 11.2 TH/MM3 Lymphocytes # (Auto) 1.0 TH/MM3 Monocytes # (Auto) 0.5 TH/MM3 Eosinophils # (Auto) 0.0 TH/MM3 Basophils # (Auto) 0.4 TH/MM3 CBC Comment DIFF FINAL Differential Comment Blood Urea Nitrogen 10 MG/DL Creatinine 0.98 MG/DL Random Glucose 283 MG/DL Total Protein 7.6 GM/DL Albumin 4.1 GM/DL Calcium Level 8.9 MG/DL Alkaline Phosphatase 71 U/L Aspartate Amino Transf (AST/SGOT) 8 U/L Alanine Aminotransferase (ALT/SGPT) 27 U/L Total Bilirubin 0.4 MG/DL Sodium Level 135 MEQ/L Potassium Level 3.8 MEQ/L Chloride Level 98 MEQ/L Carbon Dioxide Level 27.6 MEQ/L Anion Gap 9 MEQ/L Estimat Glomerular Filtration Rate 79 ML/MIN Lactic Acid Level 2.9 mmol/L Lipase 74 U/L [facility] Medical Decision Making Medical Screen Exam Complete: Yes Emergency Medical Condition: Yes Medical Record Reviewed: Yes Interpretation(s) Laboratory Tests Test 06/04/17 22:30 White Blood Count 13.1 TH/MM3 Red Blood Count 5.27 MIL/MM3 Hemoglobin 15.3 GM/DL Hematocrit 46.0 % Mean Corpuscular Volume 87.3 FL Mean Corpuscular Hemoglobin 29.1 PG Mean Corpuscular Hemoglobin Concent 33.3 % Red Cell Distribution Width 12.0 % Platelet Count 299 TH/MM3 Mean Platelet Volume 8.3 FL Neutrophils (%) (Auto) 84.9 % Lymphocytes (%) (Auto) 8.0 % Monocytes (%) (Auto) 4.1 % Eosinophils (%) (Auto) 0.2 % Basophils (%) (Auto) 2.8 % Neutrophils # (Auto) 11.2 TH/MM3 Lymphocytes # (Auto) 1.0 TH/MM3 Monocytes # (Auto) 0.5 TH/MM3 Eosinophils # (Auto) 0.0 TH/MM3 Basophils # (Auto) 0.4 TH/MM3 CBC Comment DIFF FINAL Differential Comment Blood Urea Nitrogen 10 MG/DL Creatinine 0.98 MG/DL Random Glucose 283 MG/DL Total Protein 7.6 GM/DL Albumin 4.1 GM/DL Calcium Level 8.9 MG/DL Alkaline Phosphatase 71 U/L Aspartate Amino Transf (AST/SGOT) 8 U/L Alanine Aminotransferase (ALT/SGPT) 27 U/L Total Bilirubin 0.4 MG/DL Sodium Level 135 MEQ/L Potassium Level 3.8 MEQ/L Chloride Level 98 MEQ/L Carbon Dioxide Level 27.6 MEQ/L Anion Gap 9 MEQ/L Estimat Glomerular Filtration Rate 79 ML/MIN Lactic Acid Level 2.9 mmol/L Lipase 74 U/L Differential Diagnosis Differential diagnosis includes gastritis, peptic ulcer disease, GERD, hiatal hernia, pancreatitis, biliary colic. Narrative Course IV was established, labs are drawn and sent, and the patient was placed on cardiac telemetry monitoring and continuous pulse oximetry monitoring. The patient was administer morphine, Zofran, Pepcid, and GI cocktail. Patient was administered 1 L of IV fluids. I reviewed the patient's EMR, he had a negative nuclear medicine myocardial perfusion scan on January 16, 2017, I doubt this is cardiac in origin. I also reviewed the 2 previous visits this month for similar symptoms, the patient did mention he thought his symptoms related to anxiety with his nausea and vomiting to Dr. Falcon is also seen by the PA, Serenity Glaser. His workers at that time were unremarkable. The patient's abdominal exam is benign. The patient's lactic acid is mildly elevated at 2.9 and glucose is mildly elevated. Therefore, the patient was administered a second dose of IV fluids. Patient's abdominal exam is benign, this may be related to gastroparesis versus gastritis. The patient is advised to follow-up with gastroenterology on an outpatient basis as he may need an endoscopy. The patient will be discharged home on Reglan as needed for nausea and vomiting. Diagnosis Primary Impression: Gastritis Qualified Codes: K29.00 - Acute gastritis without bleeding Patient Instructions: General Instructions Additional Instructions: Medications as directed. Clear liquid diet and advance as tolerated. Follow- up with gastroenterology. Return if symptoms worsen or progress. Med/Other Pt SpecificInfo: Prescription(s) given Scripts Metoclopramide (Reglan) 10 Mg Tab 10 MG PO QID Y for NAUSEA OR VOMITING, #20 TAB 0 Refills Prov: Satinder Delcid MD 06/04/17 Disposition: DISCHARGE HOME Condition: Stable Satinder Delcid MD Jun 04, 2017 22:24
[2017-06-04] MEDS ORDERED: LIDOCAINE VISCOUS 2% SOLN 15 ML UDC PO ONE (22:30)
[2017-06-04] MEDS ORDERED: ALUMINUM/MAGNESIUM/SIMETH 30 ML CUP PO ONE (22:30)
[2017-06-04] MEDS ORDERED: MORPHINE SULFATE 4 MG/ML INJ IV PUSH ONE (22:30)
[2017-06-04] MEDS ORDERED: ONDANSETRON HCL 4 MG/2 ML VIAL IVP ONE (22:30)
[2017-06-04] MEDS ORDERED: FAMOTIDINE 20 MG/2 ML VIAL IV PUSH ONE (22:30)
[2017-06-04] MEDS ORDERED: SODIUM CHLORIDE 0.9% FLUSH 10 ML FLUSH IV FLUSH PRN (22:30)
[2017-06-04 22:37] LABS: AUTOMATED NEUTROPHIL # 11.2 TH/MM3 (1.8-7.7); BASOPHIL # 0.4 TH/MM3 (0-0.2); BASOPHIL % 2.8 % (0.0-2.0); EOSINOPHIL % 0.2 % (0.0-4.0); HEMO FLAGS DIFF FINAL; MEAN CELL VOLUME 87.3 FL (80.0-100.0); MEAN CORPUSCULAR HEMOGLOBIN 29.1 PG (27.0-34.0); MEAN CORPUSCULAR HGB CONC 33.3 % (32.0-36.0); MONO % 4.1 % (0.0-8.0); NEUT % 84.9 % (16.0-70.0); PLATELET COUNT 299 TH/MM3 (150-450); RED BLOOD COUNT 5.27 MIL/MM3 (4.50-5.90); WHITE BLOOD COUNT 13.1 TH/MM3 (4.0-11.0)
[2017-06-04 22:48] LABS: CHLORIDE 98 MEQ/L (98-107); POTASSIUM 3.8 MEQ/L (3.5-5.1); SODIUM (NA) 135 MEQ/L (136-145)
[2017-06-04 22:52] LABS: ANION GAP 9 MEQ/L (5-15); BICARBONATE 27.6 MEQ/L (21.0-32.0); BLOOD UREA NITROGEN 10 MG/DL (7-18)
[2017-06-04 22:55] LABS: ALT (GPT) 27 U/L (12-78); AST (GOT) 8 U/L (15-37); GLOMERULAR FILTRATION RATE 79 ML/MIN (>89)
[2017-06-04 22:56] LABS: TOTAL BILIRUBIN ADULT 0.4 MG/DL (0.2-1.0)
[2017-06-04 22:58] LABS: ALKALINE PHOSPHATASE 71 U/L (45-117)
[2017-06-04] MEDS ORDERED: SODIUM CHLOR 0.9% 1000 ML INJ 1,000 ML IV ONE (23:00)
[2017-06-04] MEDS ORDERED: REGL10TA5 PO (23:04)
[2017-06-04 23:55] VITALS: BP 138/78
== END 2017-06-04 23:59 | disposition home or self-care (01) ==
LOC: PHED 21:28
DX: K29.00 Acute gastritis without bleeding (principal); F41.9 Anxiety disorder, unspecified; E11.9 Type 2 diabetes mellitus without complications; E78.00 Pure hypercholesterolemia, unspecified; F17.200 Nicotine dependence, unspecified, uncomplicated; Z79.4 Long term (current) use of insulin
CPT/HCPCS: 80053; 83605; 83690; 85025; 96361; 96374; 96375; 99284; J2270; J2405; J7030

== ENCOUNTER 2017-07-03 02:07 | Emergency (ER) | payer OTHER ==
[~2017-07-03] VITALS: Ht 180.3 cm; Wt 85.4 kg
[~2017-07-03 02:07] MED LIST changes: +REGL10TA5 PO
[2017-07-03 02:19] VITALS: BP 171/151; PULSE 83; RESP 12; TEMP 98.8; O2SAT 98
[2017-07-03] MEDS ORDERED: ONDANSETRON ODT 4 MG TAB PO ONE (02:30)
[2017-07-03] MEDS ORDERED: DICYCLOMINE HCL 20 MG/2 ML VIAL IM ONE (02:30)
[2017-07-03] MEDS ORDERED: LIDOCAINE VISCOUS 2% SOLN 15 ML UDC PO ONE (02:30)
[2017-07-03] MEDS ORDERED: ALUMINUM/MAGNESIUM/SIMETH 30 ML CUP PO ONE (02:30)
--- NOTE | 2017-07-03 02:38 | PD ---
HPI Chief Complaint: Abdominal Pain Time Seen by Provider: 02:21 Travel History International Travel<30 days: No Contact w/Intl Traveler<30days: No Traveled to known affect area: No History of Present Illness HPI PATIENT C/O UPPER/EPIG REGION BURNING PAIN, 12/24, NONRAD....NO ALLEVIATING/ AGGRAVATING FACTORS, WHICH IS SIMILAR TO PREVIOUS EPISODES, HE HAS BEEN REFERRED TO GI SPECIALIST FOR CONFIRMATORY TESTING BUT PATIENT HAS NOT FOLLOWED UP. PATIENT ALSO STATES THAT HE RAN OUT OF HIS XANAX ABOUT 2 DAYS AGO, STATES THAT HE HAS A FOLLOWUP APPOINTMENT ON MONDAY WITH HIS PCP IN [facility]. PATIENT STATES HE TAKES 2MG OF XANAX THREE TIMES A DAY. PFSH Past Medical History Asthma: Yes Anxiety: Yes Depression: Yes Cancer: No Cardiovascular Problems: Yes High Cholesterol: Yes Diabetes: Yes Diminished Hearing: No Gastrointestinal Disorders: Yes (hernia repair at age 8 ) Genitourinary: No Headaches: No Hypertension: No Immune Disorder: No Implanted Vascular Access Dvce: No Musculoskeletal: Yes (chronic back and neck pain) Neurologic: No Psychiatric: Yes (Hx of treatment for depression) Reproductive: No Respiratory: Yes Immunizations Current: Yes Thyroid Disease: No Past Surgical History Abdominal Surgery: Yes (hernia) Appendectomy: Yes Other Surgery: Yes (hernia repair) Social History Alcohol Use: Yes ("NOT REALLY") Tobacco Use: Yes (1 ppd) Substance Use: No Allergies-Medications (Allergen,Severity, Reaction): Coded Allergies: trazodone (Unverified Allergy, Unknown, Swelling, 07/03/17) Reported Meds & Prescriptions Reported Meds & Active Scripts Active Ativan (Lorazepam) 0.5 Mg Tab 0.5 Mg PO DAILY PRN 3 Days Reglan (Metoclopramide HCl) 10 Mg Tab 10 Mg PO QID PRN Omeprazole 40 Mg Cap 40 Mg PO DAILY Flomax (Tamsulosin HCl) 0.4 Mg Cap 0.4 Mg PO HS Pravachol (Pravastatin) 40 Mg Tab 40 Mg PO HS Oxymorphone ER 12 HR (Oxymorphone HCl) 10 Mg Tab 20 Mg PO Q12H Glucophage (Metformin HCl) 500 Mg Tab 500 Mg PO TIDPC Glipizide 10 Mg Tab 10 Mg PO BIDAC Fenofibrate 145 Mg Tab 145 Mg PO DAILY Reported Phenergan (Promethazine HCl) 25 Mg Tablet 25 Mg PO Q6H PRN Sucralfate 1 Gram Tab 1 Gm PO QID on empty stomach Xanax (Alprazolam) 2 Mg Tab 2 Mg PO TID PRN [regular insulin] 20 SQ DAILY Mobic (Meloxicam) 15 Mg Tab 15 Mg PO DAILY Effexor (Venlafaxine HCl) 75 Mg Tab 75 Mg PO DAILY Ventolin Hfa 18 GM Inh (Albuterol Sulfate) 90 Mcg/Act Aer 2 Puff INH Q4H PRN Review of Systems General / Constitutional: No: Fever Eyes: No: Visual changes HENT: No: Headaches Cardiovascular: No: Chest Pain or Discomfort Respiratory: No: Shortness of Breath Gastrointestinal: Positive: Abdominal Pain (EPIG) Genitourinary: No: Dysuria Musculoskeletal: No: Pain Skin: No Rash Neurologic: No: Weakness Psychiatric: Positive: Anxiety Endocrine: No: Polydipsia Hematologic/Lymphatic: No: Easy Bruising Physical Exam Narrative GENERAL: SKIN: Warm and dry. HEAD: Atraumatic. Normocephalic. EYES: Pupils equal and round. No scleral icterus. No injection or drainage. ENT: No nasal bleeding or discharge. Mucous membranes pink and moist. NECK: Trachea midline. No JVD. CARDIOVASCULAR: Regular rate and rhythm. RESPIRATORY: No accessory muscle use. Clear to auscultation. Breath sounds equal bilaterally. GASTROINTESTINAL: Abdomen soft, non-tender, nondistended. WHEN DISTRACTED ABSOLUTELY PAIN FREE. MUSCULOSKELETAL: Extremities without clubbing, cyanosis, or edema. No obvious deformities. NEUROLOGICAL: Awake and alert. No obvious cranial nerve deficits. Motor grossly within normal limits. Five out of 5 muscle strength in the arms and legs. Normal speech. PSYCHIATRIC: Appropriate mood and affect; insight and judgment normal. Data Data Last Documented VS Vital Signs Date Time Temp Pulse Resp B/P (MAP) Pulse Ox O2 Delivery O2 Flow Rate FiO2 07/03/17 02:59 20 07/03/17 02:19 98.8 83 171/151 (158) 98 Orders Orders Abdomen, Flat & Upright (07/03/17 ) Dicyclomine Inj (Bentyl Inj) (07/03/17 02:30) Al-Mag Hy-Si 40-40-4 Mg/Ml Liq (Mag-Al P (07/03/17 02:30) Lidocaine 2% Viscous (Xylocaine 2% Visco (07/03/17 02:30) Ondansetron Odt (Zofran Odt) (07/03/17 02:30) Electrocardiogram (07/03/17 02:39) Blood Glucose (07/03/17 02:39) MDM Medical Decision Making Medical Screen Exam Complete: Yes Emergency Medical Condition: Yes Medical Record Reviewed: Yes Interpretation(s) EKG NSR 71, NORMAL INTERVALS, NO STEMI PATTERN AND NO MAJOR CHANGES WHEN C/W MAY 29, 2017 EKG Differential Diagnosis MALINGERING V MISUSE OF HIS MEDICATIONS V BZD WITHDRAWAL V STEMI V HYPOGLYCEMIA Narrative Course THIS WILL BE PATIENT'S 5TH VISIT IN 6 WEEKS FOR SAME EXACT COMPLAINT. PATIENT HAS HAD MULTIPLE CBC, CMP, LIPASE, CT OF ABDOMEN WHICH HAVE BEEN NONDIAGNOSTIC..... AND IN JANUARY WAS ADMITTED TO [facility] AND HAD A NEG STRESS TEST. PATIENT IS ALREADY ON CARAFATE AND PREVACID AND HAS BEEN REFERRED TO GI.......USPICIOUS OF HIS UNDERLYING TRUE REASONS FOR VISITING ER WHEN THE ONLY MEDICATION HE HAS RUN OUT OF HIS XANAX... IF I CHOOSE TO BELIEVE PATIENT (I CURRENTLY LACK ANY TACHYCARDIA, SEIZURE ACTIVITY, HYPERTENSION, ETC WITHDRAWAL SIGNS) THEN TO PURELY AVOID BZD WITHDRAWAL PATIENT WILL BE WRITTEN FOR TWO BZD PILLS. OF NOTE XRAY IS NEG FOR FREE AIR/NO SBO/ILEUS PATTERN EITHER...ACCUCHECK 190, EKG WITHOUT SIG CHANGES WHEN C/W MAY 29, 2017 Diagnosis Primary Impression: DYSPEPSIA Additional Impression: MEDICATION REFILL Referrals: Bradley Flowers MD FOR FURTHER CARE OF YOUR SYMPTOMS Patient Instructions: Diet for Stomach Ulcers and Gastritis (GEN), Gastritis ( ED), General Instructions Scripts Lorazepam (Ativan) 0.5 Mg Tab 0.5 MG PO DAILY Y for ANXIETY AND/OR AGITATION for 3 Days, #3 TAB 0 Refills Prov: Phan Grayson MD 07/03/17 Disposition: 01 DISCHARGE HOME Condition: Stable Phan Grayson MD Jul 03, 2017 02:38
[2017-07-03] MEDS ORDERED: SUCR1TAB PO (02:39)
[2017-07-03] MEDS ORDERED: PROM25TA10 PO (02:39)
[2017-07-03] MEDS ORDERED: LORA-392 PO (03:03)
[2017-07-03 03:36] VITALS: BP 194/79
--- NOTE | 2017-07-03 03:57 | RADRPT ---
EXAM DATE/TIME: 07/03/2017 03:09 [facility] COMPARISON: No previous studies available for comparison. INDICATIONS : Nausea. MEDICAL HISTORY : Diabetes mellitus type II. SURGICAL HISTORY : Umbilical hernia repair. Appendectomy. ENCOUNTER: Initial ACUITY: 1 day PAIN SCORE: 0/10 LOCATION: abdomen, all quadrants. FINDINGS: Supine and upright views of the abdomen were performed. The abdominal bowel gas pattern is normal. No air fluid levels are seen. No abnormal masses, calcifications, or organomegaly is seen. The visu alized lower lungs are clear. No evidence of free intraperitoneal gas. The osseous structures are u nremarkable. CONCLUSION: No acute disease. Ronaldo Cantrell MD on July 03, 2017 at 3:54 Board Certified Radiologist. This report was verified electronically.
--- NOTE | 2017-07-03 17:57 | EKG ---
Date Performed: 07/03/2017 Time Performed: 02:46:49 PTAGE: 57 years EKG: Sinus rhythm PATTERN CONSISTENT WITH PULMONARY DISEASE LEFT ANTERIOR FASCICULAR BLOCK ABNORMAL ECG Since PREVIOUS TRACING , no significant change noted PREVIOUS TRACIN05/29/2017 21.35 DOCTOR: Jonah Martins Interpretating Date/Time 07/03/2017 17:55:06
== END 2017-07-03 03:38 | disposition home or self-care (01) ==
LOC: PHED 02:07
DX: R10.13 Epigastric pain (principal); R94.31 Abnormal electrocardiogram [ECG] [EKG]; Z76.0 Encounter for issue of repeat prescription; Z72.0 Tobacco use
CPT/HCPCS: 74020; 93005; 96372; 99284; J0500

== ENCOUNTER 2017-08-16 23:31 | Emergency (ER) | payer OTHER ==
[~2017-08-16] VITALS: Ht 180.3 cm; Wt 87.0 kg
[~2017-08-16 23:31] MED LIST changes: +LORA-392 PO; +PROM25TA10 PO; +SUCR1TAB PO
[2017-08-16 23:37] VITALS: BP 170/84; PULSE 76; RESP 20; TEMP 97.9; O2SAT 100
[2017-08-16 23:59] VITALS: O2SAT 99
--- NOTE | 2017-08-16 23:59 | PD ---
HPI Chief Complaint: Chest Pain Time Seen by Provider: 23:42 Travel History International Travel<30 days: No Contact w/Intl Traveler<30days: No Traveled to known affect area: No History of Present Illness HPI The patient is a 57-year-old male who presents to the emergency department via EMS for chest pain. The patient states he smoked methamphetamines earlier tonight and subsequently developed chest pain. The chest pain is substernal, described as pressure, nonradiating, and assisted with mild shortness of breath. He denies any nausea or vomiting. He does have a history of hyperlipidemia and diabetes, denies any known history of hypertension or coronary artery disease. He denies any previous cardiac catheterizations or stent placement. He did undergo a stress test over the summer 2016 which was unremarkable. He does have a history of tobacco use. Symptoms are moderate, possibly exacerbated after smoking methamphetamines, and there are no current alleviating factors. PFSH Past Medical History Asthma: Yes Anxiety: Yes Depression: Yes Cardiovascular Problems: Yes High Cholesterol: Yes Chest Pain: Yes Diabetes: Yes Patient Takes Glucophage: Yes Diminished Hearing: No Gastrointestinal Disorders: Yes Genitourinary: No Headaches: No Hypertension: No Immune Disorder: No Implanted Vascular Access Dvce: No Musculoskeletal: Yes Neurologic: No Psychiatric: Yes Reproductive: No Respiratory: Yes Immunizations Current: Yes Thyroid Disease: No Past Surgical History Abdominal Surgery: Yes (INGUINAL HERNIA REPAIR) Appendectomy: Yes Other Surgery: Yes (hernia repair) Social History Alcohol Use: Yes (VERY RARELY) Tobacco Use: Yes (1.5 PPD) Substance Use: Yes (METH) Allergies-Medications (Allergen,Severity, Reaction): Coded Allergies: trazodone (Unverified Allergy, Unknown, Swelling, 08/16/17) Reported Meds & Prescriptions Reported Meds & Active Scripts Active Ativan (Lorazepam) 0.5 Mg Tab 0.5 Mg PO DAILY PRN 3 Days Omeprazole 40 Mg Cap 40 Mg PO DAILY Flomax (Tamsulosin HCl) 0.4 Mg Cap 0.4 Mg PO HS Pravachol (Pravastatin) 40 Mg Tab 40 Mg PO HS Oxymorphone ER 12 HR (Oxymorphone HCl) 10 Mg Tab 20 Mg PO Q12H Glucophage (Metformin HCl) 500 Mg Tab 500 Mg PO TIDPC Glipizide 10 Mg Tab 10 Mg PO BIDAC Fenofibrate 145 Mg Tab 145 Mg PO DAILY Reported Phenergan (Promethazine HCl) 25 Mg Tablet 25 Mg PO Q6H PRN Sucralfate 1 Gram Tab 1 Gm PO QID on empty stomach Xanax (Alprazolam) 2 Mg Tab 2 Mg PO TID PRN [regular insulin] 20 SQ DAILY Mobic (Meloxicam) 15 Mg Tab 15 Mg PO DAILY Effexor (Venlafaxine HCl) 75 Mg Tab 75 Mg PO DAILY Ventolin Hfa 18 GM Inh (Albuterol Sulfate) 90 Mcg/Act Aer 2 Puff INH Q4H PRN Review of Systems Except as stated in HPI: all other systems reviewed are Neg General / Constitutional: No: Fever Cardiovascular: Positive: Chest Pain or Discomfort, No: Diaphoresis Respiratory: Positive: Shortness of Breath Gastrointestinal: No: Nausea, Vomiting, Abdominal Pain Musculoskeletal: No: Weakness, Edema Psychiatric: Positive: Substance Abuse Physical Exam Narrative GENERAL: Awake, alert, pleasant 37-year-old male who appears his stated age and is in no acute respiratory distress. SKIN: Focused skin assessment warm/dry. HEAD: Atraumatic. Normocephalic. EYES: Pupils equal and round. 2 mm bilateral and reactive. ENT: No nasal bleeding or discharge. Mucous membranes pink and moist. NECK: Trachea midline. No JVD. CARDIOVASCULAR: Regular rate and rhythm. No murmur appreciated. Heart rate in the 60s. RESPIRATORY: No accessory muscle use. Clear to auscultation. Breath sounds equal bilaterally. GASTROINTESTINAL: Abdomen soft, non-tender, nondistended. No rebound tenderness. MUSCULOSKELETAL: No obvious deformities. No clubbing. No cyanosis. No edema. NEUROLOGICAL: Awake and alert. No obvious cranial nerve deficits. Motor grossly within normal limits. Normal speech. Nonfocal. PSYCHIATRIC: Appropriate mood and affect; insight and judgment normal. Data Data Last Documented VS Vital Signs Date Time Temp Pulse Resp B/P (MAP) Pulse Ox O2 Delivery O2 Flow Rate FiO2 08/17/17 03:27 80 22 95/67 (76) 100 Nasal Cannula 2.00 08/16/17 23:37 97.9 Orders Orders Electrocardiogram (08/16/17 23:54) Ckmb (Isoenzyme) Profile (08/16/17 23:54) Complete Blood Count With Diff (08/16/17 23:54) Comprehensive Metabolic Panel (08/16/17 23:54) Magnesium (Mg) (08/16/17 23:54) Prothrombin Time / Inr (Pt) (08/16/17 23:54) Act Partial Throm Time (Ptt) (08/16/17 23:54) Troponin I (08/16/17 23:54) Chest, Single Ap (08/16/17 23:54) Ecg Monitoring (08/16/17 23:54) Bilateral Bp Monitoring (08/16/17 23:54) Iv Access Insert/Monitor (08/16/17 23:54) Oximetry (08/16/17 23:54) Oxygen Administration (08/16/17 23:54) Aspirin Chew (Aspirin Chew) (08/17/17 00:00) Morphine Inj (Morphine Inj) (08/17/17 00:00) Sodium Chloride 0.9% Flush (Ns Flush) (08/17/17 00:00) Nitroglycerin Sl (Nitrostat Sl) (08/17/17 00:00) Sodium Chlorid 0.9% 500 Ml Inj (Ns 500 M (08/17/17 00:00) Ondansetron Inj (Zofran Inj) (08/17/17 00:00) CKMB (08/17/17 00:10) CKMB% (08/17/17 00:10) Troponin I (08/17/17 03:00) Troponin I (08/17/17 03:05) Clonazepam (Klonopin) (08/17/17 03:45) Ed Discharge Order (08/17/17 03:51) Labs Laboratory Tests Test 08/17/17 00:10 08/17/17 01:20 08/17/17 03:15 White Blood Count 11.3 TH/MM3 Red Blood Count 4.90 MIL/MM3 Hemoglobin 14.3 GM/DL Hematocrit 41.3 % Mean Corpuscular Volume 84.2 FL Mean Corpuscular Hemoglobin 29.1 PG Mean Corpuscular Hemoglobin Concent 34.5 % Red Cell Distribution Width 12.4 % Platelet Count 231 TH/MM3 Mean Platelet Volume 8.3 FL Neutrophils (%) (Auto) 70.9 % Lymphocytes (%) (Auto) 19.0 % Monocytes (%) (Auto) 8.9 % Eosinophils (%) (Auto) 1.0 % Basophils (%) (Auto) 0.2 % Neutrophils # (Auto) 8.0 TH/MM3 Lymphocytes # (Auto) 2.1 TH/MM3 Monocytes # (Auto) 1.0 TH/MM3 Eosinophils # (Auto) 0.1 TH/MM3 Basophils # (Auto) 0.0 TH/MM3 CBC Comment DIFF FINAL Differential Comment Prothrombin Time 11.3 SEC Prothromb Time International Ratio 1.1 RATIO Activated Partial Thromboplast Time 26.0 SEC Blood Urea Nitrogen 15 MG/DL Creatinine 0.84 MG/DL Random Glucose 187 MG/DL Total Protein 6.7 GM/DL Albumin 3.6 GM/DL Calcium Level 8.5 MG/DL Magnesium Level 1.7 MG/DL Alkaline Phosphatase 103 U/L Aspartate Amino Transf (AST/SGOT) 12 U/L Alanine Aminotransferase (ALT/SGPT) 24 U/L Total Bilirubin 0.7 MG/DL Sodium Level 134 MEQ/L Potassium Level 3.6 MEQ/L Chloride Level 97 MEQ/L Carbon Dioxide Level 28.0 MEQ/L Anion Gap 9 MEQ/L Estimat Glomerular Filtration Rate 95 ML/MIN Total Creatine Kinase 144 U/L Creatine Kinase MB 3.2 NG/ML Troponin I LESS THAN 0.02 NG/ML LESS THAN 0.02 NG/ML LESS THAN 0.02 NG/ML MDM Medical Decision Making Medical Screen Exam Complete: Yes Emergency Medical Condition: Yes Medical Record Reviewed: Yes Interpretation(s) EKG reveals normal sinus rhythm with a rate of 63. Moderate intraventricular conduction delay with QRS of 160 ms. Laboratory Tests Test 08/17/17 00:10 White Blood Count 11.3 TH/MM3 Red Blood Count 4.90 MIL/MM3 Hemoglobin 14.3 GM/DL Hematocrit 41.3 % Mean Corpuscular Volume 84.2 FL Mean Corpuscular Hemoglobin 29.1 PG Mean Corpuscular Hemoglobin Concent 34.5 % Red Cell Distribution Width 12.4 % Platelet Count 231 TH/MM3 Mean Platelet Volume 8.3 FL Neutrophils (%) (Auto) 70.9 % Lymphocytes (%) (Auto) 19.0 % Monocytes (%) (Auto) 8.9 % Eosinophils (%) (Auto) 1.0 % Basophils (%) (Auto) 0.2 % Neutrophils # (Auto) 8.0 TH/MM3 Lymphocytes # (Auto) 2.1 TH/MM3 Monocytes # (Auto) 1.0 TH/MM3 Eosinophils # (Auto) 0.1 TH/MM3 Basophils # (Auto) 0.0 TH/MM3 CBC Comment DIFF FINAL Differential Comment Prothrombin Time 11.3 SEC Prothromb Time International Ratio 1.1 RATIO Activated Partial Thromboplast Time 26.0 SEC Blood Urea Nitrogen 15 MG/DL Creatinine 0.84 MG/DL Random Glucose 187 MG/DL Total Protein 6.7 GM/DL Albumin 3.6 GM/DL Calcium Level 8.5 MG/DL Magnesium Level 1.7 MG/DL Alkaline Phosphatase 103 U/L Aspartate Amino Transf (AST/SGOT) 12 U/L Alanine Aminotransferase (ALT/SGPT) 24 U/L Total Bilirubin 0.7 MG/DL Sodium Level 134 MEQ/L Potassium Level 3.6 MEQ/L Chloride Level 97 MEQ/L Carbon Dioxide Level 28.0 MEQ/L Anion Gap 9 MEQ/L Estimat Glomerular Filtration Rate 95 ML/MIN Total Creatine Kinase 144 U/L Creatine Kinase MB 3.2 NG/ML Troponin I LESS THAN 0.02 NG/ML Differential Diagnosis Differential diagnosis includes ACS, methamphetamine side effect, Prinzmetal's angina, STEMI, pneumothorax, sympathomimetic crisis. Narrative Course IV was established, labs are drawn and sent, and the patient was placed on cardiac telemetry monitoring and continuous pulse oximetry monitoring. EKG was ordered and interpreted. The patient was administered aspirin, nitroglycerin paste, morphine, Zofran, and IV fluids. Chest x-ray was obtained. Chest x-ray was unremarkable. Initial troponin was negative. A second, 3 hour troponin level was ordered. I reviewed the patient's EMR, he had a negative stress test performed on January 16, 2017, nuclear medicine myocardial perfusion scan which was negative, low risk at less than 1%. The patient's second troponin is less than 0.03. The patient is stable for outpatient follow-up. He is advised to stop using illicit drugs such as methamphetamines. Diagnosis Primary Impression: Atypical chest pain Additional Impression: Substance abuse Patient Instructions: General Instructions Additional Instructions: Stop smoking methamphetamines. Follow-up with your primary physician. Return if symptoms worsen or progress. Med/Other Pt SpecificInfo: No Change to Meds Disposition: 01 DISCHARGE HOME Condition: Stable Satinder Delcid MD Aug 16, 2017 23:59
[2017-08-17] MEDS ORDERED: ONDANSETRON HCL 4 MG/2 ML VIAL IV PUSH ONE
[2017-08-17] MEDS ORDERED: ASPIRIN 81 MG CHEW TAB PO ONE
[2017-08-17] MEDS ORDERED: MORPHINE SULFATE 4 MG/ML INJ IV PUSH ONE
[2017-08-17] MEDS ORDERED: SODIUM CHLORIDE 0.9% FLUSH 10 ML FLUSH IVF PRN
[2017-08-17] MEDS ORDERED: SODIUM CHLORID 0.9% 500 ML INJ 500 ML IV ONE
[2017-08-17] MEDS: NITROGLYCERIN 0.4 MG SL 25 TABS/BTL SL SCH ×3 (00:10→00:21)
[2017-08-17 00:28] LABS: BASOPHIL % 0.2 % (0.0-2.0); EOSINOPHIL # 0.1 TH/MM3 (0-0.4); HEMATOCRIT 41.3 % (39.0-51.0); HEMOGLOBIN 14.3 GM/DL (13.0-17.0); LYMPHOCYTE # 2.1 TH/MM3 (1.0-4.8); MEAN CELL VOLUME 84.2 FL (80.0-100.0); MEAN CORPUSCULAR HEMOGLOBIN 29.1 PG (27.0-34.0); MEAN CORPUSCULAR HGB CONC 34.5 % (32.0-36.0); MEAN PLATELET VOLUME 8.3 FL (7.0-11.0); MONO % 8.9 % (0.0-8.0); NEUT % 70.9 % (16.0-70.0); PLATELET COUNT 231 TH/MM3 (150-450); RED CELL DISTRIBUTION WIDTH 12.4 % (11.6-17.2); WHITE BLOOD COUNT 11.3 TH/MM3 (4.0-11.0)
[2017-08-17 00:33] VITALS: BP_SYST 166; BP_SYST 170; BP_DIAS 76; BP_DIAS 84; PULSE 86; RESP 22; O2SAT 98
[2017-08-17 00:39] LABS: INTERNATIONAL NORMALIZED RATIO 1.1 RATIO; PROTHROMBIN TIME - PATIENT 11.3 SEC (9.8-11.6)
[2017-08-17 00:44] LABS: ALBUMIN 3.6 GM/DL (3.4-5.0); ALT (GPT) 24 U/L (12-78); AST (GOT) 12 U/L (15-37); BLOOD UREA NITROGEN 15 MG/DL (7-18); CALCIUM 8.5 MG/DL (8.5-10.1); CHLORIDE 97 MEQ/L (98-107); CREATININE 0.84 MG/DL (0.60-1.30); GLOMERULAR FILTRATION RATE 95 ML/MIN (>89); GLUCOSE,RANDOM 187 MG/DL (74-106); MAGNESIUM 1.7 MG/DL (1.5-2.5); SODIUM (NA) 134 MEQ/L (136-145)
[2017-08-17 00:48] LABS: ALKALINE PHOSPHATASE 103 U/L (45-117); TOTAL BILIRUBIN ADULT 0.7 MG/DL (0.2-1.0); TOTAL PROTEIN 6.7 GM/DL (6.4-8.2); TROPONIN I LESS THAN 0.02 NG/ML (0.02-0.05)
--- NOTE | 2017-08-17 00:58 | RADRPT ---
EXAM DATE/TIME: 08/16/2017 23:59 [facility] COMPARISON: CHEST SINGLE AP, May 29, 2017, 21:35. INDICATIONS : Chest pressure. MEDICAL HISTORY : Diabetes mellitus type II. SURGICAL HISTORY : Umbilical hernia repair. Appendectomy. ENCOUNTER: Initial ACUITY: 1 day PAIN SCORE: 8/10 LOCATION: Bilateral chest FINDINGS: A single view of the chest demonstrates the lungs to be symmetrically aerated without evidence of mas s, infiltrate or effusion. The cardiomediastinal contours are unremarkable. Osseous structures are intact. CONCLUSION: No acute disease. Mason Banda MD on August 17, 2017 at 0:56 Board Certified Radiologist. This report was verified electronically.
[2017-08-17 01:02] VITALS: BP 99/65; PULSE 85; RESP 24; O2SAT 98
[2017-08-17 02:11] VITALS: BP 102/56; PULSE 87; RESP 16; O2SAT 98
[2017-08-17 03:27] VITALS: BP 95/67; PULSE 80; RESP 22; O2SAT 100
[2017-08-17] MEDS ORDERED: clonazePAM 1 MG TAB PO ONE (03:45)
--- NOTE | 2017-08-17 08:10 | EKG ---
Date Performed: 08/17/2017 Time Performed: 04:02:58 PTAGE: 57 years EKG: Sinus rhythm MARKED LEFT AXIS DEVIATION MODERATE INTRAVENTRICULAR CONDUCTION DELAY ABNORMAL ECG No significant ch hector from prior electrocardiogram. PREVIOUS TRACING : 08/16/2017 23.42 DOCTOR: Jay Lopez Interpretating Date/Time 08/17/2017 08:08:39
--- NOTE | 2017-08-17 08:11 | EKG ---
Date Performed: 08/16/2017 Time Performed: 23:42:35 PTAGE: 57 years EKG: Sinus rhythm MARKED LEFT AXIS DEVIATION MODERATE INTRAVENTRICULAR CONDUCTION DELAY ABNORMAL ECG No significant ch hector from prior electrocardiogram. PREVIOUS TRACING : 07/03/2017 02.46 DOCTOR: Jay Lopez Interpretating Date/Time 08/17/2017 08:10:46
== END 2017-08-17 04:33 | disposition home or self-care (01) ==
LOC: NEPE 23:31
DX: R07.89 Other chest pain (principal); F15.10 Other stimulant abuse, uncomplicated; E11.9 Type 2 diabetes mellitus without complications; E78.00 Pure hypercholesterolemia, unspecified; F17.200 Nicotine dependence, unspecified, uncomplicated; Z79.4 Long term (current) use of insulin; Z79.899 Other long term (current) drug therapy
CPT/HCPCS: 71045; 80053; 82550; 82552; 83735; 84484; 85025; 85610; 85730; 93005; 96374; 96375; 99285; J2270; J2405; J7040